=== PATIENT | female | born 1970 | race African-American/Black ===

== ENCOUNTER 2021-02-08 00:12 | Inpatient (IN) | payer OTHER ==
[~2021-02-08] VITALS: Ht 162.6 cm; Wt 100.8 kg
[2021-02-08] VITALS (64 sets, daily range): BP systolic 95–134; BP diastolic 57–81
[~2021-02-08 00:12] MED LIST: ADVAIR 250-501 EACH INH; ALBUTEROL INHAL17 GM INH; AMOXICILLIN875 MG PO; MEDROLDOSEPACK PO; NORCO 5-325 TA1 EACH PO; PROVENTIL IH; [UNRECOGNIZED DRUG - OTHER] MM
[2021-02-08 00:40] LABS: BE(vivo) -0.8 mmol/L (-2 to +3); HCO3 24.3 mmol/L (22.0-26.0); PCO2 42.1 mmHg (35.0-45.0); sO2 72.2 % (92.0-98.0)
[2021-02-08 00:41] LABS: PO2 38.8 mmHg (80.0-100.0)
[2021-02-08 00:47] LABS: MCH 27.6 pg (26.0-34.0); MCHC 32.4 g/dL (28.0-37.0)
[2021-02-08 00:49] LABS: MCV 85.1 fL (80.0-100.0); PLATELET COUNT 195 thou/uL (150-400); RDW 13.7 % (10.5-14.5); WBC 19.4 thou/uL (4.0-11.0)
[2021-02-08 00:53] LABS: CALCIUM 8.3 mg/dL (8.5-10.1); CREATININE 1.2 mg/dL (0.6-1.0); POTASSIUM 4.8 mmol/L (3.5-5.1)
[2021-02-08 01:03] LABS: DIRECT BILIRUBIN 0.2 mg/dL (<0.1-0.2); TOTAL BILIRUBIN 0.8 mg/dL (0.2-1.0); TOTAL PROTEIN 8.8 g/dL (6.4-8.2)
[2021-02-08 01:35] LABS: ABSOLUTE NEUTROPHILS 17.1 thou/uL (1.4-8.2); ANISOCYTOSIS 1+; LARGE PLATELETS FEW; PLATELET ESTIMATE NORMAL; POIKILOCYTOSIS 1+
[2021-02-08 07:33] LABS: HCO3 24.6 mmol/L (22.0-26.0); PCO2 61.6 mmHg (35.0-45.0); PO2 58.2 mmHg (80.0-100.0); sO2 84.1 % (92.0-98.0)
--- NOTE | 2021-02-08 08:15 | EKG ---
[address] [place] [address] ELECTROCARDIOGRAM REPORT Name: RICCI DRISCOLL Room #: 237-P [facility] IN M.R.#: [id number] Admission: 02/08/21 Attend Phys: Jimmy Jacobson MD Discharge: Date of : 72 Report #: [id number] [facility] ED Test Date: 2021-02-08 Test Time: 07:41:23 Pat Name: RICCI DRISCOLL Department: Room: 237 Gender: F Investment Fund Manager: thomas : 1970 Requested By: Zuleyka Singer Order Number: [id number] MD: Tee Monique Measurements Intervals [place] Rate: 104 P: 54 AL: 186 QRS: 88 QRSD: 109 T: 33 QT: 359 QTc: 473 Interpretive Statements Sinus tachycardia Poor R wave progression No previous ECG available for comparison Electronically Signed On 02-08-2021 8:15:19 CDT by Tee Monique [email or web address] <ELECTRONICALLY SIGNED> By: Tee Monique MD, [facility] 02/08/21 0815 [id number] Tee Monique MD, FACC /EPI
--- NOTE | 2021-02-08 09:12 | NUR ---
Pt arrived from ED around 0745 - Propofol, Versed, Fentanyl, and levophed infusing. Upon arrival BP stable with MAP in 80's, O2 sat 95% on vent, resp rate elevated into 40's. Cellphone and limited clothing in personal belongings bag at bedside.
--- NOTE | 2021-02-08 09:23 | NUR ---
Spoke with pt mother, Jessi, on the phone gave general update on pt condition and ventilator settings/drips. Mother stated she is a nurse as well and will be the primary contact to relay everyting to the rest of the family. RN informed mother of potential plan to begin paralytic for vent compliance and continue abx and sedation. Jessi stated she would call back later for an update to give patient's kids.
[2021-02-08 12:14] LABS: BE(vivo) -6.3 mmol/L (-2 to +3); HCO3 22.1 mmol/L (22.0-26.0); PCO2 56.8 mmHg (35.0-45.0); PO2 58.2 mmHg (80.0-100.0); sO2 83.8 % (92.0-98.0)
[2021-02-08 12:16] LABS: pH 7.208 (7.360-7.450)
--- NOTE | 2021-02-08 12:38 | NUR ---
VAT CONSULTED FOR CVL PLACEMENT. RIGHT 6FR TL JACC CATHETER PLACED. ALL LUMENS FLUSH BRISKLY AND RETURN BLOOD. PT TOLERATED WELL. RADIOLOGY REPORT TIP OVERLIES ATRIUM. RELEASED FOR USE, PER HOSPITAL VASCULAR ACCESS POLICY.
--- NOTE | 2021-02-08 13:37 | NUR ---
Pt proned successfully at 1315- VSS, no complications.
--- NOTE | 2021-02-08 15:34 | NUR ---
New admit today. COVID +. Enhanced isolation. vent 100% FIO2, peep 14. CM spoke with her mom, intro to jerzy. Janel lives at home with 2 young daughter 14 and 21 year old who little handicapped. Grandma looking after granddaughter while janel is here. Patient does not work. Goes [facility] for [facility] medication and to see dr. David harper or [facility]?. Janel has 5 living children in the area, other older. No dme. 2 steps in from garage. Independent when feeling ok, don't think she had the covid vaccine per mom janie. Discussed during unit rounds, per Pulmonary MD try transfer for ecmo.
--- NOTE | 2021-02-08 18:40 | NUR ---
Spoke with mother on phone - updated on central line, proning, and chemical paralyzation, general plan for rest. Mother stated she would check back in the morning to see how she is doing.
[2021-02-09] VITALS (92 sets, daily range): BP systolic 82–133; BP diastolic 52–81
--- NOTE | 2021-02-09 00:03 | NUR ---
This RN spoke to Erika Rubin NP at [phone] regarding patients hyperglycemia. Discussed insulin gtt and medications. No orders at this time.
[2021-02-09 02:06] LABS: GLYCOHEMOGLOBIN (HGB A1C) 10.3 % (4.8-5.6)
--- NOTE | 2021-02-09 02:20 | NUR ---
This RN , Hal, RT and team flipped patient supine at 0130. Patient tolerated well. Remains on nimbex for ventilator compliance. Will continue to monitor.
[2021-02-09 04:54] LABS: ABSOLUTE NEUTROPHILS 12.6 thou/uL (1.4-8.2); BASOPHILS 0.2 % (0.0-2.0); D-DIMER 1.87 ug/mLFEU (0.19-0.50); HEMOGLOBIN 11.9 gm/dL (12.0-15.0); INR 1.03; LYMPHOCYTES 4.1 % (24.0-44.0); MCH 28.9 pg (26.0-34.0); MCHC 33.1 g/dL (28.0-37.0); MCV 87.2 fL (80.0-100.0); PLATELET COUNT 236 thou/uL (150-400); POLYS 92.7 % (36.0-66.0); PROTIME 11.2 Seconds (10.5-12.1); RBC 4.13 mil/uL (4.20-5.00); RDW 13.7 % (10.5-14.5); WBC 13.5 thou/uL (4.0-11.0)
[2021-02-09 05:04] LABS: FIBRINOGEN > 860 mg/dL (201-437)
[2021-02-09 05:13] LABS: ALBUMIN 2.1 g/dL (3.4-5.0); CALCIUM 7.5 mg/dL (8.5-10.1); CREATININE 1.4 mg/dL (0.6-1.0); DIRECT BILIRUBIN 0.3 mg/dL (<0.1-0.2); PHOSPHORUS 3.2 mg/dL (2.5-4.9); POTASSIUM 4.8 mmol/L (3.5-5.1); TOTAL BILIRUBIN 0.6 mg/dL (0.2-1.0); TOTAL PROTEIN 7.1 g/dL (6.4-8.2)
--- NOTE | 2021-02-09 07:22 | NUR ---
Spoke with mother Jessi on phone, got verbal consent for Actemra and "anything you need to do to help my baby".
--- NOTE | 2021-02-09 11:37 | NUR ---
Spoke with pt mother and aunt on phone. Gave general updates and plan for the day including proning and potential PEEP wean. Mother Jessi stated she was very grateful for the ICU team and would call back later this evening to check on her.
--- NOTE | 2021-02-09 13:17 | NUR ---
Proned pt at 1315, tolerated turn. BP 109/75, O2 sat 92%. Sedation and TF running well, no interruptions.
--- NOTE | 2021-02-09 15:04 | NUR ---
Chart review, discussed during los hospitalist and in unit rounds with pulmonary MD. Vent 80-100% FIO2, nutritional support. Spoke with [facility] with [facility] transfer [facility], all machine for ecmo in use, no machine at this time. Discuss with Md to see what to cont. to try and transfer for ecmo over the weekend, if so call [facility] # [phone] to see if have any open ecmo and if can accept. Cm called [facility] transfer center [phone], spoke with Gema will call back if able to accept.
[2021-02-10] VITALS (83 sets, daily range): BP systolic 90–139; BP diastolic 51–88
[2021-02-10 00:06] LABS: HIV ANTIBODY Non Reactive (Non Reactive)
[2021-02-10 06:19] LABS: HEMATOCRIT 35.5 % (37.0-47.0); HEMOGLOBIN 11.5 gm/dL (12.0-15.0); MCH 27.9 pg (26.0-34.0); MCHC 32.4 g/dL (28.0-37.0); MCV 86.2 fL (80.0-100.0); RBC 4.12 mil/uL (4.20-5.00); WBC 13.9 thou/uL (4.0-11.0)
[2021-02-10 06:29] LABS: DIRECT BILIRUBIN 0.4 mg/dL (<0.1-0.2)
[2021-02-10 06:37] LABS: ALBUMIN 1.9 g/dL (3.4-5.0); CALCIUM 7.2 mg/dL (8.5-10.1); CREATININE 2.1 mg/dL (0.6-1.0); POTASSIUM 5.4 mmol/L (3.5-5.1); TOTAL BILIRUBIN 0.5 mg/dL (0.2-1.0); TOTAL PROTEIN 6.3 g/dL (6.4-8.2)
--- NOTE | 2021-02-10 12:03 | NUR ---
ASSUMED CARE OF PT AT 0700 DR. PÉREZ AT BEDSIDE AT 0830, ORDERS GIVEN TO STOP INSULIN DRIP AND START SLIDING SCALE. DR. PÉREZ WILL REASSES TOMORROW.
[2021-02-11] VITALS (56 sets, daily range): BP systolic 105–147; BP diastolic 60–88
[2021-02-11 06:08] LABS: HEMATOCRIT 35.1 % (37.0-47.0); HEMOGLOBIN 11.3 gm/dL (12.0-15.0); MCH 28.3 pg (26.0-34.0); MCHC 32.2 g/dL (28.0-37.0); MCV 87.8 fL (80.0-100.0); RDW 14.6 % (10.5-14.5); WBC 14.5 thou/uL (4.0-11.0)
[2021-02-11 06:15] LABS: DIRECT BILIRUBIN 0.3 mg/dL (<0.1-0.2); PHOSPHORUS 5.9 mg/dL (2.5-4.9)
[2021-02-11 06:57] LABS: CALCIUM 7.1 mg/dL (8.5-10.1); POTASSIUM 5.5 mmol/L (3.5-5.1); TOTAL BILIRUBIN 0.4 mg/dL (0.2-1.0); TOTAL PROTEIN 6.5 g/dL (6.4-8.2)
[2021-02-11 07:01] LABS: CREATININE 3.3 mg/dL (0.6-1.0)
--- NOTE | 2021-02-11 11:43 | NUR ---
ASSUMED CARE OF PT AT 0700. DR. PÉREZ AND DR. SEALS AT BEDSIDE AT 0845. ORDERS GIVEN. WILL FOLLOW POC.
[2021-02-11 16:48] LABS: CALCIUM 6.9 mg/dL (8.5-10.1); CREATININE 3.6 mg/dL (0.6-1.0); POTASSIUM 5.6 mmol/L (3.5-5.1)
--- NOTE | 2021-02-11 18:11 | NUR ---
PT TURNED FROM PRONE TO SUPINE AT 1420. NO COMPLICATIONS. VSS. WILL CONTINUE TO FOLLOW POC.
[2021-02-12] VITALS (50 sets, daily range): BP systolic 97–152; BP diastolic 56–88
[2021-02-12 04:36] LABS: BE(vivo) -8.1 mmol/L (-2 to +3); PCO2 45.6 mmHg (35.0-45.0); PO2 100.8 mmHg (80.0-100.0); sO2 96.6 % (92.0-98.0)
[2021-02-12 04:39] LABS: pH 7.238 (7.360-7.450)
[2021-02-12 04:52] LABS: HEMATOCRIT 34.5 % (37.0-47.0); HEMOGLOBIN 11.1 gm/dL (12.0-15.0); MCHC 32.2 g/dL (28.0-37.0); RBC 3.97 mil/uL (4.20-5.00); RDW 14.6 % (10.5-14.5); WBC 12.6 thou/uL (4.0-11.0)
[2021-02-12 05:42] LABS: ALBUMIN 2.1 g/dL (3.4-5.0); CALCIUM 6.9 mg/dL (8.5-10.1); CREATININE 3.6 mg/dL (0.6-1.0); DIRECT BILIRUBIN 0.1 mg/dL (<0.1-0.2); PHOSPHORUS 5.7 mg/dL (2.5-4.9); POTASSIUM 4.9 mmol/L (3.5-5.1); TOTAL BILIRUBIN 0.4 mg/dL (0.2-1.0); TOTAL PROTEIN 6.2 g/dL (6.4-8.2)
--- NOTE | 2021-02-12 11:51 | NUR ---
Discussed during am unit rounds and los. Covid +, vent FIO2 80%, Peep 14. Nutritional support. prone. Spoke with alverto with [facility] transfer team for possible ecmo transfer. Fax face sheet to [phone] per [facility] request. Will cont following as needed for dc needs.
[2021-02-12 13:18] LABS: BE(vivo) -8.6 mmol/L (-2 to +3); HCO3 19.4 mmol/L (22.0-26.0); PCO2 50.3 mmHg (35.0-45.0); sO2 96.7 % (92.0-98.0)
[2021-02-12 13:21] LABS: pH 7.204 (7.360-7.450)
--- NOTE | 2021-02-12 17:10 | NUR ---
PATIENT PRONED AT 1115. SEDATION INCREASED SO PT COULD TOLERATED PRONE BETTER. PATIENT NOT PROGRESSING TOWARDS THE PLAN OF CARE EVIDENCED BY INCREASED OXYGENATION/SEDATION NEEDS TO MAINTAIN O2 SATURATION ABOVE 90%.
--- NOTE | 2021-02-12 22:00 | NUR ---
RETURNED CALL TO PT MOTHER DANETTE DRISCOLL, UPDATED ON PT CURRENT CONDITION AND VITAL SIGNS, PLAN OF CARE DISCUSSED, AND ALL QUESTIONS ANSWERED.
[2021-02-13] VITALS (60 sets, daily range): BP systolic 119–180; BP diastolic 62–97
[2021-02-13 05:07] LABS: HEMATOCRIT 35.4 % (37.0-47.0); HEMOGLOBIN 11.5 gm/dL (12.0-15.0); MCH 28.7 pg (26.0-34.0); MCHC 32.5 g/dL (28.0-37.0); MCV 88.5 fL (80.0-100.0); RDW 14.9 % (10.5-14.5); WBC 18.8 thou/uL (4.0-11.0)
[2021-02-13 05:26] LABS: ALBUMIN 2.2 g/dL (3.4-5.0); CALCIUM 7.2 mg/dL (8.5-10.1); CREATININE 3.6 mg/dL (0.6-1.0); PHOSPHORUS 5.9 mg/dL (2.5-4.9); POTASSIUM 4.8 mmol/L (3.5-5.1)
[2021-02-13 07:52] LABS: PCO2 48.4 mmHg (35.0-45.0); PO2 80.3 mmHg (80.0-100.0); sO2 92.9 % (92.0-98.0)
[2021-02-13 07:53] LABS: pH 7.188 (7.360-7.450)
--- NOTE | 2021-02-13 10:15 | NUR ---
[facility] c all ecmo beds at full, only have 3 and in use per [facility]. Cont to require vent support. nutritional support. low grade temp reported. will cont following as needed.
[2021-02-13 11:18] LABS: LIPASE 1141 U/L (73-393); TRIGLYCERIDE 1802 mg/dL (<150)
--- NOTE | 2021-02-13 22:48 | NUR ---
ASSUMED CARE AT 1900. PT W/ELEVATED BP AND RAPID RR CLOSE TO 40. SPOKE TO DR. SHERIDAN AT 2099, OBTAINED ORDER FOR STAT CXR. CALLED RESULTS AT 2209, OBTAINED ORDER FOR IVP LAXIX x1; DR. SHERIDAN DID NOT WANT TO PARALYZE AT THIS POINT, OKAY W/PT BEING MAXED ON VERSED, FENTANYL, AND PRECEDEX. WILL CONTINUE TO MONITOR.
[2021-02-14] VITALS (49 sets, daily range): BP systolic 143–184; BP diastolic 77–111
[2021-02-14 06:33] LABS: ALBUMIN 2.4 g/dL (3.4-5.0); CALCIUM 8.3 mg/dL (8.5-10.1); CREATININE 2.8 mg/dL (0.6-1.0); PHOSPHORUS 5.5 mg/dL (2.6-4.7); POTASSIUM 3.7 mmol/L (3.5-5.1)
[2021-02-14 09:56] LABS: BE(vivo) 4.3 mmol/L (-2 to +3); PCO2 49.6 mmHg (35.0-45.0); PO2 93.1 mmHg (80.0-100.0)
--- NOTE | 2021-02-14 11:20 | NUR ---
FAXED CLINICALS TO [facility] TRANSFER [facility]. WILL CONFIRM WITH STEVEN/INTAKE THAT THEY RECEIVED. [facility] FAX [phone]
--- NOTE | 2021-02-14 13:11 | NUR ---
ASSUMED CARE OF PT AT 0700. DR. SHERIDAN AND DR. HOOK AT BEDSIDE THIS AM. NEW ORDERS GIVEN. WILL FOLLOW POC.
--- NOTE | 2021-02-14 13:13 | NUR ---
PT PRONED AT 1245. TOLERATED FAIRLY. WILL CONTINUE TO MONITOR.
--- NOTE | 2021-02-14 13:36 | NUR ---
50-year-old female remains on list for ECMO and declined by [facility] given comorbidities; treatment continues for: Acute Hypoxemic Respiratory Failure, COVID 19 Pneumonia, SARS - CoV 2 - ARDS, Severe Sepsis, GISSEL/ATN. CM only option is [facility] transfer Center ([phone]) who is reviewing daily for bed availability. Spoke with Transfer Center at 0921 AM for availability and was notified at this time that did not but gave cell number to return call if a bed was to become available. [phone] remains the patient's next of kin and contact. Pulmonary care of: FI02 of 90% and PEEP of 12. Per attending AM MD review: Plan to continue current plan of ICU care and will follow with all consultants. CM continues to follow MD's direction for care and transition; including daily search for ECMO and will intervene as needs are identified.
--- NOTE | 2021-02-14 17:09 | NUR ---
Call back from María Elena at [facility] transfer center at [phone] and still no ECMO beds. Will attempt again in the AM.
--- NOTE | 2021-02-14 18:13 | NUR ---
PT NOT PROGRESSING TOWARDS PLAN OF CARE DUE TO INABILTY TO WEAN OFF OF THE VENTILATOR AND CONTINUED HIGH OXYGEN DEMAND.
[2021-02-15] VITALS (47 sets, daily range): BP systolic 134–180; BP diastolic 74–93
[2021-02-15 04:49] LABS: BE(vivo) 8.2 mmol/L (-2 to +3); HCO3 33.6 mmol/L (22.0-26.0); PCO2 49.9 mmHg (35.0-45.0); PO2 67.1 mmHg (80.0-100.0); pH 7.446 (7.360-7.450); sO2 93.8 % (92.0-98.0)
[2021-02-15 05:50] LABS: HEMATOCRIT 35.5 % (37.0-47.0); HEMOGLOBIN 11.6 gm/dL (12.0-15.0); MCHC 32.7 g/dL (28.0-37.0); MCV 85.7 fL (80.0-100.0); RBC 4.14 mil/uL (4.20-5.00); RDW 14.5 % (10.5-14.5); WBC 13.7 thou/uL (4.0-11.0)
[2021-02-15 05:56] LABS: CREATININE 2.3 mg/dL (0.6-1.0); POTASSIUM 4.1 mmol/L (3.5-5.1)
[2021-02-15 05:57] LABS: PHOSPHORUS 3.7 mg/dL (2.6-4.7)
[2021-02-15 09:38] LABS: T-SPOT.TB Negative
--- NOTE | 2021-02-15 12:35 | NUR ---
Spoke with queta at [facility] transfer center, no ecmo machines, all 3 in use and low for the foreseeable future that they would be able to accept transfer for ecmo.
--- NOTE | 2021-02-15 14:25 | NUR ---
NOTE: Was witness to conversation that CM had with María Elena in the transfer center today for ECMO transfer as [facility] did not believe they will have a bed for this patient.
--- NOTE | 2021-02-15 19:03 | NUR ---
ASSUMED CARE OF PT AT 0700 PT IS NOT MEETING GOALS DUE TO STILL REQUIRING HEAVY SEDATION AND 100% FIO2 ON THE VENT
[2021-02-16] VITALS (45 sets, daily range): BP systolic 121–157; BP diastolic 64–83
[2021-02-16 04:48] LABS: ABSOLUTE NEUTROPHILS 12.5 thou/uL (1.4-8.2); BASOPHILS 0.1 % (0.0-2.0); EOSINOPHILS 0.1 % (0.0-3.0); HEMATOCRIT 34.8 % (37.0-47.0); HEMOGLOBIN 11.4 gm/dL (12.0-15.0); LYMPHOCYTES 4.4 % (24.0-44.0); MCH 28.2 pg (26.0-34.0); MCHC 32.6 g/dL (28.0-37.0); MCV 86.3 fL (80.0-100.0); MONOCYTES 2.9 % (1.0-8.0); PLATELET COUNT 205 thou/uL (150-400); POLYS 92.5 % (36.0-66.0); RBC 4.03 mil/uL (4.20-5.00); RDW 14.4 % (10.5-14.5); WBC 13.6 thou/uL (4.0-11.0)
[2021-02-16 05:29] LABS: ALBUMIN 2.5 g/dL (3.4-5.0); CALCIUM 8.1 mg/dL (8.5-10.1); CREATININE 1.7 mg/dL (0.6-1.0); PHOSPHORUS 5.2 mg/dL (2.5-4.9); POTASSIUM 4.1 mmol/L (3.5-5.1); TOTAL BILIRUBIN 0.4 mg/dL (0.2-1.0); TOTAL PROTEIN 6.2 g/dL (6.4-8.2)
--- NOTE | 2021-02-16 14:02 | NUR ---
Discussed during unite rounds and los. Vent support, 8 days, nutritional support. No anticipated dc over the weekend. Will cont following as needed for dc needs. Unable to seek transfer for ecmo r/t number of days she cont to need vent support.
--- NOTE | 2021-02-16 19:32 | NUR ---
Patient slowly progressing towards goal. Able to wean oxygen down to 80%. However, she patient wakes up from sedation increase in RR and decrease in oxgygen immediately. Spoke with patients mother today. All questions and concerns were addressed.
[2021-02-17] VITALS (45 sets, daily range): BP systolic 119–159; BP diastolic 66–92
[2021-02-17 00:42] LABS: ALBUMIN 2.6 g/dL (3.4-5.0); CREATININE 1.5 mg/dL (0.6-1.0); PHOSPHORUS 4.2 mg/dL (2.5-4.9); POTASSIUM 4.1 mmol/L (3.5-5.1); TOTAL BILIRUBIN 0.4 mg/dL (0.2-1.0); TOTAL PROTEIN 6.1 g/dL (6.4-8.2)
[2021-02-17 04:55] LABS: ABSOLUTE NEUTROPHILS 13.7 thou/uL (1.4-8.2); BASOPHILS 0.3 % (0.0-2.0); EOSINOPHILS 0.2 % (0.0-3.0); HEMATOCRIT 34.3 % (37.0-47.0); HEMOGLOBIN 11.1 gm/dL (12.0-15.0); LYMPHOCYTES 3.4 % (24.0-44.0); MCH 27.8 pg (26.0-34.0); MCHC 32.3 g/dL (28.0-37.0); MCV 86.1 fL (80.0-100.0); MONOCYTES 2.6 % (1.0-8.0); PLATELET COUNT 176 thou/uL (150-400); POLYS 93.5 % (36.0-66.0); RBC 3.99 mil/uL (4.20-5.00); RDW 14.5 % (10.5-14.5); WBC 14.7 thou/uL (4.0-11.0)
[2021-02-17 05:24] LABS: BE(vivo) 6.4 mmol/L (-2 to +3); HCO3 30.9 mmol/L (22.0-26.0); PCO2 44.1 mmHg (35.0-45.0); PO2 64.3 mmHg (80.0-100.0); pH 7.464 (7.360-7.450); sO2 93.5 % (92.0-98.0)
--- NOTE | 2021-02-17 06:33 | NUR ---
Pt's vital signs stayed within limit during the shift. Pt still vented/sedated. Pt's urine was blood tinged starting around 0000, will continue to monitor.
[2021-02-17 10:48] LABS: BE(vivo) 5.6 mmol/L (-2 to +3); PCO2 48.7 mmHg (35.0-45.0); pH 7.421 (7.360-7.450); sO2 92.3 % (92.0-98.0)
[2021-02-18] VITALS (47 sets, daily range): BP systolic 84–195; BP diastolic 35–99
--- NOTE | 2021-02-18 01:57 | NUR ---
ASSUMED CARE OF PT AT 1845. PT SEDATED ON FENTANYL, VERSED. AND PRECEDEX. RON OPENS EYES SPONTANEOUSLY, +GAG.+ COUGH. DOES NOT FOLLOW COMMANDS. VSS AFEBRILE.RR 20-30S VENT RR SET AT 30. DESATS OCCASIONALLY TO 87-88%. IMPROVES AFTER SUCTIONING. MOD AMTS BLOOD TINGED SPUTUM NOTED WITH SUCTIONING. BLOOD NOTED IN GUTIERREZ. NOTIFIED MACHINE HOOP MAKER HELPER . HELD LOVENOX DOSE TONIGHT ORDERED. WILL HAVE DAY SHIFT NS SPEAK WITH IN AM REGARDING LOVENOX AND CONTINUED BLEEDING PER MACHINE HOOP MAKER HELPER REQUEST. BLOOD IN GUTIERREZ APPEARS TO BE SLOWING AND LIGHTENING. RESIDUALS CONTINUE TO BE ELEVATED. TF AT SAME RT OF 20. WILL CONTINUE TO MONITOR PT FOR CHANGES.
[2021-02-18 04:39] LABS: BE(vivo) 4.1 mmol/L (-2 to +3); HCO3 29.4 mmol/L (22.0-26.0); PCO2 47.3 mmHg (35.0-45.0); pH 7.411 (7.360-7.450); sO2 88.5 % (92.0-98.0)
[2021-02-18 04:40] LABS: PO2 54.6 mmHg (80.0-100.0)
[2021-02-18 06:28] LABS: ABSOLUTE NEUTROPHILS 18.3 thou/uL (1.4-8.2); BASOPHILS 0.3 % (0.0-2.0); EOSINOPHILS 0.8 % (0.0-3.0); HEMATOCRIT 32.7 % (37.0-47.0); HEMOGLOBIN 10.4 gm/dL (12.0-15.0); LYMPHOCYTES 4.4 % (24.0-44.0); MCH 27.6 pg (26.0-34.0); MCHC 31.6 g/dL (28.0-37.0); MCV 87.2 fL (80.0-100.0); MONOCYTES 2.8 % (1.0-8.0); PLATELET COUNT 145 thou/uL (150-400); POLYS 91.7 % (36.0-66.0); RBC 3.75 mil/uL (4.20-5.00); RDW 14.5 % (10.5-14.5)
[2021-02-18 06:42] LABS: ALBUMIN 2.4 g/dL (3.4-5.0); CALCIUM 8.2 mg/dL (8.5-10.1); CREATININE 1.3 mg/dL (0.6-1.0); PHOSPHORUS 4.2 mg/dL (2.6-4.7); POTASSIUM 4.2 mmol/L (3.5-5.1); TOTAL BILIRUBIN 0.4 mg/dL (0.2-1.0); TOTAL PROTEIN 5.9 g/dL (6.4-8.2)
--- NOTE | 2021-02-18 08:13 | NUR ---
PT BEGAN COUGHING LAST NIGHT AND MILDLY DESATTED. DR. SHERIDAN NOTIFIED OF BLOOD IN SPUTUM ORAL AND TRACH AND GUTIERREZ. NOTIFED HIM THAT LOVENOX WAS HELD LAST NIGHT. ABGS DONE AND CALLED TO . REPORTED I&O. D5W STOPPED. LASIX GIVEM. ALBUMIN GIVEN. PT HAS DIURESED 1050 OFF THIS AM ON DAY SHIFT SO FAR AFTER LASIX. REPORTED RESIDUALS HAVE REMAINED AROUND 150.
--- NOTE | 2021-02-18 15:39 | NUR ---
Spoke with Dr. Cesar joshuaing absent restraint order for 02/17/21, restraints for 02/17/21 approved by although unable to place order at this time.
[2021-02-18 16:29] LABS: URINE BILIRUBIN NEGATIVE (Negative); URINE BLOOD 3+ (Negative); URINE GLUCOSE-RANDOM* NEGATIVE (Negative); URINE KETONES NEGATIVE (Negative); URINE NITRITE-REFLEX NEGATIVE (Negative); URINE PROTEIN (DIPSTICK) TRACE (Negative); URINE SPECIFIC GRAVITY 1.015 (1.005-1.035); URINE UROBILINOGEN 0.2 E.U./dl (0.2-1.0)
[2021-02-18 16:31] LABS: URINE CLARITY SL HAZY; URINE COLOR LT RED; URINE LEUKOCYTES-REFLEX 2+ (Negative)
[2021-02-18 16:36] LABS: CASTS None Seen /LPF (None Seen); SQUAMOUS 0-3 Few /LPF (0-3)
[2021-02-18 16:37] LABS: BACTERIA-REFLEX None Seen /HPF (None Seen); CRYSTALS None Seen /LPF (None Seen); URINE RBC >20 Many /HPF (NONE SEEN); URINE WBC-REFLEX 0-5 Rare /HPF (0-5); YEAST-REFLEX Present (None Seen)
[2021-02-19] VITALS (20 sets, daily range): BP systolic 108–145; BP diastolic 61–94
[2021-02-19 03:56] LABS: BE(vivo) 0.3 mmol/L (-2 to +3); HCO3 25.8 mmol/L (22.0-26.0); PCO2 45.6 mmHg (35.0-45.0); PO2 70.4 mmHg (80.0-100.0); sO2 93.6 % (92.0-98.0)
[2021-02-19 06:26] LABS: ABSOLUTE NEUTROPHILS 11.7 thou/uL (1.4-8.2); BASOPHILS 0.2 % (0.0-2.0); HEMATOCRIT 30.4 % (37.0-47.0); HEMOGLOBIN 9.6 gm/dL (12.0-15.0); LYMPHOCYTES 5.5 % (24.0-44.0); MCH 27.7 pg (26.0-34.0); MCHC 31.5 g/dL (28.0-37.0); MCV 87.8 fL (80.0-100.0); MONOCYTES 3.3 % (1.0-8.0); PLATELET COUNT 92 thou/uL (150-400); RBC 3.47 mil/uL (4.20-5.00); RDW 14.3 % (10.5-14.5)
[2021-02-19 06:45] LABS: ALBUMIN 2.6 g/dL (3.4-5.0); CALCIUM 8.5 mg/dL (8.5-10.1); CREATININE 1.2 mg/dL (0.6-1.0); POTASSIUM 4.6 mmol/L (3.5-5.1); TOTAL BILIRUBIN 0.5 mg/dL (0.2-1.0); TOTAL PROTEIN 5.8 g/dL (6.4-8.2)
--- NOTE | 2021-02-19 08:31 | NUR ---
Unable to tolerate sedation weaning - Versed turned down to 2 mg, pt awake and fighting vent/coughing strongly. Suctioned large mucous plug/blood tinged. Sat 79% but rising after sedation turned back up.
--- NOTE | 2021-02-19 12:38 | NUR ---
Spoke with patient's mother, Jessi, over the phone. Gave general update on overall status, oxygen requirements, labs. Per Jessi, she is concerned that patient's wallet has gotten lost at home and would like to speak to a child protective services social worker about getting paperwork to bring to bank to get her debit cards cancelled. Will reach out to social work. Also going to reach out to ID to confirm initial date of COVID (+) test.
--- NOTE | 2021-02-19 16:03 | NUR ---
Spoke with mother Jessi for afternoon update - mother asked about possibility of putting in a trach. RN went through criteria for safe trach procedures including lower ventilator requirements, better toleration of turns/suctioning etc. before trach would be possible. Jessi stated she understood and is "just hoping and praying she turns a corner". RN answered all questions at this time.
--- NOTE | 2021-02-19 16:50 | NUR ---
Chart review, COVID +, vent, nutritional support. Spoke with martín fito lima, she request letter saying that martín is in hospital, so she can provide to martín cleary. no other question or concerns. bedside nurses have been speaking with martín payton as well. Will cont following as needed for dc needs.
[2021-02-20] VITALS (64 sets, daily range): BP systolic 114–158; BP diastolic 60–94
[2021-02-20 10:00] LABS: HEMATOCRIT 30.2 % (37.0-47.0); HEMOGLOBIN 9.7 gm/dL (12.0-15.0); MCH 28.3 pg (26.0-34.0); MCV 88.3 fL (80.0-100.0); RBC 3.42 mil/uL (4.20-5.00); RDW 14.9 % (10.5-14.5); WBC 10.9 thou/uL (4.0-11.0)
[2021-02-20 10:17] LABS: ALBUMIN 2.5 g/dL (3.4-5.0); CALCIUM 8.7 mg/dL (8.5-10.1); CREATININE 1.1 mg/dL (0.6-1.0); PHOSPHORUS 4.6 mg/dL (2.6-4.7); POTASSIUM 5.2 mmol/L (3.5-5.1)
[2021-02-20 10:18] LABS: INR 1.2
--- NOTE | 2021-02-20 10:55 | NUR ---
1050HRS - MOTHER CALLED AND WAS UPDATE ON PT'S CONDITION, STATUS, GIVEN VENT SETTINGS, V/S, AND OUTPUT. PT'S MOTHER WAS CONSERNED WITH TRACH AND PEG DATE.
--- NOTE | 2021-02-20 16:00 | NUR ---
Note for patient mom given to bedside and copy on chart.
[2021-02-21] VITALS (56 sets, daily range): BP systolic 99–210; BP diastolic 51–107
--- NOTE | 2021-02-21 02:11 | NUR ---
AROUND MIDNIGHT, PT BECAME RESTLESS, EYES OPENS, TACHYCARDIC (HR 120S-130S), RR 30S-40S, GAGGING ON ETT, SPO2 DROPPED TO 82-89% ON VENT WITH 100% FIO2. INCREASED SEDATION WITH PRECEDEX, VERSED, AND FENTANYL DRIPS TO MAX DOSAGES. SUCTIONED VIA ETT AND ORALLY. RT PAGED TO MANAGE VENT. MINIMAL IMPROVEMENT IN SYMPTOMS/VITAL SIGNS WITH INCREASED SEDATIION. NOTIFIED DR JONES. ORDERS RECEIVED FOR DILAUDID GTT, PRN MEDS, AND TO HOLD TF AND PLACE OGT TO LIS DUE TO TF RESIDUAL >400ML. PT RESPONDED WELL TO PRN VERSED DOSE. HR NOW 90S-100S, RR 20S, SPO2 >90%. WAITING ON PHARMACY FOR DILAUDID GTT. PER DR JONES, HE WANTS TO KEEP PT WELL SEDATED. WILL CONTINUE TO MONITOR FURTHER. NOT PROGRESSING WELL TOWARD POC. WILL UPDATE FAMILY IN THE MORNING.
--- NOTE | 2021-02-21 05:02 | NUR ---
VERSED/FENTANYL/PRECEDEX/DILAUDID GTTS FOR SEDATION AND VENT MANAGEMENT. PT HAS BEEN RESTING CALMLY AND VITAL SIGNS IMPROVED SINCE DILAUDID GTT WAS INITIATED. SPO2 NOW 92-94% ON VENT. OGT TO LIS. SOME BLOOD NOTED IN ETT AND URINE. PT HAD A LARGE LOOSE BOWEL MOVEMENT THIS MORNING. BILATERAL WRIST RESTRAINTS IN PLACE TO PREVENT DISCONNECTING TUBES/LINES. NOT PROGRESSING WELL TOWARD POC GOALS. WILL MONITOR FURTHER.
[2021-02-21 06:34] LABS: HEMATOCRIT 30.1 % (37.0-47.0); HEMOGLOBIN 9.6 gm/dL (12.0-15.0); MCH 28.2 pg (26.0-34.0); MCHC 31.8 g/dL (28.0-37.0); MCV 88.7 fL (80.0-100.0); RBC 3.4 mil/uL (4.20-5.00); RDW 14.5 % (10.5-14.5); WBC 9.5 thou/uL (4.0-11.0)
[2021-02-21 06:45] LABS: CALCIUM 8.7 mg/dL (8.5-10.1); POTASSIUM 4.4 mmol/L (3.5-5.1)
--- NOTE | 2021-02-21 07:23 | NUR ---
0707 - THIS RN UPDATED PT'S MOTHER (DANETTE) ON POC AND HOW PT DID DURING THE NIGHT. ALL QUESTIONS ANSWERED. UPDATED DAY SHIFT RN.
--- NOTE | 2021-02-21 12:00 | NUR ---
MOM, DANETTE, VISITED PATIENT TODAY AND SHE WAS UPDATED ON CARE PLAN AND CURRENT STATUS.
[2021-02-21 12:34] LABS: BE(vivo) 4.1 mmol/L (-2 to +3); HCO3 29.7 mmol/L (22.0-26.0); PCO2 49.5 mmHg (35.0-45.0); pH 7.396 (7.360-7.450); sO2 85.5 % (92.0-98.0)
[2021-02-21 12:35] LABS: PO2 50.9 mmHg (80.0-100.0)
--- NOTE | 2021-02-21 15:30 | NUR ---
1530- FECAL MANAGMENT SYSTEM PLACED PER PROTOCOL. RECTAL EVALUATION PERFORMED, GOOD SPHINCTER TONE, NO IMPACTION NOTED, LIQUID STOOL. PATIENT TOLERATED PROCEEDURE.
--- NOTE | 2021-02-21 18:53 | NUR ---
PT PRESENTED THIS MORNING WITH INCREASED AGITATION/RESTLESSNESS, DIFFICULT TO SEDATED WHILE BEING INTUBATED PT HAS REACTIONS TO PROPOFOL. PT IS NOW SEDATED WITH DILUADID, VERSED AND PRECEDEX. PT WILL OCCASSIONALLY AWAKEN LOOK AROUND, MOVE HER ARMS, WHEN AWAKE IS ABLE TO NOD HER HEAD TO YES AND NO QUESTIONS, ABLE TO MOVE HANDS/FEET ON COMMAND WELL. PT STILL AT FIO2 OF 100% WITH A PEEP OF 14. PT WAS TAKEN OUT OF ISOLATION FOR COIVD TODAY. PT REMAINS IN RESTAINTS AT THIS TIME DUE TO THE ABILITY TO PULL TUBES AND AWAKEN. PT ALSO PRESENTED THIS MORNING WITH HYPOGYCEMIA WITH BS OF 52, GIVEN D50 AMP WITH GOOD RESULTS WELL A D10 INFUSION AT A RATE OF 100ML/HR WITH BLOOD SUGARS ABOVE 150 AND Q1 BS CHECKS. D10 INFUSION HAS BEEN STOPPED. PT HAS HAD 5 LIQUID BROWN STOOLS TODAY, FMS WAS PLACED IN PATIENT. PT HAD MOTHER AND DAUGHTER VISIT HER TODAY. PT IS NOT PROGRESSING AT THIS TIME TOWARDS DISCHARGE DUE TO DECREASE OXYGENATION LEVELS WITH TURNS. WILL CONTINUE TO FOLLOW POC.
--- NOTE | 2021-02-21 19:00 | NUR ---
PATIENT MORE COMFORTABLE AT THIS TIME, NO FURTHER DESATURATIONS WITH TURNS, DUE TO CURRENT GTT REGIMEN. WILL CONTINUE TO MONITOR.
[2021-02-22] VITALS (43 sets, daily range): BP systolic 113–164; BP diastolic 65–104
[2021-02-22 05:39] LABS: HEMATOCRIT 28.4 % (37.0-47.0); HEMOGLOBIN 9.1 gm/dL (12.0-15.0); MCH 28.9 pg (26.0-34.0); MCHC 32.1 g/dL (28.0-37.0); MCV 90.1 fL (80.0-100.0); RBC 3.16 mil/uL (4.20-5.00); RDW 14.7 % (10.5-14.5); WBC 7.9 thou/uL (4.0-11.0)
[2021-02-22 05:50] LABS: CALCIUM 8.3 mg/dL (8.5-10.1); POTASSIUM 4.5 mmol/L (3.5-5.1)
--- NOTE | 2021-02-22 11:42 | NUR ---
1130HRS - PT'S MOTHER @ BEDSIDE.
--- NOTE | 2021-02-22 15:58 | NUR ---
1530HRS - PT PRONED.
[2021-02-23] VITALS (51 sets, daily range): BP systolic 118–178; BP diastolic 68–102
--- NOTE | 2021-02-23 00:41 | NUR ---
Pt placed in supine position at 2345 due to not having enough staff after midnight. Pt tolerated going from prone to supine well; able to titrate FiO2 down to 80% and keep O2 sat 94-96%. OG remains clamped due to high residuals earlier. Suctioning blood tinged sputum from ETT. No new facial abrasions from proning noted.
[2021-02-23 05:52] LABS: HEMATOCRIT 29.3 % (37.0-47.0); HEMOGLOBIN 9.3 gm/dL (12.0-15.0); MCH 28.4 pg (26.0-34.0); MCHC 31.6 g/dL (28.0-37.0); MCV 89.8 fL (80.0-100.0); RBC 3.27 mil/uL (4.20-5.00); RDW 14.2 % (10.5-14.5); WBC 7.5 thou/uL (4.0-11.0)
[2021-02-23 06:34] LABS: CALCIUM 8.4 mg/dL (8.5-10.1); CREATININE 0.8 mg/dL (0.6-1.0); POTASSIUM 4.5 mmol/L (3.5-5.1)
--- NOTE | 2021-02-23 11:05 | NUR ---
Discussed during los and unit rounds. Her mom was face time video during unit rounds. She cont. to require vent, nutritional support. Out of isolation. No anticipated dc over the weekend will cont. following as needed for dc needs.
[2021-02-23 12:27] LABS: ALBUMIN 2.8 g/dL (3.4-5.0); DIRECT BILIRUBIN 0.1 mg/dL (<0.1-0.2); MAGNESIUM 1.8 mg/dL (1.8-2.4); PHOSPHORUS 3.4 mg/dL (2.5-4.9); TOTAL BILIRUBIN 0.3 mg/dL (0.2-1.0); TOTAL PROTEIN 6.2 g/dL (6.4-8.2)
--- NOTE | 2021-02-23 15:41 | NUR ---
PT GIVEN LASIX AT 1130 THIS MORNING, IT WAS DISCOVERED AT 1500 THAT THE PATIENT WAS NOT HAVING A GOOD RESPONSE TO MEDICATION, CHECKED GUTIERREZ LINE, NO KINKS. BLADDER SCANNED PT SHOWING PT HAD LARGE AMOUNT OF URINE RETAINED, GUTIERREZ CATH IRRIGATED WITH SERTILE WATER AND WHAT APPEARED TO BE A CLOT WAS DISLODGED INSIDE THE GUTIERREZ. PT HAD GOOD RESPONSE AFTER IRRIGATION WITH APPROX 900ML OF URINARY OUTPUT, URINE IS BLOOD TINGED WITH LOTS OF SEDIMENT. WILL CONTINUE TO REASSESS AND MONITOR URINARY OUTPUT.
--- NOTE | 2021-02-23 16:41 | NUR ---
PT ABLE TO HAVE MOTHER FACE TIME WITH THE PATIENT TODAY FOR APPROX 1HR, PT ABLE TO OPEN EYES AND NOD HEAD OCCASSIONALLY TO FAMILY MEMBERS REQUEST. PT HAS FAMILY/FRIENDS ONE AT A TIME VISITING AT THIS TIME.
--- NOTE | 2021-02-23 17:40 | NUR ---
PT REMAINS MODERATELY SEDATED, SEDATION MEDICATIONS REMAIN AT NORMAL LEVELS FOR THE PATIEN AT THIS TIME. PT FIO2 WAS INCREASED TO 100% DUE TO OXYGENATION IN THE LOW 90'S- HIGH 80'S, PT IS NOT BACK TO 90% FIO2 WITH GOOD RESPONSE. PT HAD GOOD RESPONSE TO LASIX WELL. PT MOTHER REQUESTS THAT PATIENT HAVE NO MORE VISITORS UNTIL SHE DEEMS APPROIATE. PT BLOOD SUGARS CONTINUE TO RISE THROUGHOUT THE DAY DESPITE NO TUBE FEEDING, PT WILL BE PLACED ON SLIDING SCALE LATER THIS EVENING. WILL CONTINUE TO MONITOR AND FOLLOW POC.
[2021-02-24] VITALS (27 sets, daily range): BP systolic 96–178; BP diastolic 51–94
[2021-02-24 06:20] LABS: HEMATOCRIT 29.2 % (37.0-47.0); HEMOGLOBIN 9.2 gm/dL (12.0-15.0); MCH 28.1 pg (26.0-34.0); MCHC 31.3 g/dL (28.0-37.0); MCV 89.9 fL (80.0-100.0); RBC 3.25 mil/uL (4.20-5.00); RDW 14.6 % (10.5-14.5); WBC 7.6 thou/uL (4.0-11.0)
[2021-02-24 06:31] LABS: CALCIUM 8.7 mg/dL (8.5-10.1); CREATININE 0.8 mg/dL (0.6-1.0); POTASSIUM 4.6 mmol/L (3.5-5.1)
[2021-02-24 06:36] LABS: ALBUMIN 2.6 g/dL (3.4-5.0); DIRECT BILIRUBIN 0.1 mg/dL (<0.1-0.2); MAGNESIUM 1.8 mg/dL (1.8-2.4); PHOSPHORUS 3.9 mg/dL (2.6-4.7); TOTAL BILIRUBIN 0.3 mg/dL (0.2-1.0); TOTAL PROTEIN 5.6 g/dL (6.4-8.2)
[2021-02-25] VITALS (24 sets, daily range): BP systolic 94–131; BP diastolic 51–74
[2021-02-25 06:51] LABS: ALBUMIN 2.5 g/dL (3.4-5.0); CALCIUM 8.8 mg/dL (8.5-10.1); CREATININE 0.7 mg/dL (0.6-1.0); MAGNESIUM 1.7 mg/dL (1.8-2.4); PHOSPHORUS 4.7 mg/dL (2.6-4.7); POTASSIUM 4.9 mmol/L (3.5-5.1); TOTAL BILIRUBIN 0.3 mg/dL (0.2-1.0); TOTAL PROTEIN 5.7 g/dL (6.4-8.2)
--- NOTE | 2021-02-25 11:43 | NUR ---
PATIENT'S MOTHER, DANETTE, CALLED FROM [phone] AND SHE WAS UPDATED AND EDUCATED ON THE PATIENT'S CONDITION AND PLAN OF CARE.
--- NOTE | 2021-02-25 16:56 | NUR ---
PATIENT SLOWLY PROGRESSING TOWARDS THE PLAN OF CARE EVIDENCED BY DECREASED OXYGEN REQUIREMENTS. MOTHER AND DAUGHTER OF THE PATIENT VISITED THIS AFTERNOON AT 1600.
[2021-02-26] VITALS (28 sets, daily range): BP systolic 76–187; BP diastolic 37–92
[2021-02-26 06:02] LABS: ABSOLUTE NEUTROPHILS 4.9 thou/uL (1.4-8.2); BASOPHILS 0.4 % (0.0-2.0); EOSINOPHILS 2.3 % (0.0-3.0); HEMATOCRIT 29.2 % (37.0-47.0); HEMOGLOBIN 9.2 gm/dL (12.0-15.0); LYMPHOCYTES 13.7 % (24.0-44.0); MCH 28.4 pg (26.0-34.0); MCHC 31.4 g/dL (28.0-37.0); MCV 90.5 fL (80.0-100.0); PLATELET COUNT 194 thou/uL (150-400); POLYS 76.6 % (36.0-66.0); RBC 3.23 mil/uL (4.20-5.00); RDW 14.5 % (10.5-14.5); WBC 6.4 thou/uL (4.0-11.0)
[2021-02-26 06:16] LABS: ALBUMIN 2.5 g/dL (3.4-5.0); CALCIUM 8.7 mg/dL (8.5-10.1); CREATININE 0.7 mg/dL (0.6-1.0); MAGNESIUM 1.6 mg/dL (1.8-2.4); PHOSPHORUS 3.9 mg/dL (2.5-4.9); POTASSIUM 5.1 mmol/L (3.5-5.1); TOTAL BILIRUBIN 0.3 mg/dL (0.2-1.0); TOTAL PROTEIN 5.7 g/dL (6.4-8.2)
--- NOTE | 2021-02-26 07:23 | NUR ---
Pt making slow progress toward goals as evidenced by FiO2 titrated down to 70% and peep titrated down to 12. Pt still desaturates when turned or ROM done. Pt remains sedated to RAAS score of -3 for vent management.
[2021-02-26 11:31] LABS: BE(vivo) 0.9 mmol/L (-2 to +3); HCO3 28.1 mmol/L (22.0-26.0); PCO2 57.8 mmHg (35.0-45.0); sO2 79.2 % (92.0-98.0)
[2021-02-26 11:32] LABS: PO2 48.2 mmHg (80.0-100.0); pH 7.305 (7.360-7.450)
--- NOTE | 2021-02-26 11:41 | NUR ---
Chart review. Discussed during unit rounds and los with the hospitalist. Out of covid isolation. Vent and nutritional support. FIO2 70%, peep 12 and TPN. Noted her eyes open this am during rounds. Her mom has been updated by bedside nurses. Will cont following as needed for dc needs.
[2021-02-26 15:16] LABS: BE(vivo) -0.3 mmol/L (-2 to +3); HCO3 27.5 mmol/L (22.0-26.0); PO2 106.8 mmHg (80.0-100.0)
[2021-02-26 15:19] LABS: pH 7.265 (7.360-7.450)
--- NOTE | 2021-02-26 15:28 | NUR ---
PATIENT'S TWO OLDEST SONS CAME TO VISIT THE PATIENT TODAY WELL THE DAUGHTER. THE OF THE SECOND OLDEST SON ALSO VISITED. BOTH OF THE PATIENT'S SON'S EXPRESSED TO THIS RN THAT THEY WANTED TO BE THE TWO CONTACTS FOR THE PATIENT. THEY WERE TOLD THAT THE NURSE PLASTIC MOULD MAKER WOULD BE NOTIFIED ABOUT THIS AND THIS RN HAS RECEIVED FURTHER INFORMATION FROM THE NURSE PLASTIC MOULD MAKER REGARDING THE SITUATION. ALEJANDRO FROM CASE MANAGEMENT INFORMED THIS RN THAT PRIOR TO INTUBATION, THE PATIENT WAS ALERT AND ORIENTED ENOUGH TO EXPRESS THAT SHE WANTED HER MOTHER, DANETTE, TO BE THE MAIN CONTACT. WILL NOTIFY THE OLDEST SON MICHELLE REGARDING THIS INFORMATION.
[2021-02-27] VITALS (25 sets, daily range): BP systolic 96–191; BP diastolic 49–97
[2021-02-27 03:59] LABS: BE(vivo) 4.6 mmol/L (-2 to +3); HCO3 31.6 mmol/L (22.0-26.0); PCO2 61.1 mmHg (35.0-45.0); PO2 65.9 mmHg (80.0-100.0); pH 7.332 (7.360-7.450); sO2 91.2 % (92.0-98.0)
[2021-02-27 06:17] LABS: ABSOLUTE NEUTROPHILS 6.8 thou/uL (1.4-8.2); BASOPHILS 0.4 % (0.0-2.0); EOSINOPHILS 2.4 % (0.0-3.0); HEMATOCRIT 28.5 % (37.0-47.0); HEMOGLOBIN 9.2 gm/dL (12.0-15.0); LYMPHOCYTES 17.9 % (24.0-44.0); MCH 28.8 pg (26.0-34.0); MCHC 32.3 g/dL (28.0-37.0); MCV 88.9 fL (80.0-100.0); MONOCYTES 5.2 % (1.0-8.0); PLATELET COUNT 185 thou/uL (150-400); POLYS 74.1 % (36.0-66.0); RDW 14.7 % (10.5-14.5); WBC 9.2 thou/uL (4.0-11.0)
[2021-02-27 06:32] LABS: ALBUMIN 2.5 g/dL (3.4-5.0); CALCIUM 8.8 mg/dL (8.5-10.1); CREATININE 0.7 mg/dL (0.6-1.0); MAGNESIUM 1.6 mg/dL (1.8-2.4); PHOSPHORUS 3.4 mg/dL (2.5-4.9); POTASSIUM 4.4 mmol/L (3.5-5.1); TOTAL BILIRUBIN 0.3 mg/dL (0.2-1.0); TOTAL PROTEIN 5.6 g/dL (6.4-8.2)
--- NOTE | 2021-02-27 09:27 | NUR ---
UPDATED DR. SHERIDAN ON PATIENT STATUS. PATIENT TACHYCARDIC, TACHYPENIC, HYPERTENSIVE, RESLTESS DESPITE SEDATION. PATIENT ON PRECEDEX AT MAX DOSE, DILUIDID AT MAX DOSE AND VERSED AT MAX DOSE, UNABLE TO TOLERATE PROPOFOL DUE TO REACTION. WILL ULITIZE PRN FENTANYL AND VERSED IVP TO LIGHTLY SEDATE PT IN ORDER TO TOLERATE VENT. NEW ORDERS FOR CARDEVILOL AND SEROQUEL SCHEDULED. AT THIS MOMENT PATIENT SLEEPING WITH EYES CLOSED AND VITAL SIGNS WITH IN MORE NORMAL LIMITS.
--- NOTE | 2021-02-27 10:25 | NUR ---
SPOKE WITH MOTHER DANETTE AND GAVE UPDATES ON PATIENT STATUS. ALL QUESTIONS ANSWERED. STATES SHE WILL BE HERE THIS AFTERNOON TO SIT WITH HER FOR A FEW MINUTES.
--- NOTE | 2021-02-27 12:00 | NUR ---
PATIENT FIO2 DECREASED TO 85% - MAINTAING SATS MID 90'S
--- NOTE | 2021-02-27 16:18 | NUR ---
PT'S OLDEST SON MICHELLE CALLED STATING THAT HE NEEDED THE PT'S PHONE DUE TO A PERSONAL SITUATION, RN VERIFIED THIS BY CALLING THE MOTHER OF THE PATIENT, AND IT WAS VERIFIED AND OKAY'D PT'S OLDEST SON STATED THAT A PERSON BY THE NAME OF YOSSI YI, ONE OF PT'S SON, WILL COME AND SOLAR ENERGY SYSTEM INSTALLER HELPER THE PHONE. THIS RN COMMUNICATED THIS TO THE PRIMARY RN.
[2021-02-28] VITALS (35 sets, daily range): BP systolic 96–166; BP diastolic 48–98
[2021-02-28 05:03] LABS: HEMATOCRIT 27.2 % (37.0-47.0); HEMOGLOBIN 8.9 gm/dL (12.0-15.0); MCH 29.4 pg (26.0-34.0); MCHC 32.9 g/dL (28.0-37.0); MCV 89.1 fL (80.0-100.0); RBC 3.05 mil/uL (4.20-5.00); RDW 14.6 % (10.5-14.5); WBC 7.2 thou/uL (4.0-11.0)
[2021-02-28 05:04] LABS: CALCIUM 8.9 mg/dL (8.5-10.1); CREATININE 0.7 mg/dL (0.6-1.0); POTASSIUM 4.5 mmol/L (3.5-5.1)
--- NOTE | 2021-02-28 10:44 | NUR ---
PATIENT'S MOTHER, DANETTE CALLED FROM [phone]. SHE WAS UPDATED ON THE PATIEN'T CONDITION AND PLAN OF CARE
--- NOTE | 2021-02-28 18:47 | NUR ---
PATIENT IS NOT PROGRESSING TOWARDS PLAN OF CARE EVIDENCED BY CONTINUED DEPENDENCE ON VENTILATOR FOR HIGH OXYGEN DEMAND.
[2021-03-01] VITALS (41 sets, daily range): BP systolic 99–218; BP diastolic 43–102
[2021-03-01 04:51] LABS: BE(vivo) 5.2 mmol/L (-2 to +3); HCO3 32.2 mmol/L (22.0-26.0); PCO2 60.7 mmHg (35.0-45.0); PO2 69.3 mmHg (80.0-100.0); pH 7.342 (7.360-7.450); sO2 92.5 % (92.0-98.0)
[2021-03-01 06:09] LABS: ABSOLUTE NEUTROPHILS 5.9 thou/uL (1.4-8.2); BASOPHILS 0.2 % (0.0-2.0); HEMATOCRIT 27.9 % (37.0-47.0); LYMPHOCYTES 10.5 % (24.0-44.0); MCH 28.6 pg (26.0-34.0); MCHC 32.2 g/dL (28.0-37.0); MCV 88.8 fL (80.0-100.0); MONOCYTES 4.9 % (1.0-8.0); PLATELET COUNT 166 thou/uL (150-400); POLYS 82.4 % (36.0-66.0); RBC 3.15 mil/uL (4.20-5.00); RDW 14.5 % (10.5-14.5); WBC 7.2 thou/uL (4.0-11.0)
[2021-03-01 06:38] LABS: ALBUMIN 2.5 g/dL (3.4-5.0); CALCIUM 9.1 mg/dL (8.5-10.1); CREATININE 0.7 mg/dL (0.6-1.0); MAGNESIUM 1.7 mg/dL (1.8-2.4); PHOSPHORUS 3.6 mg/dL (2.6-4.7); POTASSIUM 4.9 mmol/L (3.5-5.1); TOTAL BILIRUBIN 0.3 mg/dL (0.2-1.0)
--- NOTE | 2021-03-01 16:27 | NUR ---
PT MOTHER (DANETTE) AND FRIEND (SERVANDO) HAVE STOPPED BY TO SEE PATIENT TODAY. PT MOTHER TOOK POSSESSION OF PT CELL PHONE TODAY. PT FIO2 HAS TO 75% AND PEEP FROM 14 TO 12 WITH GOOD RESPONSE MAINTAINING OXYGENATION 92-93%. ATTEMPTED TO DECREASE TO 70% FIO2 HOWEVER, PT COULD NOT MAINTAIN SAT ABOVE 88-89%. WILL CONTINUE TO TRY AND TITRATE PEEP AND FIO2. PT DILAUDID HAS ALSO BEEN TITRATED DOWN WITH GOOD RESPONSE WELL. GOOD RESPONSE TO LASIX, PT RESTING COMFORTABLY WITH NSR HR IN 80'S AND NORMAL B/P READINGS. WILL CONTINUE TO FOLLOW POC.
[2021-03-02] VITALS (26 sets, daily range): BP systolic 83–172; BP diastolic 46–94
[2021-03-02 03:54] LABS: ALBUMIN 2.8 g/dL (3.4-5.0); CALCIUM 8.8 mg/dL (8.5-10.1); CREATININE 0.6 mg/dL (0.6-1.0); POTASSIUM 4.4 mmol/L (3.5-5.1); TOTAL BILIRUBIN 0.4 mg/dL (0.2-1.0); TOTAL PROTEIN 6.3 g/dL (6.4-8.2)
[2021-03-02 04:32] LABS: ABSOLUTE NEUTROPHILS 6.3 thou/uL (1.4-8.2); BASOPHILS 0.1 % (0.0-2.0); EOSINOPHILS 2.2 % (0.0-3.0); HEMATOCRIT 27.5 % (37.0-47.0); HEMOGLOBIN 9.1 gm/dL (12.0-15.0); LYMPHOCYTES 14.1 % (24.0-44.0); MCH 29.3 pg (26.0-34.0); MCV 88.8 fL (80.0-100.0); PLATELET COUNT 184 thou/uL (150-400); POLYS 76.6 % (36.0-66.0); RBC 3.09 mil/uL (4.20-5.00); RDW 14.6 % (10.5-14.5); WBC 8.2 thou/uL (4.0-11.0)
[2021-03-02 05:13] LABS: PCO2 54.1 mmHg (35.0-45.0); PO2 60.8 mmHg (80.0-100.0); pH 7.376 (7.360-7.450); sO2 90.3 % (92.0-98.0)
--- NOTE | 2021-03-02 14:12 | NUR ---
Cont.to require vent, TPN. Out of isolation for COVID. desat with movement. Changes in BP when at rest or with activity while in bed. No anticipated dc over the weekend. Her mom and some children have been visiting.
--- NOTE | 2021-03-02 16:38 | NUR ---
ASSESSMENT CHARTED. PT SEDATED. PT'S MOM AT THE BEDSIDE. UPDATED ON PT'S PLAN OF CARE.
[2021-03-03] VITALS (22 sets, daily range): BP systolic 110–139; BP diastolic 69–81
[2021-03-03 05:23] LABS: HEMATOCRIT 26.5 % (37.0-47.0); HEMOGLOBIN 8.4 gm/dL (12.0-15.0); MCH 28.4 pg (26.0-34.0); MCHC 31.6 g/dL (28.0-37.0); MCV 89.8 fL (80.0-100.0); RBC 2.95 mil/uL (4.20-5.00); RDW 15.1 % (10.5-14.5); WBC 6.9 thou/uL (4.0-11.0)
[2021-03-03 05:37] LABS: CALCIUM 9.1 mg/dL (8.5-10.1); CREATININE 0.7 mg/dL (0.6-1.0); POTASSIUM 4.6 mmol/L (3.5-5.1)
--- NOTE | 2021-03-03 17:05 | NUR ---
ASSUMED CARE OF THE PATIENT 0600. PATIENT IS ON THE VENT AND HER SETTINGS WERE- PC 35/30/.70 +12. SHE HAS THICK BROWNISH COLORED SECRETIONS THAT I HAVE BEEN ABLE TO MANAGE THROUGHOUT THE DAY. I HAVE BEEN ABLE TO TITRATE HER FIO2 TO 60% TODAY. SHE IS MAINTAINING A SATURATION OF 92% AND COMFORTABLE ON THOSE SETTINGS. SHE WILL HAVE A CXR IN THE AM.
--- NOTE | 2021-03-03 19:27 | NUR ---
ASSUMED CARE OF PATIENT AT 1330. STABLE THROUGH OUT SHIFT. LIGHTLY SEDATED FOR VENTILATOR MANAGEMENT. MOTHER AND SON AT BEDSIDE THIS AFTERNOON. ALL QUESTIONS ANSWERED. WILL CONTINUE TO FOLLOW POC.
[2021-03-04] VITALS (29 sets, daily range): BP systolic 85–204; BP diastolic 43–106
[2021-03-04 04:57] LABS: HEMATOCRIT 27.4 % (37.0-47.0); MCH 29.6 pg (26.0-34.0); MCV 89.7 fL (80.0-100.0); RBC 3.05 mil/uL (4.20-5.00); RDW 14.7 % (10.5-14.5); WBC 7.8 thou/uL (4.0-11.0)
[2021-03-04 05:15] LABS: CALCIUM 9.1 mg/dL (8.5-10.1); CREATININE 0.7 mg/dL (0.6-1.0); PHOSPHORUS 4.6 mg/dL (2.6-4.7); POTASSIUM 4.8 mmol/L (3.5-5.1)
[2021-03-04 08:27] LABS: BE(vivo) 3.5 mmol/L (-2 to +3); HCO3 31.4 mmol/L (22.0-26.0); PO2 78.2 mmHg (80.0-100.0); sO2 93.6 % (92.0-98.0)
[2021-03-04 08:29] LABS: PCO2 68.1 mmHg (35.0-45.0); pH 7.282 (7.360-7.450)
--- NOTE | 2021-03-04 12:12 | NUR ---
PT HAVING BLOOD COME OUT OF HER OG PLACED IN HER STOMACH. HOSPITALIST IS AWARE AND LOVENOX IS ON HOLD. PROTONIX IS ADDED TO THE MEDS.
[2021-03-04 16:54] LABS: URINE BILIRUBIN 1+ (Negative); URINE BLOOD 3+ (Negative); URINE CLARITY CLOUDY; URINE COLOR RED; URINE GLUCOSE-RANDOM* NEGATIVE (Negative); URINE KETONES NEGATIVE (Negative); URINE LEUKOCYTES 3+ (Negative); URINE NITRITE NEGATIVE (Negative); URINE PROTEIN (DIPSTICK) 1+ (Negative); URINE UROBILINOGEN 0.2 E.U./dl (0.2-1.0)
[2021-03-04 16:56] LABS: ICTOTEST (BILI CONFIRMATORY) Negative (Negative)
[2021-03-04 17:51] LABS: RENAL EPITHELIAL CELLS 0-3 Few /LPF (None Seen); SQUAMOUS 0-3 Few /LPF (0-3)
[2021-03-04 17:52] LABS: CASTS None Seen /LPF (None Seen); CRYSTALS None Seen /LPF (None Seen); URINE RBC >20 Many /HPF (NONE SEEN); YEAST Present (None Seen)
[2021-03-05] VITALS (51 sets, daily range): BP systolic 70–184; BP diastolic 35–90
[2021-03-05 04:25] LABS: HCO3 24.8 mmol/L (22.0-26.0); PCO2 46.2 mmHg (35.0-45.0); PO2 60.3 mmHg (80.0-100.0); pH 7.348 (7.360-7.450); sO2 89.8 % (92.0-98.0)
[2021-03-05 05:39] LABS: HEMATOCRIT 29.6 % (37.0-47.0); HEMOGLOBIN 9.3 gm/dL (12.0-15.0); MCH 28.2 pg (26.0-34.0); MCHC 31.5 g/dL (28.0-37.0); MCV 89.3 fL (80.0-100.0); PLATELET COUNT 233 thou/uL (150-400); RBC 3.31 mil/uL (4.20-5.00); WBC 14.6 thou/uL (4.0-11.0)
[2021-03-05 06:02] LABS: ALBUMIN 2.7 g/dL (3.4-5.0); CALCIUM 8.5 mg/dL (8.5-10.1); CREATININE 1.4 mg/dL (0.6-1.0); POTASSIUM 4.1 mmol/L (3.5-5.1); TOTAL BILIRUBIN 0.6 mg/dL (0.2-1.0)
[2021-03-05 09:06] LABS: ABSOLUTE NEUTROPHILS 11.5 thou/uL (1.4-8.2); METAMYELOCYTES 2 %
[2021-03-05 09:07] LABS: ANISOCYTOSIS 1+
--- NOTE | 2021-03-05 09:49 | NUR ---
PATIENT'S MOTHER, DANETTE, CALLED FROM [phone] AND SHE WAS UPDATED AND EDUCATED ON THE PATIENT'S CONDITION AND PLAN OF CARE.
--- NOTE | 2021-03-05 14:27 | NUR ---
Per MD review in AM LOS meeting, no changes in plans of care as vent setting remain to high for transition to trach at this time. CM will continue to follow for discharge needs once medically more stable.
[2021-03-05 19:54] LABS: URINE BILIRUBIN NEGATIVE (Negative); URINE BLOOD 3+ (Negative); URINE COLOR YELLOW; URINE GLUCOSE-RANDOM* NEGATIVE (Negative); URINE KETONES NEGATIVE (Negative); URINE NITRITE-REFLEX NEGATIVE (Negative); URINE PROTEIN (DIPSTICK) NEGATIVE (Negative); URINE SPECIFIC GRAVITY <= 1.005 (1.005-1.035); URINE UROBILINOGEN 0.2 E.U./dl (0.2-1.0)
[2021-03-05 20:00] LABS: URINE LEUKOCYTES-REFLEX 2+ (Negative)
[2021-03-05 20:01] LABS: URINE CLARITY SL HAZY
[2021-03-05 20:02] LABS: SQUAMOUS 0-3 Few /LPF (0-3)
[2021-03-05 20:03] LABS: CASTS None Seen /LPF (None Seen); CRYSTALS None Seen /LPF (None Seen)
[2021-03-06] VITALS (65 sets, daily range): BP systolic 110–174; BP diastolic 59–98
[2021-03-06 05:20] LABS: HEMATOCRIT 25.4 % (37.0-47.0); HEMOGLOBIN 8.2 gm/dL (12.0-15.0); MCH 28.5 pg (26.0-34.0); MCHC 32.1 g/dL (28.0-37.0); MCV 88.8 fL (80.0-100.0); RBC 2.86 mil/uL (4.20-5.00); RDW 15.1 % (10.5-14.5); WBC 8.4 thou/uL (4.0-11.0)
[2021-03-06 05:32] LABS: CALCIUM 8.9 mg/dL (8.5-10.1); CREATININE 1.1 mg/dL (0.6-1.0); POTASSIUM 4.5 mmol/L (3.5-5.1)
--- NOTE | 2021-03-06 10:28 | NUR ---
ASSUMED CARE OF PT AT 0700. PT'S MOTHER DANETTE AT BEDSIDE AT 0930, SHE WAS UPDATED ON PT STATUS AT BEDSIDE AT THAT TIME.
--- NOTE | 2021-03-06 12:33 | NUR ---
Per MD review in AM LOS meeting; no changes in plans of care as vent setting did decrease to 70% FIO2 for transition to trach at this time is still being looked at. CM will continue to follow for discharge needs once medically more stable
[2021-03-07] VITALS (29 sets, daily range): BP systolic 94–176; BP diastolic 51–104
[2021-03-07 04:54] LABS: HEMATOCRIT 24.8 % (37.0-47.0); HEMOGLOBIN 8.1 gm/dL (12.0-15.0); MCH 29.1 pg (26.0-34.0); MCHC 32.5 g/dL (28.0-37.0); MCV 89.5 fL (80.0-100.0); RBC 2.77 mil/uL (4.20-5.00); RDW 14.9 % (10.5-14.5); WBC 7.4 thou/uL (4.0-11.0)
[2021-03-07 05:15] LABS: CALCIUM 9.1 mg/dL (8.5-10.1); CREATININE 0.8 mg/dL (0.6-1.0); POTASSIUM 4.3 mmol/L (3.5-5.1)
--- NOTE | 2021-03-07 17:24 | NUR ---
Patient made some progress today. FiO2 60% PEEP down to 10. Dose of albumin and lasix given, which patient responded well to with 1400mL out. Patients mother Arely was at bedside and her daughter came for a moment as well, all of there questions and concerns addressed.
--- NOTE | 2021-03-07 17:56 | NUR ---
FiO2 60% PEEP 8
--- NOTE | 2021-03-07 21:48 | NUR ---
This RN spoke to Jessi, mother at 2145. Discussed patient status and plan of care.
[2021-03-08] VITALS (10 sets, daily range): BP systolic 113–180; BP diastolic 67–96
[2021-03-08 04:58] LABS: CALCIUM 8.9 mg/dL (8.5-10.1); CREATININE 0.7 mg/dL (0.6-1.0); POTASSIUM 3.9 mmol/L (3.5-5.1)
[2021-03-08 05:30] LABS: BE(vivo) 3.7 mmol/L (-2 to +3); HCO3 30.5 mmol/L (22.0-26.0); PO2 58.9 mmHg (80.0-100.0); sO2 87.9 % (92.0-98.0)
[2021-03-08 05:31] LABS: pH 7.324 (7.360-7.450)
[2021-03-08 05:45] LABS: HEMATOCRIT 24.4 % (37.0-47.0); MCH 29.2 pg (26.0-34.0); MCHC 32.7 g/dL (28.0-37.0); MCV 89.2 fL (80.0-100.0); RBC 2.74 mil/uL (4.20-5.00); RDW 15.2 % (10.5-14.5); WBC 6.8 thou/uL (4.0-11.0)
[2021-03-09] VITALS (14 sets, daily range): BP systolic 110–158; BP diastolic 65–102
[2021-03-09 06:33] LABS: HEMATOCRIT 24.4 % (37.0-47.0); HEMOGLOBIN 7.8 gm/dL (12.0-15.0); MCH 28.7 pg (26.0-34.0); MCHC 31.9 g/dL (28.0-37.0); MCV 89.9 fL (80.0-100.0); RBC 2.71 mil/uL (4.20-5.00); RDW 15.3 % (10.5-14.5)
[2021-03-09 06:45] LABS: CALCIUM 8.8 mg/dL (8.5-10.1); CREATININE 0.6 mg/dL (0.6-1.0); POTASSIUM 3.9 mmol/L (3.5-5.1)
--- NOTE | 2021-03-09 14:34 | NUR ---
Chart review. Discussed during los with the hospitalist and during unit rounds. Vent, nutritional support. Out of COVID isolation. Spoke with her mom janie, happy that can visit her now and she started opening her eyes now per janie. No anticipated weekend dc. Will cont following as needed for dc needs.
[2021-03-10] VITALS (24 sets, daily range): BP systolic 101–191; BP diastolic 55–118
[2021-03-10 07:50] LABS: HEMATOCRIT 25.8 % (37.0-47.0); HEMOGLOBIN 8.1 gm/dL (12.0-15.0); MCH 28.3 pg (26.0-34.0); MCHC 31.5 g/dL (28.0-37.0); RBC 2.86 mil/uL (4.20-5.00); RDW 15.1 % (10.5-14.5); WBC 7.2 thou/uL (4.0-11.0)
[2021-03-10 07:56] LABS: CALCIUM 8.6 mg/dL (8.5-10.1); CREATININE 0.6 mg/dL (0.6-1.0); POTASSIUM 4.3 mmol/L (3.5-5.1)
[2021-03-11] VITALS (24 sets, daily range): BP systolic 80–150; BP diastolic 44–78
[2021-03-11 05:52] LABS: CALCIUM 8.2 mg/dL (8.5-10.1); CREATININE 0.6 mg/dL (0.6-1.0); POTASSIUM 3.8 mmol/L (3.5-5.1)
[2021-03-11 10:50] LABS: ABSOLUTE NEUTROPHILS 7.5 thou/uL (1.4-8.2); BASOPHILS 0.2 % (0.0-2.0); EOSINOPHILS 2.5 % (0.0-3.0); HEMOGLOBIN 7.7 gm/dL (12.0-15.0); MCH 28.6 pg (26.0-34.0); MCHC 31.9 g/dL (28.0-37.0); MCV 89.4 fL (80.0-100.0); MONOCYTES 4.4 % (1.0-8.0); PLATELET COUNT 212 thou/uL (150-400); POLYS 82.9 % (36.0-66.0); RBC 2.68 mil/uL (4.20-5.00); RDW 15.4 % (10.5-14.5); WBC 9.1 thou/uL (4.0-11.0)
[2021-03-11 11:02] LABS: ALBUMIN 2.3 g/dL (3.4-5.0); DIRECT BILIRUBIN 0.1 mg/dL (<0.1-0.2); TOTAL BILIRUBIN 0.3 mg/dL (0.2-1.0); TOTAL PROTEIN 5.5 g/dL (6.4-8.2)
[2021-03-12] VITALS (12 sets, daily range): BP systolic 119–155; BP diastolic 73–93
[2021-03-12 05:25] LABS: HEMOGLOBIN 7.4 gm/dL (12.0-15.0); MCH 28.8 pg (26.0-34.0); MCHC 32.1 g/dL (28.0-37.0); MCV 89.5 fL (80.0-100.0); RBC 2.57 mil/uL (4.20-5.00); RDW 15.6 % (10.5-14.5); WBC 7.9 thou/uL (4.0-11.0)
[2021-03-12 05:38] LABS: ALBUMIN 2.3 g/dL (3.4-5.0); CALCIUM 8.1 mg/dL (8.5-10.1); CREATININE 0.5 mg/dL (0.6-1.0); MAGNESIUM 1.5 mg/dL (1.8-2.4); PHOSPHORUS 4.1 mg/dL (2.5-4.9); POTASSIUM 3.9 mmol/L (3.5-5.1); TOTAL BILIRUBIN 0.3 mg/dL (0.2-1.0); TOTAL PROTEIN 5.5 g/dL (6.4-8.2)
[2021-03-12 08:55] LABS: BE(vivo) 2.8 mmol/L (-2 to +3); HCO3 28.7 mmol/L (22.0-26.0); PCO2 51.4 mmHg (35.0-45.0); PO2 65.3 mmHg (80.0-100.0); pH 7.365 (7.360-7.450); sO2 91.9 % (92.0-98.0)
[2021-03-13] VITALS (12 sets, daily range): BP systolic 116–167; BP diastolic 67–97
[2021-03-13 05:21] LABS: BE(vivo) 7.4 mmol/L (-2 to +3); HCO3 33.9 mmol/L (22.0-26.0); PCO2 60.8 mmHg (35.0-45.0); pH 7.364 (7.360-7.450); sO2 95.8 % (92.0-98.0)
[2021-03-13 07:44] LABS: HEMATOCRIT 24.7 % (37.0-47.0); HEMOGLOBIN 7.7 gm/dL (12.0-15.0); MCHC 31.2 g/dL (28.0-37.0); MCV 89.8 fL (80.0-100.0); RBC 2.75 mil/uL (4.20-5.00); RDW 15.6 % (10.5-14.5); WBC 7.5 thou/uL (4.0-11.0)
[2021-03-13 07:53] LABS: CREATININE 0.5 mg/dL (0.6-1.0); POTASSIUM 4.1 mmol/L (3.5-5.1)
[2021-03-13 08:00] LABS: CALCIUM 8.4 mg/dL (8.5-10.1)
--- NOTE | 2021-03-13 10:00 | NUR ---
LATE ENTRY NOTE: PT'S SON SIGNED CONSENT FOR SURGERY AND BLOOD PRODUCT TRANSFUSION ON 03/12 IN PRESENCE OF THIS RN WITH MOTHER PRESENT AT THAT TIME.
--- NOTE | 2021-03-13 10:02 | NUR ---
PT TAKEN TO OR THIS AM AT 1000 BY OR CREW. MOTHER PRESENT IN ROOM AT TIME PT WAS TRASPORTED.
--- NOTE | 2021-03-13 11:52 | NUR ---
Chart review. Discussed during unit rounds and los with the hospitalist. Tesfaye for trach and peg today. Out of covid isolation. Discuss next level of care for martín, ie [facility]. 1st source to cont following for medicaid needs. Will cont following as needed for dc needs.
--- NOTE | 2021-03-13 14:00 | NUR ---
A #5F DOUBLE LUMEN PICC WAS PLACED PER HOSPITAL POLICY AFTER A BEDSIDE TIMEOUT WAS COMPLETED. THE RIGHT UPPER ARM BRACHIAL VEIN WAS WIDLEY PATIENT. THE LINE WAS TRIMMED TO 46CM AND ADVANCED TO 2CM EXTERNAL. THE LINE WAS SECURED AND RELEASED FOR USE
[2021-03-14] VITALS (24 sets, daily range): BP systolic 106–172; BP diastolic 60–96
--- NOTE | 2021-03-14 07:28 | NUR ---
PT TOLERATED INCREASING TUBE FEEDS OVERNIGHT. RESIDUALS WNL. CALLED HOSPITALIST AND INSULIN SCALE WAS CHANGED TO LOW DOSE PATIENTS BLOOD SUGARS HAVE DECREASED. VITAL SIGNS STABLE. PROGRESSING TOWARDS PLAN OF CARE. WILL CONTINUE TO MONITOR.
[2021-03-14 08:56] LABS: BE(vivo) 2.8 mmol/L (-2 to +3); HCO3 27.7 mmol/L (22.0-26.0); PCO2 44.3 mmHg (35.0-45.0); PO2 65.6 mmHg (80.0-100.0); pH 7.414 (7.360-7.450); sO2 93.1 % (92.0-98.0)
--- NOTE | 2021-03-14 16:42 | NUR ---
patient tachycardic, tachypenic, and hypertensive with repositioning while attempting to take wound pictures. will attempt to take again when patient is more hemodynamically stable.
--- NOTE | 2021-03-14 16:57 | NUR ---
MOTHER DANETTE AT BEDSIDE. ALL QUESTIONED ANSWERED THIS MORNING DURING PHONE CALL WITH MOTHER. DENIES ANY FURTHER QUESTIONS OR CONCERNS.
[2021-03-15] VITALS (24 sets, daily range): BP systolic 108–158; BP diastolic 60–105
--- NOTE | 2021-03-15 15:16 | NUR ---
ON THE VENT PER TRACH, LIGHTLY SEDATED AND AWAKENS AND NODS TO Y/N QNS AND MOUTH WORDS TO MAKE NEEDS KNOWN. VITALS STABLE. TOLERATING TUBEFEEDING. NO CONCERNS NOTED. FAMILY VISITED EARLIER TODAY AND WERE UPDATED.
[2021-03-16] VITALS (24 sets, daily range): BP systolic 120–174; BP diastolic 68–95
[2021-03-16 09:18] LABS: BASOPHILS 0.6 % (0.0-2.0); EOSINOPHILS 1.1 % (0.0-3.0); HEMATOCRIT 25.4 % (37.0-47.0); HEMOGLOBIN 7.8 gm/dL (12.0-15.0); LYMPHOCYTES 12.1 % (24.0-44.0); MCH 27.2 pg (26.0-34.0); MCHC 30.5 g/dL (28.0-37.0); PLATELET COUNT 264 thou/uL (150-400); POLYS 81.2 % (36.0-66.0); RBC 2.86 mil/uL (4.20-5.00); RDW 15.6 % (10.5-14.5); WBC 12.3 thou/uL (4.0-11.0)
[2021-03-16 09:19] LABS: BE(vivo) 12.5 mmol/L (-2 to +3); HCO3 40.1 mmol/L (22.0-26.0); PCO2 71.7 mmHg (35.0-45.0); PO2 42.7 mmHg (80.0-100.0); pH 7.366 (7.360-7.450); sO2 74.5 % (92.0-98.0)
[2021-03-17] VITALS (22 sets, daily range): BP systolic 124–177; BP diastolic 69–90
[2021-03-17 10:50] LABS: BE(vivo) 12.7 mmol/L (-2 to +3); HCO3 37.8 mmol/L (22.0-26.0); PO2 72.3 mmHg (80.0-100.0); pH 7.471 (7.360-7.450); sO2 95.1 % (92.0-98.0)
--- NOTE | 2021-03-17 15:15 | NUR ---
PT RESTING COMFORTABLY. Q2T. PT WITH TEMP MAX OF 101.1 TYLENOL AND NON PHARMACOLIGICAL MEASURES TAKEN. PT HAS POLYUREA, FMS IN PLACE WITH MODERATE LIGHT BROWN LIQUID STOOL, TUBE FEEDING AT 30ML/HR AND RESIDUALS UNDER 10ML. VENT SETTINGS TITRATED BY RT. WOUND CARE COMPLETED PRESCRIBED. PT AND FAMILY HAVE BEEN THOUROUGHLY UPDATED AND EDUCATED ON PT CONDITION AND POC. PT SLOWLY PROGRESSING TOWARDS POC.
[2021-03-18] VITALS (28 sets, daily range): BP systolic 136–179; BP diastolic 78–100
--- NOTE | 2021-03-18 05:55 | NUR ---
PT CONTINUES TO HAVE TEMPS AND INCREASED RESP RATE. CALLED FOR A CHEST XRAY ORDER FOR THIS AM.
--- NOTE | 2021-03-18 08:01 | NUR ---
PT FOUND AWAKE AND FOLLOWS COMMANDS, FOUND INFUSING PRECEDEX AT 2 MCG/KG/HR. PT MOVING ALL EXTREMITIES AND FOLLOWING COMMAND.
[2021-03-19] VITALS (41 sets, daily range): BP systolic 119–173; BP diastolic 65–98
[2021-03-19 04:32] LABS: HEMATOCRIT 22.5 % (37.0-47.0); HEMOGLOBIN 7.2 gm/dL (12.0-15.0); MCH 27.7 pg (26.0-34.0); MCHC 31.9 g/dL (28.0-37.0); MCV 86.8 fL (80.0-100.0); RBC 2.6 mil/uL (4.20-5.00); RDW 15.4 % (10.5-14.5); WBC 9.7 thou/uL (4.0-11.0)
[2021-03-19 04:47] LABS: CALCIUM 8.4 mg/dL (8.5-10.1); CREATININE 0.5 mg/dL (0.6-1.0); MAGNESIUM 1.6 mg/dL (1.8-2.4); POTASSIUM 3.6 mmol/L (3.5-5.1)
--- NOTE | 2021-03-19 07:21 | NUR ---
AGITATED AND TACHYPNEIC ALL NIGHT.DR SHERIDAN WAS CALLED AND ORDERED VERSED GTT.
--- NOTE | 2021-03-19 09:28 | NUR ---
Yoni left message with 1st source to visit with martín frequently to get medicaid shine signed.
--- NOTE | 2021-03-19 12:34 | NUR ---
Discussed during los and unit rounds. Cm and 1st source Emi met with Janel at bedside, education on Medicaid. Janel can mouth words. Emi was able to provided education on medicaid shine and the process. Janel was able to sign 2 forms and then wanted to rest. Will cont. following as needed for dc needs. trach with vent support, and nutritional support via peg.
--- NOTE | 2021-03-19 15:28 | NUR ---
DR JONES CALLED AT 1528 REGARDING HIGH RESIDUAL OF 625. ORDER TO HOLD TUBE FEEDING FOR ONE HOUR AND THEN TO RESUME. WILL CONTINUE TO MONITOR.
[2021-03-20] VITALS (46 sets, daily range): BP systolic 118–193; BP diastolic 61–97
--- NOTE | 2021-03-20 06:18 | NUR ---
NO ACUTE EVENTS OVERNIGHT. PT RESTING COMFORTABLY.
[2021-03-21] VITALS (33 sets, daily range): BP systolic 98–205; BP diastolic 60–107
[2021-03-21 06:26] LABS: CALCIUM 8.4 mg/dL (8.5-10.1); CREATININE 0.5 mg/dL (0.6-1.0); POTASSIUM 3.7 mmol/L (3.5-5.1)
[2021-03-21 09:21] LABS: HEMATOCRIT 25.7 % (37.0-47.0); HEMOGLOBIN 7.7 gm/dL (12.0-15.0); MCV 89.8 fL (80.0-100.0); RBC 2.86 mil/uL (4.20-5.00); RDW 16.2 % (10.5-14.5)
[2021-03-22] VITALS (41 sets, daily range): BP systolic 78–148; BP diastolic 38–78
[2021-03-22 05:50] LABS: CALCIUM 8.6 mg/dL (8.5-10.1); CREATININE 0.5 mg/dL (0.6-1.0); POTASSIUM 4.2 mmol/L (3.5-5.1)
--- NOTE | 2021-03-22 14:06 | NUR ---
Chart review. Discussed during los with the hospitalist and during unit rounds. trach with vent support. peg for nutritional support. Spoke with her mom cee via phone call, no concerns or needs voiced, thank you for checking on us, just keep praying above per cee. No anticipated dc over the weekend, will cont following as needed.
--- NOTE | 2021-03-22 15:40 | NUR ---
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
--- NOTE | 2021-03-22 17:06 | NUR ---
THIS PT. DID MOVE BOTH OF HER FEET ON COMMAND BUT DID NOT MOVE HER LEGS.
[2021-03-23] VITALS (91 sets, daily range): BP systolic 71–112; BP diastolic 20–73
[2021-03-23 01:49] LABS: BE(vivo) 13.5 mmol/L (-2 to +3); HCO3 43.3 mmol/L (22.0-26.0); PO2 76.9 mmHg (80.0-100.0); sO2 91.9 % (92.0-98.0)
[2021-03-23 01:50] LABS: PCO2 101.7 mmHg (35.0-45.0); pH 7.247 (7.360-7.450)
--- NOTE | 2021-03-23 05:43 | NUR ---
PT REMAIN ALERT AND ORIENT TIMES THREE, FORGETFUL. SEEMS TO NOD APPRORIATELY MOST TIMES TO YES/NO QUESTIONS. AFEBRILE. SR/PAC'S PER MONITOR. DID HAVE 60-70ML OF YELLOW EMESIS. A STAT KUB WAS ORDERED FOR ABD PAIN INDICATED PER PT. RESULTS PENDING AT THIS TIME. DR. JONES WAS CALLED R/T CRITICAL ABG'S. NO ORDER WAS GIVEN, DR JONES STATES, THERE'S NOTHING ELSE THAT CAN BE DONE. RT JOANNE READJUSTED VENT SETTING DURING THE NIGHT. PT HAS BEEN TACHYPNEIC ALL SHIFT. 34-60'S. ON MED LIQUID STOOL, GUTIERREZ PATENT WITH DK CLAU/SEDIMENT OUTPUT. POOR PROGRESS TOWARDS DC GOALS. WILL CONTINUE TO MONITOR.
--- NOTE | 2021-03-23 08:51 | HC ---
[place] [address] CONSULTATION Name: RICCI DRISCOLL Room #: [facility]- ADM IN M.R.#: [id number] Admission: 02/08/21 Attend Phys: Jimmy Jacobson MD Discharge: Date of : 72 Report #: [id number] THIS REPORT FOR: cc: [facility] - Clinic physician unknown [facility] - Clinic physician unknown Ji Leonard MD ~ DATE OF SERVICE: 03/20/2021 CHIEF COMPLAINT: Sacral gluteal ulceration and facial ulceration. HISTORY OF PRESENT ILLNESS: This is a 50-year-old female patient who was admitted through the Emergency Department on 02/08/2021 with progressive shortness of breath. She required intubation and mechanical ventilation, was found to be positive for COVID-19 with pneumonia, severe respiratory distress and sepsis and respiratory failure. She has required prolonged mechanical ventilation. She has been positioned in the prone position during the worse phase of her illness. She was noted to have a small ulceration on her cheek. She is also noted to have a small gluteal ulceration and I have been asked to see her in this regard. The patient is awake. She does acknowledge that she is in the hospital and recalls that she was working previously and that she is feeling better, but still acknowledges hopefulness to get out of the hospital. She has mild pain, but cannot specify. She has a tracheostomy and is requiring mechanical ventilation. PAST MEDICAL HISTORY: Positive for history of COVID-19 pneumonia, acute kidney injury, COPD, diabetes and acute hypoxemic respiratory failure. She has had a tracheostomy placed. MEDICATIONS: Include Tylenol, ipratropium and albuterol, budesonide, carvedilol, dexamethasone, enoxaparin, erythromycin, fentanyl, furosemide, glucagon, glucose, hydralazine, midazolam, pantoprazole, quetiapine. ALLERGIES: LISTED ARE PROPOFOL. 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 FAMILY HISTORY: Unknown. REVIEW OF SYSTEMS: Not obtainable due to the patient's condition. PHYSICAL EXAMINATION: VITAL SIGNS: The patient's vital signs at this time include temperature 37.2, pulse 94, respiratory rate of 33, blood pressure 185/96. GENERAL: This is a chronically ill-appearing female patient who appears to be awake, in no obvious distress. [address] [address] CONSULTATION Name: RICCI DRISCOLL Room #: 237-P [facility] IN M.R.#: [id number] Admission: 02/08/21 Attend Phys: Jimmy Jacobson MD Discharge: Date of : 72 Report #: [id number] HEENT: Examination of head is normocephalic. The facial structures are stable. She has what appears to be a small pressure ulceration to the right zygomatic arch region. It shows evidence of new epithelialization, some hypopigmentation, no evidence of infection. NECK: Demonstrates tracheostomy. LUNGS: Are coarse. HEART: Regular rhythm without obvious murmur. ABDOMEN: Soft, nontender. Gluteal sacral region demonstrates what appears to be a stage III pressure ulceration to the right gluteal region and almost into the perirectal area, possibly related to a previous rectal tube. It appears to be relatively shallow and superficial and appears to be in stages of healing. NEUROLOGIC: The patient seems to have some spontaneous symmetrical movement. LABORATORY STUDIES: Sodium 143, potassium 3.7, chloride 103, CO2 of 39, BUN 18, creatinine 0.5, glucose 261. White blood cell count 9.7, hemoglobin 7.2. CLINICAL IMPRESSION: 1. Stage III pressure ulceration to the right zygomatic arch region, now with evidence of healing. 2. Stage III pressure ulceration of the right gluteal perirectal region. 3. Acute hypoxemic renal failure requiring mechanical ventilation, status post tracheostomy. 4. History of asthma/chronic obstructive pulmonary disease. 5. Sepsis. 6. Type 2 diabetes mellitus. 7. Acute kidney injury. 8. Hypertension. 9. Moderate protein calorie malnutrition, albumin 2.3. RECOMMENDATIONS: At this point in time, the patient is already on a low air loss mattress. She will need q.2 hour turning and positioning. Recommend Bactroban ointment to the right zygomatic arch region. Recommend moisture barrier cream b.i.d. and p.r.n. to the sacral-gluteal region, q.2 hour turning and positioning. PRAFO boots while in bed for pressure prophylaxis. Continue aggressive medical management, pulmonary toilet. I do appreciate being asked to see her in consultation. <ELECTRONICALLY SIGNED> By: Ji Leonard MD 03/23/21 [id number] Ji Leonard MD /nt
--- NOTE | 2021-03-23 18:13 | NUR ---
PATIENT NOT PROGRESSING TOWARDS THE PLAN OF CARE EVIDENCED BY INCREASED NEED FOR VASOPRESSORS TO MAINTAIN MAP>65 AND SEDATION TO MAINTAIN RR < 30.
[2021-03-24] VITALS (52 sets, daily range): BP systolic 62–125; BP diastolic 32–75
[2021-03-24 05:38] LABS: BE(vivo) 6.5 mmol/L (-2 to +3); HCO3 34.9 mmol/L (22.0-26.0); PO2 101.7 mmHg (80.0-100.0); sO2 96.6 % (92.0-98.0)
[2021-03-24 05:39] LABS: PCO2 77.5 mmHg (35.0-45.0); pH 7.272 (7.360-7.450)
[2021-03-24 06:46] LABS: CALCIUM 6.5 mg/dL (8.5-10.1); CREATININE 1.5 mg/dL (0.6-1.0)
[2021-03-24 08:36] LABS: WBC 4.1 thou/uL (4.0-11.0)
[2021-03-24 08:38] LABS: HEMATOCRIT 28.3 % (37.0-47.0); HEMOGLOBIN 8.6 gm/dL (12.0-15.0); MCH 27.2 pg (26.0-34.0); MCHC 30.3 g/dL (28.0-37.0); MCV 89.5 fL (80.0-100.0); PLATELET COUNT 238 thou/uL (150-400); RBC 3.16 mil/uL (4.20-5.00); RDW 16.6 % (10.5-14.5)
[2021-03-24 08:45] LABS: ALBUMIN 2.3 g/dL (3.4-5.0); CALCIUM 7.6 mg/dL (8.5-10.1); CREATININE 1.7 mg/dL (0.6-1.0); MAGNESIUM 1.7 mg/dL (1.8-2.4); PHOSPHORUS 4.8 mg/dL (2.6-4.7); TOTAL BILIRUBIN 0.8 mg/dL (0.2-1.0); TOTAL PROTEIN 5.1 g/dL (6.4-8.2)
[2021-03-24 08:47] LABS: POTASSIUM 5.2 mmol/L (3.5-5.1)
[2021-03-24 09:03] LABS: ABSOLUTE NEUTROPHILS 1.7 thou/uL (1.4-8.2); ANISOCYTOSIS 1+; METAMYELOCYTES 12 %; MYELOCYTES 3 %; NUCLEATED RBCS 3 /100WBC; PLATELET ESTIMATE NORMAL; PROMYELOCYTES 1 %
--- NOTE | 2021-03-24 16:12 | NUR ---
1130- IN.--VW 1230- IN.--VW 1600- UPDATED EARLIER RE:VERY LOW UOP- RECONSULTED,UPDATED. ORDERS NOTED. RECONSULTED,UPDATED-ORDERS NOTED.PT'S DTR AURA IN EARLIER ~1HR. 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 PT STILL REQUIRING 3 PRESSORS TO KEEP MAP>60mmHG. FIO2 NOW UP TO .90% TO KEEP SATS >/=.92%. ESSENT NO UOP. INITIAL CVP 22. BOLUS STOPPED,LASIX GIVEN, UPDATED.--VW
[2021-03-25] VITALS (45 sets, daily range): BP systolic 86–127; BP diastolic 48–73
[2021-03-25 06:01] LABS: ALBUMIN 1.9 g/dL (3.4-5.0); CALCIUM 7.1 mg/dL (8.5-10.1); CREATININE 2.4 mg/dL (0.6-1.0); PHOSPHORUS 4.7 mg/dL (2.5-4.9); POTASSIUM 5.1 mmol/L (3.5-5.1)
--- NOTE | 2021-03-25 10:16 | NUR ---
50F, PT RECEIVED SEDATED, FOUND INFUSING PRECEDEX .6, LEVO 30MCG/HR, VASO 0.03 UNIT/MIN, SANDI 75MCH/HR, VERSED 8MG/HR, DILUADED 7.5ML/HR, D51/2NS @75 ML/HR. VENTED/TRACHED FIO2 75%,GUTIERREZ W/ DARK URINE. PLAN IS TO ADMINISTRE LASIX. MOUTHCAREDONE, AM CARE DONE, PT ON CLRT AND REPOSTIONED, PEG TO LWS. PT WITH VISTOR AT BEDSIDE.
--- NOTE | 2021-03-25 15:59 | NUR ---
VAT CONSULTED TO PLACE TL PICC DUE TO NUMEROUS MEDS/CVP. PT'S ORDER AND CONSENT VERIFIED. JAMAL BRACHIAL WAS WIDELY PATENT WITH USG. TL POWER PICC TRIMMED TO 45CM INSERTED X1 STICK TO 0CM EXTERNAL WITH 3CG CONFIRMATION OF PLACEMENT. PICC RELEASED FOR IMMEDIATE USE PER PROTOCOL. RENETTA HERNDON WILL DC DL PICC IN [facility]
--- NOTE | 2021-03-25 19:17 | NUR ---
PT GIVEN LASIX 100MG IVP PER ORDER POST LASIX URINE OUTPUT IS SCANT, DISCUSS W/ MD ANDERSON, NO NEW INTERVETIONS AT THIS TIME. PT REMAINS ON 3 PRESSORS TO MAINTAIN A MAP > 60. SEDATED.
--- NOTE | 2021-03-25 19:28 | NUR ---
RT FA PICC DISCONTINUED AND REMOVED, PRESSURE HELD AND NOTED NO BLEEDING. CHANGE LINE TO LT TRIPLE LUME PICC PLACEMENT CONFIRM BY PICC NURSE.
[2021-03-26] VITALS (78 sets, daily range): BP systolic 90–171; BP diastolic 48–94
[2021-03-26 06:06] LABS: HEMATOCRIT 23.2 % (37.0-47.0); MCH 26.7 pg (26.0-34.0); MCHC 30.1 g/dL (28.0-37.0); MCV 88.4 fL (80.0-100.0); RBC 2.63 mil/uL (4.20-5.00); RDW 16.9 % (10.5-14.5); WBC 4.1 thou/uL (4.0-11.0)
[2021-03-26 06:33] LABS: ALBUMIN 1.4 g/dL (3.4-5.0); CREATININE 1.7 mg/dL (0.6-1.0); POTASSIUM 3.5 mmol/L (3.5-5.1); TOTAL BILIRUBIN 0.9 mg/dL (0.2-1.0); TOTAL PROTEIN 3.6 g/dL (6.4-8.2)
[2021-03-26 06:35] LABS: CALCIUM 5.1 mg/dL (8.5-10.1)
--- NOTE | 2021-03-26 08:30 | NUR ---
Patient is not progressing towards plan of care as evidenced by continued need of vent for oxygen support. Patient is also on sepsis protocol and requires gtts to maintain her MAP above 65. Pt is unresponsive. -ve gag/cough relfex
[2021-03-26 08:40] LABS: BE(vivo) -4.5 mmol/L (-2 to +3); HCO3 24.1 mmol/L (22.0-26.0); PCO2 66.8 mmHg (35.0-45.0); PO2 79.3 mmHg (80.0-100.0); pH 7.176 (7.360-7.450); sO2 92.1 % (92.0-98.0)
--- NOTE | 2021-03-26 15:51 | NUR ---
Chart reviewd. Discussed during los with the hospitalist and spoke with pt's nurse this am. Pt continues on trach with vent support. peg for nutritional support. Cm reached out to pulm physician as care team staff had indicated that care team may be wanting family meeting to be arranged. Cm awaiting response. Cm following regarding dc planning.
--- NOTE | 2021-03-26 19:43 | NUR ---
50F HX COVID, PANCX, NEW GUTIERREZ INSERTED, LASIX 80IVP GIVEN, STARTED BICARB DRIP PER ORDER, WAS ABLE TO TOLERATE WEANING OFF SANDI AND VASO AND TITRATED LEVO DOWN TO 15MCG. PT WITH NO BM DESPITE REGLAN, ERTHRO, AND MIRALAX GIVEN. REPORT GIVEN TO INCOMING RN , PT RULED FOR SEPSIS MD SHERIDAN NOTIFIED. PT NOT ON SEPSIS PROTOCOL AND NO NEW INTERVETIONS AT THIS TIME.
[2021-03-26 23:24] LABS: URINE BILIRUBIN NEGATIVE (Negative); URINE BLOOD 3+ (Negative); URINE CLARITY CLOUDY; URINE COLOR YELLOW; URINE GLUCOSE-RANDOM* NEGATIVE (Negative); URINE KETONES NEGATIVE (Negative); URINE NITRITE-REFLEX NEGATIVE (Negative); URINE PROTEIN (DIPSTICK) 2+ (Negative); URINE SPECIFIC GRAVITY 1.015 (1.005-1.035); URINE UROBILINOGEN 0.2 E.U./dl (0.2-1.0)
[2021-03-26 23:26] LABS: URINE LEUKOCYTES-REFLEX 1+ (Negative)
[2021-03-26 23:34] LABS: SQUAMOUS 0-3 Few /LPF (0-3)
[2021-03-26 23:35] LABS: CALCIUM OXALATE 0-3 Few /LPF (None Seen); COARSE GRANULAR CASTS 0-3 Few /LPF (None Seen); FINE GRANULAR CASTS 0-3 Few /LPF (None Seen); MUCUS 0-3 Light strn/LPF (None Seen); URINE WBC-REFLEX 6-15 Few /HPF (0-5); YEAST-REFLEX Present (None Seen)
[2021-03-27] VITALS (79 sets, daily range): BP systolic 105–187; BP diastolic 58–97
[2021-03-27 09:11] LABS: ALBUMIN 2.6 g/dL (3.4-5.0); MAGNESIUM 2.1 mg/dL (1.8-2.4); PHOSPHORUS 5.7 mg/dL (2.6-4.7); POTASSIUM 4.9 mmol/L (3.5-5.1); TOTAL BILIRUBIN 1.1 mg/dL (0.2-1.0); TOTAL PROTEIN 6.2 g/dL (6.4-8.2)
[2021-03-27 09:12] LABS: CALCIUM 7.7 mg/dL (8.5-10.1)
[2021-03-27 09:15] LABS: CREATININE 2.8 mg/dL (0.6-1.0)
--- NOTE | 2021-03-27 11:01 | NUR ---
THIS CENTRAL OFFICE INSTALLER PARTICIPATED IN "FAMILY MEETING" ALONG WITH Isaac CASTRO AND MEDICAL DOCTORS, THERESA. MOTHER OF PATIENT, ALL THREE MALE CHILDREN PRESENT IN PERSON OR BY TELEPHONE. GOOD COMMUNICATION WAS FACILITATED.
--- NOTE | 2021-03-27 13:05 | NUR ---
WOUND CONSULT; AN ASESSMENT WAS COMPLETED. I DID NOT VISULALIZE ANY WOUNDS. THE STAFF IS USING ZGUARD ON THE BUTTOCKS LIKELY FOR PREVENTION. RECCOMMENDATIONS; ADD A LOW AIRLOSS BED PUMP. PLEASE RECONSULT WOUND CARE IF NEEDED. WOUND CARE WILL SIGN OFF.
[2021-03-28] VITALS (30 sets, daily range): BP systolic 90–157; BP diastolic 45–92
[2021-03-28 07:00] LABS: ALBUMIN 2.4 g/dL (3.4-5.0); CALCIUM 7.8 mg/dL (8.5-10.1); CREATININE 2.3 mg/dL (0.6-1.0); PHOSPHORUS 5.6 mg/dL (2.5-4.9); POTASSIUM 4.3 mmol/L (3.5-5.1)
--- NOTE | 2021-03-28 07:26 | NUR ---
ASSUME CARE 1900. PT/VITALS STABLE. NAP NOTED. PT DEEPLY SEDATED. BLINKS SOMETIMES AND OPENS EYES SOMETIMES BUT DOES NOT TRACT. DOES NOT MOVE ANY EXTREMITITES. RESPONDS TO PAIN AND COUGH REFLEX NOTED. GENERALIZD EDEMA/FIRMNESS NOTED ALL OVER. PASSIVE ROM IS BENEFICIAL. ASSESSMENT CHARTED. VEERY POOR PROGRESS TO POC. ADEQUATE URINE OUTPUT NOTED. PLAN IS TO CONTINUE WITH ABX THERAPY/MONITOR AND MANAGE RESP FUNCTION. CASE MANAEMENT ON BOARD FOR DISCHARGE PLANNING. PER CSM NOTED. DISCUSSED DNR STATUS WITH FAMILY, AND FAMILY IS AGREEABLE FOR PT TO BE DNR. WILL CONTINUE TO MONITOR AND FOLLOW WITH POC. NO DISRESS NOTED. SR ON MONITOR/ NO ARRYTHMIA.
[2021-03-28 08:43] LABS: HEMATOCRIT 20.5 % (37.0-47.0); HEMOGLOBIN 6.5 gm/dL (12.0-15.0); PLATELET COUNT 149 thou/uL (150-400)
[2021-03-28 08:44] LABS: MCH 27.4 pg (26.0-34.0); MCHC 31.7 g/dL (28.0-37.0); MCV 86.3 fL (80.0-100.0); RBC 2.37 mil/uL (4.20-5.00); RDW 17.1 % (10.5-14.5)
[2021-03-28 10:19] LABS: BE(vivo) 1.6 mmol/L (-2 to +3); HCO3 25.9 mmol/L (22.0-26.0); PCO2 39.5 mmHg (35.0-45.0); PO2 61.9 mmHg (80.0-100.0); pH 7.435 (7.360-7.450); sO2 92.5 % (92.0-98.0)
[2021-03-28 14:25] LABS: ABSOLUTE NEUTROPHILS 7.7 thou/uL (1.4-8.2); METAMYELOCYTES 1 %; MYELOCYTES 1 %; NUCLEATED RBCS 5 /100WBC
[2021-03-28 14:35] LABS: ANISOCYTOSIS 1+; HYPOCHROMASIA 2+; POIKILOCYTOSIS 1+
--- NOTE | 2021-03-28 16:36 | NUR ---
CARE TEAM INDICATED THAT PT HAD LOW HGB. PT TO RECEIVE [address]PT TO HAVE [address] ABD, HEAD AND CHEST. CM CALLED AND SPOKE WITH PT'S MOTHER THIS AFTERNOON. SHE INDICATED SHE WAS ON HER WAY TO VISIT. CM INFORMED HER OF THE ABOVE. CM FOLLOWING.
[2021-03-29] VITALS (22 sets, daily range): BP systolic 103–181; BP diastolic 59–89
[2021-03-29 04:36] LABS: BE(vivo) 2.6 mmol/L (-2 to +3); HCO3 28.8 mmol/L (22.0-26.0); PCO2 53.7 mmHg (35.0-45.0); PO2 76.5 mmHg (80.0-100.0); pH 7.347 (7.360-7.450); sO2 94.4 % (92.0-98.0)
[2021-03-29 05:36] LABS: HEMATOCRIT 23.6 % (37.0-47.0); HEMOGLOBIN 7.5 gm/dL (12.0-15.0); MCHC 31.6 g/dL (28.0-37.0); MCV 85.5 fL (80.0-100.0); PLATELET COUNT 181 thou/uL (150-400); RBC 2.77 mil/uL (4.20-5.00); WBC 15.8 thou/uL (4.0-11.0)
[2021-03-29 05:46] LABS: ALBUMIN 2.6 g/dL (3.4-5.0); CALCIUM 8.3 mg/dL (8.5-10.1); CREATININE 1.7 mg/dL (0.6-1.0); POTASSIUM 4.2 mmol/L (3.5-5.1); TOTAL BILIRUBIN 0.7 mg/dL (0.2-1.0); TOTAL PROTEIN 6.4 g/dL (6.4-8.2)
--- NOTE | 2021-03-29 06:40 | NUR ---
ASSUME CARE 1910. PT/VITALS STABLE. POOR PROGRESSION TOWARDS POC. NOTED TACHYPNEA WITH SEDATION TURNED OFF. PT GOES UP TO 58-59 BREATHS/MIN WITH NO SEDATION. RESTARTED SEDATION. PT RESTARTED ON PRECEDEX AND TITRATED ACCORDINGLY TO HELP WITH DISTRESS. DILAUDID RESTARTED FOR ABOUT 2 HOURS AND THEN STOPPED, BUT PRECEDEX CONTINUED. VITALS STABLE. 1 UNIT OF PRBC GIVEN/HGB AT 7.5 THIS AM. ASSESSMENT CHARTED. PROGRESSING VERY POORLY WITH CARE. PLAN IS FOR CSM/MD/FAMILY TO DISCUSS COMFORT CARE TODAY. WILL CONTINUE TO MONITOR AND FOLLOW WITH POC
--- NOTE | 2021-03-29 08:41 | NUR ---
ASSUMED CARE OF PT AT 0715. PT'S FOUR SONS REQUESTING TO SEE PT. OLDEST SON, MICHELLE, VERBALIZED THAT HE SPOKE TO DR DIAZ LAST NIGHT AND THAT GIVEN THAT WAS INFORMED THAT THE COULD ALL SEE PT GIVEN HER ACUITY AND RECENT CT SCAN RESULTS. SON ALSO VERBALIZED THAT HE DROVE FROM [place] TO SEE PT AND IT WAS URGENT THAT THEY SAW HER. WHILE IN ROOM PT'S SONS BEGAN TO ARGUE AMONGST EACH OTHER IN A LOUD TONE. SECURITY WAS CALLED AT THAT TIME AND ONE OF THE SON WAS ESCORTED OFF UNIT. DR SHERIDAN AT BEDSIDE TO SPEAK TO SON MICHELLE AT 0800. WILL CONTINUE TO MONITOR.
[2021-03-29 10:36] LABS: ABSOLUTE NEUTROPHILS 13.6 thou/uL (1.4-8.2); ANISOCYTOSIS 1+; MYELOCYTES 2 %; NUCLEATED RBCS 2 /100WBC
--- NOTE | 2021-03-29 15:33 | NUR ---
237 NM 50 yr old female. No DPOA. Mom Jessi and Son Eveline have been main contacts and decision makers up until this time. Family Meeting Friday they agreed to make pt a DNR but wanted to continue with current cares. Pt's peg tube became dislodged, and her stomach wall has fallen away. Large volume loculated fluid collection on CT scan. Pt critically ill. PEEP 14, FiO2 60%. Hgb 6.5. Dr. Veliz indicated that surgery is the only option for the patient's PEG tube issue. He documented that he discussed high risk of mortality with family. They had indicated that they wanted to pursue comfort care. Son is out of town, he arrived back in town this am. Dr. Lilly met with family this am and Son Eveline wants everything done. It was determined that oldest son eveline would be legally designated decision maker in the case. security had been called a second time for family fighting on hospital grounds. nurse inidcated that afternoon that son eveline and mother are now wanting pt to be made comfort care. Yoni spoke with Dr. Lilly and Thompson. It was indicated that eveline would be the one to formally dictate care decisions but that at this moment pt's son eveline and mother are in agreement of making pt comfort care. Yoni called unit and nurse keven was on the phone with dr. lilly. cm following regarding dc planning.
[2021-03-30] VITALS: BP 166/83
[2021-03-30 04:00] VITALS: BP 167/75
--- NOTE | 2021-03-30 04:56 | NUR ---
ASSUMED CARE OF PATIENT AT 1900. PATIENT REMAINSON DILAUDID GTT. MINIMALLY RESPONSIVE. COMFORT CARE MEASURES IN PLACE. NO CONTACT WITH FAMILY TONIGHT. NO S/S OF DISTRESS.
[2021-03-30 08:00] VITALS: BP 173/80
--- NOTE | 2021-03-30 11:40 | NUR ---
PATIENT'S MOTHER, DANETTE, INFORMED THIS RN THAT SHE WANTED TO CONTINUE CARE IT IS RIGHT NOW. SHE SAID SHE DID NOT WANT THE PATIENT TAKEN OFF THE VENTILATOR.
[2021-03-30 12:00] VITALS: BP 112/68
[2021-03-30 16:00] VITALS: BP 120/63
--- NOTE | 2021-03-30 18:29 | NUR ---
PATIENT NOT PROGRESSING TOWARDS THE PLAN OF CARE EVIDENCED BY COMFORT CARE ORDERS AND INABILITY TO WEAN OFF VENTILATOR.
[2021-03-30 20:00] VITALS: BP 103/52
[2021-03-31] VITALS: BP 107/48
[2021-03-31 04:00] VITALS: BP 111/62
--- NOTE | 2021-03-31 04:50 | NUR ---
PATIENTS CARES WHERE ASSUMED AT SHIFT CHANGE. PATIENT WAS ASSESSED AND MEDS WHERE PASSED. THERE HAS BEEN NO CHANGE IS HER CONDITION OR THE COMFORT CARE STATUS. ROUNDING WAS DONE. THE BED IS IN A LOW AND LOCKED POSITION
[2021-03-31 08:00] VITALS: BP 115/58
[2021-03-31 12:00] VITALS: BP 129/62
[2021-03-31 16:00] VITALS: BP 119/61
--- NOTE | 2021-03-31 18:37 | NUR ---
PT ON COMFORT CARE. PT'S MOTHER CONCERNED ABOUT PT NOT BEING ON ANY FLUIDS OR NUTRITION. DR. WILSON NOTIFIED ABOUT PT'S MOTHERS CONCERN. NO NEW ORDERS AT THIS TIME.
[2021-03-31 20:00] VITALS: BP 113/57
[2021-04-01] VITALS (9 sets, daily range): BP systolic 109–139; BP diastolic 61–84
--- NOTE | 2021-04-01 03:59 | NUR ---
PT REMAINS NONVERBAL ON VENTILATOR. FOLLOWS SOME COMMANDS IE WILL SQUEEZE NS HANDS. OPENS EYES SPONTANEOUSLY. SATS 98% ON CURRENT VENTILATOR SETTIGS MMO182%, PEEP 14 , RR 28, MTV 450. LOW GRADE TEMPS NOTED. DILAUDID REMAINS AT 7.5 . PT RESTING QUIETLY. VSS. ST ON MONITOR LOW 100S. O CHANGES IN ASSESSMENT THIS AM.
--- NOTE | 2021-04-01 06:40 | NUR ---
NO CHANGES IN ASSESSMENT. VSS 98.[address] ON MONITOR. DILAUDID AT 7.5 . CONTINUING COMFORT MEASURES ORDERED.
--- NOTE | 2021-04-01 09:00 | NUR ---
MOTHER PRESENT IN AM. PT EYES ARE OPEN AND SHE IS TRACKING ANYONE IN THE ROOM. MOTHER INSISTS THAT SHE NEEDS TO HAVE IV FLUID INFUSING AND SHOULD BE FED. "I'M NOT GOING TO HAVE MY DAUGHTER STARVING LIKE THAT. WHAT IS HER BLOOD SUGAR?" BLOOD SUGAR OBTAINED PER REQUEST. DR. WILSON HAS RECENTLY INFORMED MARYANN ALLEN, ICU CHG RN THAT HE WOULD BE IN AND WOULD SPEAK WITH THE MOTHER. DR. WILSON SPEAKING WITH MOTHER.
--- NOTE | 2021-04-01 18:41 | NUR ---
FAMILY MEMBERS AND CLOSE FRIEND PRESENT INTERMITTENTLY TO SEE PT AND PROVIDE SUPPORT.
[2021-04-02] VITALS (78 sets, daily range): BP systolic 107–163; BP diastolic 72–94
--- NOTE | 2021-04-02 08:00 | NUR ---
DR. DIAZ PRESENT THIS AM. PT ALERT, APPROPIATE, QUICKLY RESPONSIVE, TALKING (READING HER LIPS), POINTING AT CARES SHE WANTS PROVIDED. ABDOMEN REMAINS ROUNDED, DISTENDED AND FIRM HOWEVER VISIBLY LESS THAN YESTERDAY. PT STATES THAT HER ABD FEELS MUCH BETTER THAN YESTERDAY.
--- NOTE | 2021-04-02 08:15 | NUR ---
PATIENT CONTINUES COMFORT CARE MEASURES. PATIENT STATED MULTIPLE TIMES THAT SHE WANTED TO GET UP AND STRETCH. PATIENT AWAKE AND ALERT AND MOUTHING WORDS TO EXPRESS NEEDS/WANTS. PT'S FAMILY DID NOT CALL DURING THE SHIFT. TITRATED UP DILAUDID GTT D/T PT C/O OF ABD PAIN. PEG SET TO LIS WITH 600 ML OUTPUT DURING NOC SHIFT.
--- NOTE | 2021-04-02 11:12 | NUR ---
CARE TEAM NOW INDICATING THAT FAMILY AREN'T WANTING PT TO BE CONFORT CARE ANY LONGER AND WANT AGRESSIVE TREATMENT. PT HAVE BE HAVING SURGIAL INTERVENTION THIS DAY. CM FOLLOWING REGARDING NEEDS.
[2021-04-02 11:16] LABS: BASOPHILS 0.2 % (0.0-2.0); EOSINOPHILS 0.2 % (0.0-3.0); MCH 26.7 pg (26.0-34.0); MCHC 30.6 g/dL (28.0-37.0); MCV 87.1 fL (80.0-100.0); MONOCYTES 2.7 % (1.0-8.0); PLATELET COUNT 302 thou/uL (150-400); POLYS 91.9 % (36.0-66.0); RBC 2.99 mil/uL (4.20-5.00); WBC 15.2 thou/uL (4.0-11.0)
[2021-04-02 11:28] LABS: CALCIUM 8.4 mg/dL (8.5-10.1); POTASSIUM 4.9 mmol/L (3.5-5.1)
[2021-04-02 11:32] LABS: APTT 25.9 Seconds (24.5-32.8); INR 1.08; PROTIME 11.7 Seconds (10.5-12.1)
[2021-04-02 11:34] LABS: ALBUMIN 1.8 g/dL (3.4-5.0); MAGNESIUM 3.2 mg/dL (1.8-2.4); TOTAL BILIRUBIN 0.7 mg/dL (0.2-1.0); TOTAL PROTEIN 5.8 g/dL (6.4-8.2)
--- NOTE | 2021-04-02 16:00 | NUR ---
surgical consent signed by pt's son, Earle prior to surgery. pt to surgery per icu bed with the academic manager, accompanied by the OR crew.
--- NOTE | 2021-04-02 17:19 | NUR ---
returned from surgery on icu bed with hall monitor, accompanied by surgery crew. sedated on vent, dilaudid iv gtt and ns 100cc/hr restarted. ST, trach shiley XLT 7.0 attached to vent, continuing with previous vent settings. Lungs clear, mid abdominal large Wound Vac Ultra 125mmHg with serosanguinous drainage 125cc present on icu arrival. small guaze intact in right previous peg site. peg intact, clamped in left abd, 7.5cm at hub. diaz intact draining yellow urine with sediment. a couple of family members present, they each came to see pt, one by one then only remained briefly. they stated that Dr. Veliz spoke with family to notify them after surgery.
[2021-04-03] VITALS (49 sets, daily range): BP systolic 90–162; BP diastolic 27–93
[2021-04-03 04:39] LABS: BASOPHILS 0.2 % (0.0-2.0); EOSINOPHILS 0.6 % (0.0-3.0); HEMATOCRIT 24.6 % (37.0-47.0); HEMOGLOBIN 7.4 gm/dL (12.0-15.0); LYMPHOCYTES 7.4 % (24.0-44.0); MCH 26.2 pg (26.0-34.0); MCHC 30.1 g/dL (28.0-37.0); MCV 87.1 fL (80.0-100.0); MONOCYTES 3.9 % (1.0-8.0); PLATELET COUNT 284 thou/uL (150-400); POLYS 87.9 % (36.0-66.0); RBC 2.83 mil/uL (4.20-5.00); WBC 11.4 thou/uL (4.0-11.0)
[2021-04-03 04:50] LABS: ALBUMIN 1.6 g/dL (3.4-5.0); CALCIUM 8.1 mg/dL (8.5-10.1); CREATININE 0.9 mg/dL (0.6-1.0); POTASSIUM 4.7 mmol/L (3.5-5.1); TOTAL BILIRUBIN 0.6 mg/dL (0.2-1.0); TOTAL PROTEIN 4.9 g/dL (6.4-8.2)
--- NOTE | 2021-04-03 06:11 | NUR ---
NO ACUTE EVENTS OVERNIGHT. PT MORE ALERT THROUGHOUT SHIFT- MOUTHING WORDS.
--- NOTE | 2021-04-03 07:39 | NUR ---
ORDERS TO EVAL AND TREAT RECEIVED YESTERDAY HOWEVER Pt HAD SURGERY LATER IN THE DAY. WILL NEED NEW ORDERS TO SEE Pt WHEN APPROPRIATE.
--- NOTE | 2021-04-03 07:40 | NUR ---
PATIENT HAD AN EXPLARATORY LAPAROTOMY, WILL NEED NEW ORDERS ONCE PATIENT IS MEDICALLY APPROPRIATE.
[2021-04-03 11:34] LABS: PHOSPHORUS 5.7 mg/dL (2.5-4.9)
--- NOTE | 2021-04-03 15:37 | NUR ---
Care team indicated that pt underwent exploratory laparotomy, abdominal washout, partial gastrectomy, placement of feeding gastrostomy tube and placement of ABThera wound VAC. Pt is on TPN for the time being. Pt on iv abx. Cm following regarding dc planning.
--- NOTE | 2021-04-03 23:00 | NUR ---
PT'S MOTHER DANETTE CALLED FOR UPDATE. PT SLEEPING AT THIS TIME. VSS. AFEBRILE. TOLERATING VENT WELL. WILL CONTINUE TO MONITOR.
[2021-04-04] VITALS (23 sets, daily range): BP systolic 99–161; BP diastolic 51–96
[2021-04-04 05:18] LABS: HEMOGLOBIN 6.7 gm/dL (12.0-15.0)
[2021-04-04 05:21] LABS: MCH 26.9 pg (26.0-34.0); MCHC 30.6 g/dL (28.0-37.0); RBC 2.5 mil/uL (4.20-5.00); RDW 17.5 % (10.5-14.5); WBC 10.7 thou/uL (4.0-11.0)
[2021-04-04 05:41] LABS: CALCIUM 8.1 mg/dL (8.5-10.1); CREATININE 0.8 mg/dL (0.6-1.0)
--- NOTE | 2021-04-04 07:36 | NUR ---
NO SIGNIFICANT CHANGES OVER NIGHT. PT SLEPT MOST OF THE SHIFT. DILAUDID DRIP STILL INFUSING FOR PAIN MGT/VENT MGT. PT WAS ANXIOUS AND AGITATED THIS MORNING, ESPECIALLY WHEN SHE HAD DIFFICULTY COMMUNICATING. PRN LORAZEPAM GIVEN. TPN AND LIPIDS INFUSING ORDERED. ABDOMINAL WOUND VAC AND DRESSING INTACT. VSS. AFEBRILE. REPORT GIVEN TO ONCOMING NURSE.
--- NOTE | 2021-04-04 14:27 | NUR ---
PATIENT OFF UNIT AT 1420 FOR SURGERY. BLOOD SEND WITH OR STAFF TO TRANSFUSE IN OR.
--- NOTE | 2021-04-04 16:06 | PATH ---
[facility] [place] [address] PATHOLOGY RPT PROCEDURE Name: RICCI ROBLES Room #: 237-P ADM IN M.R.#: [id number] Admission: 02/08/21 Date of : 72 Discharge: Report #: [id number] Path Case #: [id number] [facility] Accession Number: [id number] . 01 Material submitted: . stomach - PARTIAL GASTRECTOMY. Modifiers: GASTRIC . 01 Clinical history: . EXPLORATORY LAPAROTOMY TUB/DRAIN INSERTION TUBE/DRAIN REMOVAL WASHOUT OF ABDOMEN DISLODGED FEEDING TUBE . 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 - Serosal wall with extensive acute and chronic inflammation, serosal adhesions and serositis. - No H. pylori-like organisms identified. - Negative for malignancy including all margins. (ANK:deandra; 04/04/2021) MBR 04/04/2021 1126 Local . 02 Electronically signed: . Alaina Yin MD, Pathologist NPI- [id number] . 01 Gross description: . The specimen is received in formalin, labeled "Ricci Robles, partial gastrectomy". Received is a segment of stomach with a stapled margin measuring 3.0 x 1.3 x 1.0 cm in greatest dimensions. The serosal surface is pale moses and disrupted in appearance. The staple line is removed. The specimen is serially sectioned and entirely submitted in cassette A1. (CAA; 04/03/2021) QA/QA 04/03/2021 0928 Local . 02 Pathologist provided ICD-10: K65.8 . 02 CPT . 129710 Specimen Comment: A courtesy copy of this report has been sent to [phone] Specimen Comment: [id number] Specimen Comment: Report sent to / DR HOOK Performed at: 01 [place] [address] PATHOLOGY RPT PROCEDURE Name: RICCI ROBLES Room #: 237-P [facility] IN .R.#: [id number] Admission: 02/08/21 Date of : 72 Discharge: Report #: [id number] Path Case #: [id number] [facility] Violeta Leal [address] [place] [address] [address], [place], [place] [id number] MD Caleb Almendarez MD Phone: [phone] Performed at: [address] [id number] MD Shala Calixto MD Phone: [phone]
--- NOTE | 2021-04-04 16:44 | NUR ---
PATIENT BACK TO UNIT POST SURGERY. WOUND VAC REMOVED. PREVENA DRESSING IN PLACE. 2 JAZLYN DRAINS POST OP TO ABDOMEN. 1 UNIT OF BLODO TRANSFUSED IN OR. PLACED ON MONITOR, VSS. UPDATED PT SON WHO IS CURRENTLY AT BEDSIDE.
--- NOTE | 2021-04-04 18:50 | NUR ---
MARICHUY TO OBTAIN TEMPERATURE. ARMANDO ZAIDI.
[2021-04-05] VITALS (24 sets, daily range): BP systolic 99–159; BP diastolic 55–80
[2021-04-05 05:20] LABS: HEMATOCRIT 25.5 % (37.0-47.0); MCH 27.7 pg (26.0-34.0); MCHC 31.3 g/dL (28.0-37.0); MCV 88.5 fL (80.0-100.0); RBC 2.88 mil/uL (4.20-5.00); RDW 16.8 % (10.5-14.5); WBC 8.4 thou/uL (4.0-11.0)
[2021-04-05 05:31] LABS: CREATININE 0.7 mg/dL (0.6-1.0); POTASSIUM 3.8 mmol/L (3.5-5.1)
--- NOTE | 2021-04-05 06:08 | NUR ---
PT ALERT AND FOLLOWS COMMANDS APPROPRIATELY.RESPONDS TO YES/NO QUESTION APPROPRAITELY.PT VOICING NEEDS BUT SOMETIMES GETS ANXIOUS AND FRUSTARTED IF STAFF DONT UNDERSTAND WHAT SHE IS SAYING.SHE WAS UNABLE TO WRITE DOWN HER NEEDS.ON DILAUDID DRIP FOR PAIN MANAGEMENT/VENT.PAIN CONTROLLED.PT DENIES PAIN.JAZLYN DRAIN WITH SEROSANGUIOUS DRAINAGE.G-TUBE CLAMPED.PREVANA VAC IN PLACE.DRESSING WAS REINFORCED WHERE VAC WAS HAVING A LEAK.MATT COLINDRES.PATIENT SISTER CALLED TO GET INFO ON PATIENT BUT RN WAS UNABLE TO GIVE HER ANY INFO DUE TO LACK OF PRIVACY CODE,SISTER WAS NOT HAPPY ABOUT THAT BUT WAS ADVISED TO CALL PATIENT'S MOM FOR THE CODE OR INFO.NO SIGNIFICANT CHANGES NOTED.WILL CONT TO MONITOR.
--- NOTE | 2021-04-05 12:38 | NUR ---
If surgery allows PEG for feeding, recommend start vital AF at 10ml/hr with goal 50ml/hr. Pharmacy will taper off TPN if appropriate.
--- NOTE | 2021-04-05 14:12 | NUR ---
Case discussed in ICU rounds this morning. Pt had abdominal surgery yesterday with [address] and the prevena VAC. Peg in place and RD recommending slowly starting enteral feedings at 10cc/hr. TPN to be weaned off accordingly. PT/OT reordered. Vent now at 40% via trach. Dilaudid for pain. LTAC referrals on hold pending approval of her [place] Medicaid shine. [facility] is following up with her family regarding supporting documentation. Pt's son and mom are visiting and being updated daily. Will follow.
[2021-04-06] VITALS (25 sets, daily range): BP systolic 142–177; BP diastolic 61–106
[2021-04-06 05:30] LABS: HEMATOCRIT 25.8 % (37.0-47.0); HEMOGLOBIN 8.1 gm/dL (12.0-15.0); MCH 27.9 pg (26.0-34.0); MCHC 31.5 g/dL (28.0-37.0); MCV 88.7 fL (80.0-100.0); RBC 2.91 mil/uL (4.20-5.00); WBC 6.2 thou/uL (4.0-11.0)
[2021-04-06 05:52] LABS: CREATININE 0.7 mg/dL (0.6-1.0); POTASSIUM 3.4 mmol/L (3.5-5.1)
--- NOTE | 2021-04-06 05:55 | NUR ---
Patient is not progressing towards plan of care as evidenced by continued dependence on ventilator for oxygen support and fent & precedex for sedation. Patient was adminisdtered midazolam 2ml x 3 for severe agitation.
--- NOTE | 2021-04-06 06:33 | NUR ---
PT BEEN RESTING IN NO ACUTE DISTRESS.A/O.FOLLOWS COMMANDS.PT BECOMES ANXIOUS VERY EASILY AND TACHYPNEIC WITH RR >40.UNABLE TO TITRATE DILAUDID DUE TO PATIENT BECOMING TACHYCARDIAC,RESTLESS AND TACHYPNEIC AND ALSO COMPLAINS OF GENERALIZED PAIN.WOUND VAC-PREVANA DRESSING CHANGED,TOLERATED.JAZLYN DRAIN DD.TOLERATING TUBE FEEDINGS AT 15ML/HR CURRENTLY.ADEQAUTE UO VIA GUTIERREZ.NO SIGNIFICANT CHANGES NOTED.WILL CONT TO MONITOR PER POC,
[2021-04-06 10:31] LABS: MAGNESIUM 1.9 mg/dL (1.8-2.4); PHOSPHORUS 3.4 mg/dL (2.6-4.7)
--- NOTE | 2021-04-06 11:57 | NUR ---
INCREASED PEEP TO [address] JONES'S VERBAL ORDER.
--- NOTE | 2021-04-06 12:34 | NUR ---
OT WOULD RECOMMEND ST EVALUATE THIS PT FOR COMMUNICATION NEEDS.
--- NOTE | 2021-04-06 17:28 | NUR ---
ASSUMED CARE OF PATIENT AT 0600. VENT SETTINGS WERE 24/450/.50 +6. POST ROUNDS PER DR ROBERT Valles INCREASED THE PEEP TO 8. PATIENT SATURATION IMPROVED. NO DISTRESS NOTED AT THIS TIME.
[2021-04-07] VITALS (23 sets, daily range): BP systolic 120–188; BP diastolic 60–97
[2021-04-07 05:34] LABS: ABSOLUTE NEUTROPHILS 4.5 thou/uL (1.4-8.2); BASOPHILS 0.9 % (0.0-2.0); HEMATOCRIT 23.6 % (37.0-47.0); HEMOGLOBIN 7.4 gm/dL (12.0-15.0); LYMPHOCYTES 17.8 % (24.0-44.0); MCH 27.4 pg (26.0-34.0); MCHC 31.2 g/dL (28.0-37.0); MCV 87.8 fL (80.0-100.0); PLATELET COUNT 229 thou/uL (150-400); POLYS 74.3 % (36.0-66.0); RBC 2.69 mil/uL (4.20-5.00); RDW 17.1 % (10.5-14.5)
[2021-04-07 05:54] LABS: ALBUMIN 1.4 g/dL (3.4-5.0); CREATININE 0.7 mg/dL (0.6-1.0); MAGNESIUM 1.7 mg/dL (1.8-2.4); PHOSPHORUS 2.7 mg/dL (2.6-4.7); POTASSIUM 3.2 mmol/L (3.5-5.1); TOTAL BILIRUBIN 0.3 mg/dL (0.2-1.0); TOTAL PROTEIN 5.4 g/dL (6.4-8.2)
--- NOTE | 2021-04-07 07:05 | NUR ---
ASSUMED CARE OF PT AT 1900. PAIGED SURGERY DUE TO WHITE SECRETIONS FROM TRACH THAT LOOKED SIMILAR TO TUBE FEED. DR MCALLISTER RETURNED CALL AT 0504. TUBE FEEDS STOPPED AND ESVIN TO COME ASSESS PT. NO IMAGING ORDERED. WILL CONTINUE POC.
[2021-04-07 09:05] LABS: HCO3 30.1 mmol/L (22.0-26.0); PCO2 58.6 mmHg (35.0-45.0); PO2 70.4 mmHg (80.0-100.0); pH 7.329 (7.360-7.450); sO2 92.6 % (92.0-98.0)
--- NOTE | 2021-04-07 17:43 | NUR ---
PATIENT PROGRESSING TOWARDS THE PLAN OF CARE. PT NO LONGER REQUIRING DIALUDID GTT FOR PAIN MANAGEMENT.
[2021-04-08] VITALS (23 sets, daily range): BP systolic 104–195; BP diastolic 58–103
[2021-04-08 04:59] LABS: ABSOLUTE NEUTROPHILS 3.2 thou/uL (1.4-8.2); BASOPHILS 0.7 % (0.0-2.0); EOSINOPHILS 0.5 % (0.0-3.0); HEMATOCRIT 23.5 % (37.0-47.0); HEMOGLOBIN 7.4 gm/dL (12.0-15.0); LYMPHOCYTES 15.5 % (24.0-44.0); MCH 27.6 pg (26.0-34.0); MCHC 31.3 g/dL (28.0-37.0); MONOCYTES 9.5 % (1.0-8.0); PLATELET COUNT 242 thou/uL (150-400); POLYS 73.8 % (36.0-66.0); RBC 2.67 mil/uL (4.20-5.00); RDW 16.8 % (10.5-14.5); WBC 4.4 thou/uL (4.0-11.0)
[2021-04-08 04:59] LABS: BE(vivo) 3.1 mmol/L (-2 to +3); HCO3 29.4 mmol/L (22.0-26.0); PCO2 55.7 mmHg (35.0-45.0); PO2 75.5 mmHg (80.0-100.0); pH 7.341 (7.360-7.450); sO2 94.1 % (92.0-98.0)
[2021-04-08 05:13] LABS: ALBUMIN 1.4 g/dL (3.4-5.0); CALCIUM 8.1 mg/dL (8.5-10.1); CREATININE 0.7 mg/dL (0.6-1.0); POTASSIUM 3.1 mmol/L (3.5-5.1); TOTAL BILIRUBIN 0.2 mg/dL (0.2-1.0); TOTAL PROTEIN 6.2 g/dL (6.4-8.2)
[2021-04-08 05:15] LABS: MAGNESIUM 1.8 mg/dL (1.8-2.4); PHOSPHORUS 3.1 mg/dL (2.5-4.9)
[2021-04-09] VITALS (36 sets, daily range): BP systolic 133–173; BP diastolic 75–122
[2021-04-09 06:17] LABS: ABSOLUTE NEUTROPHILS 3.8 thou/uL (1.4-8.2); BASOPHILS 0.7 % (0.0-2.0); HEMATOCRIT 21.4 % (37.0-47.0); HEMOGLOBIN 6.7 gm/dL (12.0-15.0); LYMPHOCYTES 18.8 % (24.0-44.0); MCH 26.9 pg (26.0-34.0); MCHC 31.2 g/dL (28.0-37.0); MCV 86.3 fL (80.0-100.0); MONOCYTES 11.5 % (1.0-8.0); PLATELET COUNT 261 thou/uL (150-400); RBC 2.48 mil/uL (4.20-5.00); RDW 17.1 % (10.5-14.5); WBC 5.6 thou/uL (4.0-11.0)
[2021-04-09 06:24] LABS: CALCIUM 8.1 mg/dL (8.5-10.1); CREATININE 0.8 mg/dL (0.6-1.0); MAGNESIUM 1.7 mg/dL (1.8-2.4); PHOSPHORUS 2.4 mg/dL (2.6-4.7); POTASSIUM 3.3 mmol/L (3.5-5.1)
--- NOTE | 2021-04-09 07:36 | NUR ---
Pt. anxious at beginning of shift. Able to mouth words to make needs known. Oriented to person and knows she is at the hospital. Anxiety med given with relief. She has been repositioned for comfort. Maintaining O2 sat >90 on current vent setting at 40% FIO2. Suctioned prn. Kept NPO ,TPN infusing. Peg tube to dependent drainage and emptied 150 ml of thick greenish to yellow secretions this shift. FMS intact with liquid stool. Complete bed bath given. Z guard applied to buttocks. Low hgb called to STORE DETECTIVE this am and order received. Gave report to day RN and updated on new order. Abdominal incision with dressing intact.
[2021-04-09 09:28] LABS: BE(vivo) 3.6 mmol/L (-2 to +3); HCO3 28.4 mmol/L (22.0-26.0); PO2 82.7 mmHg (80.0-100.0); pH 7.427 (7.360-7.450); sO2 96.3 % (92.0-98.0)
--- NOTE | 2021-04-09 10:33 | NUR ---
50F, TRACH/VENT, TACHYPENIA, DENIES PAIN, PHYSICAL THERAPY AT BEDSIDE, K 3.3 [id number] GIVEN PER ORDER, 1 UNIT OF PRBC STARTED, LORAZAPAM GIVEN FOR ANXIETY RR 45
--- NOTE | 2021-04-09 15:49 | NUR ---
PT HG 6.2 DISCUSSED THIS W/ MD SHERIDAN PLAN IS TO REPEAT HG AND TRANFUSE 2 UNITS IF THE HG IS CORRECT. PT NOTE TO HAVE NO SIGN OF ACUTE BLEEDING.
--- NOTE | 2021-04-09 16:59 | NUR ---
Pt's care discussed during ICU rounds this day. Pt is s/p Trach and Peg Mech Vent: AC 450cc, rr 28, FIO2 50 % PEEP of 8. Pt continues on tpn. Theapies are orderd and working with pt. Cm following regarding care needs.
[2021-04-09 17:07] LABS: BE(vivo) 2.7 mmol/L (-2 to +3); HCO3 27.8 mmol/L (22.0-26.0); PCO2 45.2 mmHg (35.0-45.0); pH 7.406 (7.360-7.450); sO2 87.5 % (92.0-98.0)
--- NOTE | 2021-04-09 18:34 | NUR ---
50F, TRACH/VENT,TACHYPENIC RR45-55, MORPHINE 2 MG GIVEN, 1/2 PRBC INFUSING, XRAY DONE PO2 56 DISCUSS W/ MD SHERIDAN, PLAN IS TO INCREASE PEEP 10, WANT A CBC POST TRANFUSION, MONITOR FOR SIGNS OF BLEEDING.
[2021-04-10] VITALS (51 sets, daily range): BP systolic 95–169; BP diastolic 54–100
[2021-04-10 05:05] LABS: HEMATOCRIT 32.1 % (37.0-47.0); MCH 27.8 pg (26.0-34.0); MCHC 31.4 g/dL (28.0-37.0); MCV 88.6 fL (80.0-100.0); RBC 3.62 mil/uL (4.20-5.00); RDW 16.4 % (10.5-14.5); WBC 6.3 thou/uL (4.0-11.0)
[2021-04-10 05:17] LABS: CALCIUM 7.9 mg/dL (8.5-10.1); CREATININE 0.7 mg/dL (0.6-1.0); POTASSIUM 3.5 mmol/L (3.5-5.1)
[2021-04-10 05:23] LABS: HEMOGLOBIN 10.1 gm/dL (12.0-15.0)
--- NOTE | 2021-04-10 08:09 | NUR ---
PT PROGRESSING SLOWLY TOWARDS D/C GOALS. VSS. AFEBRILE. HR 90-LOW 100S. SATS UPPER 90S TO 100% ALL NIGHT LONG. FIO2 DOWN TO 55%. PT RECEIVED HER 3RD UNIT OF BLOOD WITHOUT ANY S/S REACTION. ABDOMEN IS LG, ROUND, DISTENDED AND FIRM IT HAS BEEN SINCE THE BEGINNING OF THE SHIFT PRIOR TO TF BEING STARTED. SMALL AMTS SEROSANGINOUS DRAINAGE NOTED ALONG ABDOMINAL INCISION. DRESSING CHANGED. JPX2 DRAINING SEROUS DRAINAGE WITH SOME BLOOD TINGED DRAINAGE. G-TUBE WITH RESIDUALS OF 5-10 ML TONIGHT. BS REMAIN HYPOACTIVE. PT HAS BEEN RESTING BETTER TONIGHT WITH HER OXYCODONE SCHEDULED.
[2021-04-10 08:53] LABS: MAGNESIUM 1.4 mg/dL (1.8-2.4); PHOSPHORUS 3.1 mg/dL (2.5-4.9)
--- NOTE | 2021-04-10 13:25 | NUR ---
PT C/O OF ABDOMINAL PAIN, RESIDUAL 150, ABDOMEN IS MORE DISTENDED THEN BEFORE, FEEDS HELD AND PEG PLACED TO DRAIN.
--- NOTE | 2021-04-10 15:58 | NUR ---
PT'S CARE WAS DISCUSSED DURING ICU ROUNDS THIS AM. PT REMAINS ON VENT FIO2 50% PEEP of 8. PT'S TUBE FEEDING IS ON HOLD. SURGERY INDICATED THEY PLAN A KUB TOMORROW. CM FOLLOWING REGARDING DC PLANNING.
[2021-04-10 18:40] LABS: HEMATOCRIT 31.5 % (37.0-47.0); HEMOGLOBIN 10.1 gm/dL (12.0-15.0); MCH 28.1 pg (26.0-34.0); MCHC 32.1 g/dL (28.0-37.0); MCV 87.5 fL (80.0-100.0); RBC 3.6 mil/uL (4.20-5.00); RDW 16.4 % (10.5-14.5); WBC 6.7 thou/uL (4.0-11.0)
--- NOTE | 2021-04-10 18:47 | NUR ---
PT ABDOMEN DISTENDED, FEEDS STOPPED AND CHECK RESIDUALS, PT C/P OF ABD DISTENDED, NOTE BLADDER DISTENTION, FLUSHED GUTIERREZ AND HAD GOOD URINE OUTPUT. PT NO LONGER C/P OF PAIN.
[2021-04-10 19:38] LABS: POTASSIUM 3.7 mmol/L (3.5-5.1)
[2021-04-11] VITALS (37 sets, daily range): BP systolic 121–159; BP diastolic 64–85
--- NOTE | 2021-04-11 07:31 | NUR ---
PATIENT DID NOT C/O OF PAIN THROUGHOUT THE NOC. PATIENT NPO SO ALL MEDS VIA PEG TUBE ROUTE HELD. PATIENT RECEIVING TPN @ [address] OF TUBE FEED. PATIENT AWAKE AND ALERT AND EXPRESSED HAVING TROUBLE SLEEPING. PATIENT ABD INCISION WIH DRESSING CHANGE COMPLETED DURING NOC SHIFT. PATIENT HAS 2 JAZLYN DRAINS WITH SEROUS TO SEROSANGUINEOUS DRAINAGE.
--- NOTE | 2021-04-11 16:19 | NUR ---
PT WAS TO HAVE KUB TODAY BUT HAD CT INSTEAD. PT WITH FEVER. PEG MAY NOT BE IN CORECT PLACE TUBE FEEDING HELD. PT ON TPN. CM SPOKE WITH PT'S MOTHER THIS AM SHE ASKED THAT PT'S SISTER BE ABLE TO VISIT HER. CM VISITED WITH PT AND HER NURSE AT BEDSIDE AND PT INDICATED BY NODDING AND MOUTHING RESPONSE THAT YES SHE WANTED HER TO VISIT. CM FOLLOWING.
--- NOTE | 2021-04-11 20:46 | NUR ---
xray injected the gastrogaffin into the pegtube for placement check. pt tolerated without discomfort.
--- NOTE | 2021-04-11 21:33 | NUR ---
followed up with Keren regarding the status of the peg tube. reported to him the results of the test. ordered to put the peg tube to dependant drainage. no restarting the tube feeding tonight.
[2021-04-12] VITALS (20 sets, daily range): BP systolic 112–159; BP diastolic 64–87
[2021-04-12 12:31] LABS: HEMATOCRIT 29.8 % (37.0-47.0); HEMOGLOBIN 9.7 gm/dL (12.0-15.0); MCH 27.9 pg (26.0-34.0); MCHC 32.5 g/dL (28.0-37.0); MCV 85.9 fL (80.0-100.0); RBC 3.47 mil/uL (4.20-5.00); RDW 15.6 % (10.5-14.5); WBC 7.1 thou/uL (4.0-11.0)
[2021-04-12 14:41] LABS: CALCIUM 8.3 mg/dL (8.5-10.1); CREATININE 0.7 mg/dL (0.6-1.0); MAGNESIUM 1.6 mg/dL (1.8-2.4); PHOSPHORUS 2.8 mg/dL (2.5-4.9); POTASSIUM 3.1 mmol/L (3.5-5.1)
[2021-04-12 23:18] LABS: MAGNESIUM 1.9 mg/dL (1.8-2.4); POTASSIUM 3.4 mmol/L (3.5-5.1)
[2021-04-13] VITALS (24 sets, daily range): BP systolic 128–155; BP diastolic 72–91
[2021-04-13 10:44] LABS: CALCIUM 8.3 mg/dL (8.5-10.1); CREATININE 0.7 mg/dL (0.6-1.0); POTASSIUM 3.8 mmol/L (3.5-5.1)
--- NOTE | 2021-04-13 15:15 | NUR ---
PT CONTINUES WITH CURRENT COURSE OF CARE. PT ON IV ABX ON VENT. IS MORE RESPONSIVE. AWAITING DCN TO EXPLORE NEXT LEVEL OF CARE OPTIONS. CM FOLLOWING.
--- NOTE | 2021-04-13 19:19 | NUR ---
PT C/O ABD PAIN, BLOATING, AND DISCOMFORT THROUGHOUT THE DAY, DESPITE MINIMAL GASTRIC RESIDUALS. THIS RN LEFT A MESSAGE FOR DR. DIAZ AT 0920 TO UPDATE REGARDING PEG TUBE. DR. MCALLISTER CALLED THIS RN AT 1205 AND ORDERED A KUB TO VERIFY TUBE PLACEMENT. RESULTS DETERMINED THAT THE TUBE WAS IN THE STOMACH. DR. DIAZ TOLD THIS RN TO CONSULT IR TO DRAIN ABSCESSES REVEALED IN CT SCAN ON 04/10. IR CAME AROUND 1610 TO PERFORM A BEDSIDE PROCEDURE AND PLACED 2 DRAINS. PT STILL C/O PAIN BUT APPEARS TO BE COMFORTABLE AND RESTING. PT'S MOTHER DANETTE AND PT'S OLDEST SON MICHELLE WERE AT BEDSIDE FROM 1715 UNTIL 1800 AND WERE UPDATED REGARDING PT'S STATUS AND PROCEDURE.
[2021-04-14] VITALS (24 sets, daily range): BP systolic 124–183; BP diastolic 69–96
--- NOTE | 2021-04-14 06:19 | NUR ---
PT A/O X4 WILL MOUTH WORDS. ATTEMPT Q2 TURNS PT REFUSES, ALSO OFFERED BATH AND PT REFUSED. FOLLOWING POC WITH TPN, LIPIDS, AND IV ABX. SAME COMPLAINTS OF PAIN IN ABDOMEN. PARTIAL RELIEF WITH OXYCODONE AND ATIVAN TO HELP WITH ANXIETY. GUTIERREZ TO DD. [address], 2 JAZLYN AND 2 G TUBE TO DD. FLUSHED ALL DRAINS WITH 10ML NS. PT TITRATED DOWN TO 30% BY RT. VSS OVERNIGHT.
--- NOTE | 2021-04-14 15:36 | NUR ---
PT IS ALERT TO SELF. UNABLE TO ASSESS ORIENTATION QUESTIONS. PT HAS TRACH AND IS ON THE VENTILATOR. PT IS ABLE TO MOUTH WORDS TO COMMUNICATE NEEDS TO STAFF. PT HAS COMPLAINT OF ABD PAIN AND REQUESTED PAIN MEDICATION. GAVE PRN PAIN MEDICATION. PT RECEIVED PRN ZOFRAN FOR NAUSEA. TUBE FEED WAS STARTED AT 10ML/HR AND ONLY TO START AT A SLOW RATE. NO RESIDUAL FROM PEG TUBE. SR ON THE MONITOR. WILL CONTINUE TO MONITOR.
--- NOTE | 2021-04-14 23:06 | NUR ---
PT IS ALERT AND ORIENTED TO SELF. AT THIS TIME REMAINS ON VENT LUNGS ARE COARSE. SUCTION MINIMAL SECREATIONS NOTED WHITE. PAGED DR. REZA AT 2306,2315 AND A THIRD AT 2330. THEN REACHED AT HOME PT IS HAVING ALOT OF ABDOMINAL PAIN AND BACK PAIN AT THIS TIME. PAIN MEDS GIVEN RATES PAIN A 10 WITH NO RELIEF. PAIN ALL IN ABDOMEN AND BACK. HAS ABDOMEN DRESSING DRY AND INTACT. AND DRAINS FLUSHED CURENTLY DRAINING. DR. MCALLISTER ANSWERED AT HOME AND SAID TO GET A KUB ON PT AND ORDRED ONE STAT AND PLACED IN COMPUTER. AWAITING RESULTS. ONGOING MONITORING AT THIS TIME WITH PT IN REGARDS TO NEW ONSET OF SEVERE PAIN. PAIN MAKING HER HYPERVENTILATE.
[2021-04-15] VITALS (24 sets, daily range): BP systolic 132–188; BP diastolic 64–102
--- NOTE | 2021-04-15 00:30 | NUR ---
PT IS IMPULSIVE PULLING AT HER VENTILATE AND TAKING IT APART. INSTRUCTED PT NOT TO DO THIS FOR HER SAFETY. HOWEVER PT CONTINUES TO DO THE BEHAVIOR . Yohannes BACK FOOT DOCTOR PAGED FOR RESTRAINT ORDER AT THIS TIME SO THAT SHE DOES NOT COMPROMISE HER CARE MULTIPLE LINES AND TUBE AND PULLING AT THEM AT CURRENT TIME. ONGOING OBSERVATION AND MONITORING IN PLACE. RN AT BEDSIDE ALOT TRYING TO CONTROL PAIN MANAGMENT AND HER PULLING AT VENT.
[2021-04-15 05:08] LABS: HEMATOCRIT 31.4 % (37.0-47.0); HEMOGLOBIN 10.1 gm/dL (12.0-15.0); MCH 27.4 pg (26.0-34.0); MCHC 32.2 g/dL (28.0-37.0); MCV 85.2 fL (80.0-100.0); RBC 3.69 mil/uL (4.20-5.00); RDW 15.3 % (10.5-14.5); WBC 13.2 thou/uL (4.0-11.0)
[2021-04-15 05:21] LABS: ALBUMIN 1.7 g/dL (3.4-5.0); CALCIUM 8.7 mg/dL (8.5-10.1); CREATININE 0.7 mg/dL (0.6-1.0); MAGNESIUM 1.9 mg/dL (1.8-2.4); PHOSPHORUS 2.2 mg/dL (2.6-4.7); POTASSIUM 3.4 mmol/L (3.5-5.1); TOTAL BILIRUBIN 0.2 mg/dL (0.2-1.0); TOTAL PROTEIN 7.3 g/dL (6.4-8.2)
[2021-04-16] VITALS (17 sets, daily range): BP systolic 128–158; BP diastolic 68–88
[2021-04-16 06:41] LABS: HEMATOCRIT 30.2 % (37.0-47.0); HEMOGLOBIN 9.7 gm/dL (12.0-15.0); MCH 27.1 pg (26.0-34.0); MCV 84.6 fL (80.0-100.0); RBC 3.57 mil/uL (4.20-5.00); RDW 16.1 % (10.5-14.5); WBC 13.5 thou/uL (4.0-11.0)
[2021-04-16 06:48] LABS: CALCIUM 8.8 mg/dL (8.5-10.1); CREATININE 0.8 mg/dL (0.6-1.0); POTASSIUM 3.4 mmol/L (3.5-5.1)
--- NOTE | 2021-04-16 15:57 | NUR ---
PT HAD EPISODE OF EMISIS THIS WEEKEND AND HAD CT. PT'S PRG IS TO LIS. PT ON VENT AT 35% PEEP OF 8. PT HAS DRAINS IN. PT CONTINUES ON TPN. AWAITING ACTIVE DCN SO THAT LTAC CAN POSSIBLY BE EXPLORED. CM FOLLOWING.
--- NOTE | 2021-04-16 16:43 | NUR ---
PATIENT SLOWLY PROGRESSING TOWARDS THE PLAN OF CARE. UNABLE TO TOLERATE TUBE FEEDINGS DUE TO NAUSEA. G TUBE TO LIS PER DR. DIAZ.
[2021-04-17] VITALS (24 sets, daily range): BP systolic 110–165; BP diastolic 60–99
[2021-04-17 07:41] LABS: ALBUMIN 1.7 g/dL (3.4-5.0); CREATININE 0.7 mg/dL (0.6-1.0); PHOSPHORUS 3.5 mg/dL (2.5-4.9); POTASSIUM 3.9 mmol/L (3.5-5.1); TOTAL BILIRUBIN 0.2 mg/dL (0.2-1.0); TOTAL PROTEIN 7.6 g/dL (6.4-8.2)
--- NOTE | 2021-04-17 11:52 | NUR ---
PT'S MOM ([place]) ASKED THAT DNR BE REVERSED. SHOERTLY THERE p PT'S SON MICHELLE CALLED AND ALSO STATED THAT HE WANTED THE CODE STATUS CHANGED TO FULL CODE. INFORMED JANICE, PRIMARY RN.--VW
[2021-04-18] VITALS (15 sets, daily range): BP systolic 142–172; BP diastolic 76–99
--- NOTE | 2021-04-18 05:48 | NUR ---
PATIENT AWAKE/ALERT MOST OF SHIFT. PT GIVEN PRN ATIVAN FOR ANXIETY BEFORE 2200. PATIENT EXTREMITIES WEAK WITH NOTABLE WEIGHT LOSS SINCE ADMISSION, WORKING WITH OT ON DAY SHIFT, ENCOURAGED TO HOLD ORAL SUCTION AND LIFT ARMS DURING REPOSITIONING. PATIENT FMS IN PLACE WITH LEAKING AROUND TUBE NOTED ONE TIME, REPOSITIONED, IRRIGATED, AND REINFLATED PER PROTOCOL, WITH PERICARE GIVEN. PATIENT SBP 150-170s WITH SCHEDULED IVP METOPROLOL ADMINISTERED. THICK WHITE SECRETIONS NOTED WITH IN-LINE SUCTIONING. COMPLETE BATH WITH LINEN CHANGE DONE. PATIENT HAS [address] - SEE INTERVENTIONS FOR MORE SPECIFICS. PEG TO LIS.
[2021-04-18 06:30] LABS: CALCIUM 8.8 mg/dL (8.5-10.1); CREATININE 0.6 mg/dL (0.6-1.0); POTASSIUM 3.7 mmol/L (3.5-5.1)
--- NOTE | 2021-04-18 16:36 | NUR ---
PT WITH PEG STILL TO LIS. PT ON TPM. PT'S SON AND MOTHER CHANGED HER TO FULL CODE. CM FOLLOWING REGARDING DC PLANNING. AWAITING ACTIVE DCN TO DISCUSS POSSIBLE TRANSITION TO LTAC WITH PT AND FAMILY. NO DC ANTICIPATED THIS HOLIDAY WEEKEND.
[2021-04-19] VITALS (12 sets, daily range): BP systolic 105–158; BP diastolic 60–87
--- NOTE | 2021-04-19 07:17 | NUR ---
Pt remains stable. Awaiting insurance approval for LTACH.
[2021-04-19 09:48] LABS: CALCIUM 8.6 mg/dL (8.5-10.1); CREATININE 0.7 mg/dL (0.6-1.0)
[2021-04-20] VITALS (12 sets, daily range): BP systolic 123–173; BP diastolic 29–101
--- NOTE | 2021-04-20 00:58 | NUR ---
SINCE START OF SHIFT PATIENT PRESSING CALL LIGHT EVERY COUPLE MINUTES. NURSE OR CO WORKER WOULD GO TO ANSWER THE LIGHT HAVING THEM DO NOTING AT TIMES. PATIENT WAS ALSO INTENTIALLY TAKING PULSE OX PROBE OFF. IT WAS REPLACED SEVERAL TIMES.
--- NOTE | 2021-04-20 04:08 | NUR ---
PT HAS VERY THICK SECRETIONS PER TRACH. RT REQUESTED MUCOMYST ORDERED. CHANGED VENT SETINGS TO PEEP OF 6 [address] RATE OF 22. DR JONES CALLED AND MUCOMYST WAS ORDERED. PATIENT BELLY AROUND 0400 SEEMS MORE DISTENDED. PE TUBE STILL TO LOW INTERMITTANT SUCTION WITH ABOUT 100CC OUTPUT THUS FAR. PATIENT REPORTS BELLY FEELING "TIGHT". WILL HOLD OFF PUTING ANY MORE MEDS THROUGH TUBE FOR REMAINDER OF SHIFT. WCTM.
[2021-04-20 05:55] LABS: ALBUMIN 1.8 g/dL (3.4-5.0); CALCIUM 8.8 mg/dL (8.5-10.1); CREATININE 0.6 mg/dL (0.6-1.0); PHOSPHORUS 3.1 mg/dL (2.5-4.9); TOTAL BILIRUBIN 0.2 mg/dL (0.2-1.0); TOTAL PROTEIN 7.5 g/dL (6.4-8.2)
--- NOTE | 2021-04-20 18:59 | NUR ---
PT IS STABLE AND STATUS REMAINS UNCHANGED. PT'S SON AND MOTHER WERE AT BEDSIDE FROM 1700 TO 1800 AND WERE UPDATED REGARDING PT STATUS AND POC. WILL CONTINUE TO FOLLOW POC.
[2021-04-21] VITALS (13 sets, daily range): BP systolic 138–181; BP diastolic 62–112
[2021-04-21 11:55] LABS: HEMATOCRIT 29.8 % (37.0-47.0); HEMOGLOBIN 9.5 gm/dL (12.0-15.0); MCH 27.3 pg (26.0-34.0); MCHC 31.9 g/dL (28.0-37.0); MCV 85.7 fL (80.0-100.0); RBC 3.48 mil/uL (4.20-5.00); RDW 16.2 % (10.5-14.5)
[2021-04-21 12:15] LABS: ALBUMIN 1.9 g/dL (3.4-5.0); CALCIUM 8.7 mg/dL (8.5-10.1); CREATININE 0.7 mg/dL (0.6-1.0); MAGNESIUM 1.8 mg/dL (1.8-2.4); PHOSPHORUS 3.2 mg/dL (2.5-4.9); POTASSIUM 4.3 mmol/L (3.5-5.1); TOTAL BILIRUBIN 0.2 mg/dL (0.2-1.0); TOTAL PROTEIN 7.9 g/dL (6.4-8.2)
[2021-04-22] VITALS (20 sets, daily range): BP systolic 113–171; BP diastolic 59–101
[2021-04-22 09:50] LABS: CALCIUM 8.7 mg/dL (8.5-10.1); CREATININE 0.6 mg/dL (0.6-1.0); MAGNESIUM 2.1 mg/dL (1.8-2.4); PHOSPHORUS 3.5 mg/dL (2.5-4.9); POTASSIUM 4.3 mmol/L (3.5-5.1)
--- NOTE | 2021-04-22 19:23 | NUR ---
PT PROGRESSING TOWARDS D/C GOALS. NUMEROUS FAMILY MEMBERS STOPPED BY TODAY. NO ADVERSE EVENTS. WILL CONTINUE TO FOLLOW POC.
[2021-04-23] VITALS (21 sets, daily range): BP systolic 125–172; BP diastolic 31–107
[2021-04-23 09:32] LABS: BE(vivo) 2.7 mmol/L (-2 to +3); PCO2 52.7 mmHg (35.0-45.0); PO2 61.7 mmHg (80.0-100.0); pH 7.358 (7.360-7.450); sO2 90.4 % (92.0-98.0)
[2021-04-23 10:07] LABS: HEMATOCRIT 31.2 % (37.0-47.0); HEMOGLOBIN 9.5 gm/dL (12.0-15.0); MCH 26.5 pg (26.0-34.0); MCHC 30.6 g/dL (28.0-37.0); MCV 86.6 fL (80.0-100.0); RDW 16.4 % (10.5-14.5); WBC 23.3 thou/uL (4.0-11.0)
[2021-04-23 10:08] LABS: PLATELET COUNT 386 thou/uL (150-400)
[2021-04-23 10:19] LABS: ALBUMIN 1.8 g/dL (3.4-5.0); CALCIUM 8.9 mg/dL (8.5-10.1); CREATININE 0.6 mg/dL (0.6-1.0); POTASSIUM 4.3 mmol/L (3.5-5.1); TOTAL BILIRUBIN 0.2 mg/dL (0.2-1.0); TOTAL PROTEIN 8.2 g/dL (6.4-8.2)
[2021-04-23 13:03] LABS: ABSOLUTE NEUTROPHILS 19.3 thou/uL (1.4-8.2)
[2021-04-23 13:04] LABS: ANISOCYTOSIS 1+
[2021-04-23 15:16] LABS: URINE BILIRUBIN NEGATIVE (Negative); URINE BLOOD 2+ (Negative); URINE CLARITY CLOUDY; URINE COLOR YELLOW; URINE GLUCOSE-RANDOM* NEGATIVE (Negative); URINE KETONES NEGATIVE (Negative); URINE LEUKOCYTES 3+ (Negative); URINE NITRITE NEGATIVE (Negative); URINE PROTEIN (DIPSTICK) 2+ (Negative); URINE SPECIFIC GRAVITY 1.015 (1.005-1.035); URINE UROBILINOGEN 0.2 E.U./dl (0.2-1.0)
[2021-04-23 15:20] LABS: BACTERIA 1-9 Few /HPF (None Seen); CRYSTALS None Seen /LPF (None Seen); SQUAMOUS None Seen /LPF (0-3); URINE RBC 3-10 Few /HPF (NONE SEEN); URINE WBC >25 Many /HPF (NONE SEEN)
[2021-04-23 15:22] LABS: YEAST Present (None Seen)
[2021-04-24] VITALS (24 sets, daily range): BP systolic 129–181; BP diastolic 64–115
[2021-04-24 05:20] LABS: BE(vivo) 1.6 mmol/L (-2 to +3); HCO3 26.8 mmol/L (22.0-26.0); PCO2 44.6 mmHg (35.0-45.0); PO2 65.7 mmHg (80.0-100.0); pH 7.396 (7.360-7.450); sO2 92.8 % (92.0-98.0)
[2021-04-24 06:02] LABS: HEMATOCRIT 27.4 % (37.0-47.0); HEMOGLOBIN 8.8 gm/dL (12.0-15.0); MCH 27.3 pg (26.0-34.0); MCV 85.3 fL (80.0-100.0); PLATELET COUNT 324 thou/uL (150-400); RBC 3.22 mil/uL (4.20-5.00); RDW 16.2 % (10.5-14.5); WBC 19.5 thou/uL (4.0-11.0)
[2021-04-24 06:26] LABS: ALBUMIN 1.7 g/dL (3.4-5.0); CALCIUM 8.8 mg/dL (8.5-10.1); CREATININE 0.6 mg/dL (0.6-1.0); MAGNESIUM 1.8 mg/dL (1.8-2.4); PHOSPHORUS 3.6 mg/dL (2.6-4.7); POTASSIUM 4.5 mmol/L (3.5-5.1); TOTAL BILIRUBIN 0.2 mg/dL (0.2-1.0); TOTAL PROTEIN 7.7 g/dL (6.4-8.2)
--- NOTE | 2021-04-24 09:42 | NUR ---
VERBAL REPORT RECEIEVED PT FOUND ASLEEP, INFUSING TPN AND IV FLUSH. PT RECIEVED CONTRAST VIA PEG. PLAN IS TO GO TO [facility].
[2021-04-24 09:55] LABS: ABSOLUTE NEUTROPHILS 16.6 thou/uL (1.4-8.2)
[2021-04-24 09:57] LABS: ANISOCYTOSIS SLIGHT; POIKILOCYTOSIS SLIGHT; POLYCHROMASIA SLIGHT
--- NOTE | 2021-04-24 19:45 | NUR ---
PT GOT VERY ANXIOUS AFTERMOTHER LEFT. HR >130 BP 160/100, LORAZAPAM X1 GIVEN AND DILUADED 1 MG GIVEN. PT REMAIN TACHYCARDIC AND TACHYPENIA SPOKE TO MD SHERIDAN HE GAVE A VERBAL ORDER OF LORAZOPAM 2MG IVP X1. PT HAS NO EFFECT.LATER METOPROLOL 5 MG IVP GIVEN PER ARVIN THE HR WENT TO 1110 BP 140/90. VERBAL REPORT GIVEN TO INCOMING RN.
[2021-04-25] VITALS (12 sets, daily range): BP systolic 109–186; BP diastolic 62–94
[2021-04-25 05:01] LABS: HEMATOCRIT 29.4 % (37.0-47.0); HEMOGLOBIN 9.1 gm/dL (12.0-15.0); MCH 26.7 pg (26.0-34.0); MCHC 31.2 g/dL (28.0-37.0); MCV 85.7 fL (80.0-100.0); PLATELET COUNT 333 thou/uL (150-400); RBC 3.42 mil/uL (4.20-5.00); RDW 16.4 % (10.5-14.5); WBC 19.4 thou/uL (4.0-11.0)
[2021-04-25 05:12] LABS: ALBUMIN 1.8 g/dL (3.4-5.0); CREATININE 0.5 mg/dL (0.6-1.0); POTASSIUM 4.6 mmol/L (3.5-5.1); TOTAL BILIRUBIN 0.3 mg/dL (0.2-1.0); TOTAL PROTEIN 8.4 g/dL (6.4-8.2)
--- NOTE | 2021-04-25 08:15 | NUR ---
Assumed care at 1900. pt was tachycardic at beginning of shift - metoprolol administred per providers order. Pt pulled out her L. upper arm PICC line at 1130. R.hand peipheral access obtained. TPN & Fat emulsion placed on hold for lack of central line access. ROD PULLER notified of patient status. D5W ordered and administred at the rate of 80 MLS/HR. Restraints orderd by ROD PULLER and applied by this RN. 1mg of ativan administered during shift for agitation.
--- NOTE | 2021-04-25 09:45 | NUR ---
PT PULLED OUT 3RD CENTRAL LINE THAT WAS PLACED BY THE VAT THIS ADMISSION, SHE WILL NEED INCLINED RAILWAY OPERATOR CENTRAL ACCESS FOR TPN. DR SHERIDAN APPROVED A TUNNELED LINE IR ORDER PLACED
[2021-04-25 11:27] LABS: ABSOLUTE NEUTROPHILS 15.7 thou/uL (1.4-8.2); ANISOCYTOSIS 1+; METAMYELOCYTES 3 %; MYELOCYTES 2 %
--- NOTE | 2021-04-25 12:34 | NUR ---
PT PULLED THE PICC ACCESS OUT LAST NIGHT, IR IS CONSULTED FOR A NEW CENTRAL LINE. CURRENTLY THE PT HAS A 22G IN HER R. HAND. IT IS NOT LEAKING NOR S/S INFILTRATION BUT SHE SHAKES WHEN ATTEMPTING TO ADM IV MEDS. THE PROVIDER IS NOTIFIED THAT THE PT HAS NOT RECEIVED LASIK AND HER UO IS LOW.
--- NOTE | 2021-04-25 15:05 | NUR ---
IR NOT AVAILABLE AT THIS TIME, 5FRTLIJ PLACED FOR ACCESS. TUNNELED LINE NEEDED WHEN GOING TO LTACH WITH IV MEDS.
[2021-04-26] VITALS (11 sets, daily range): BP systolic 119–150; BP diastolic 69–93
[2021-04-26 05:46] LABS: CALCIUM 8.6 mg/dL (8.5-10.1); CREATININE 0.5 mg/dL (0.6-1.0); MAGNESIUM 1.6 mg/dL (1.8-2.4); PHOSPHORUS 3.9 mg/dL (2.5-4.9); POTASSIUM 3.8 mmol/L (3.5-5.1)
--- NOTE | 2021-04-26 07:33 | NUR ---
Patient is slowly progressing towards plan of care as evidenced by patient's alertness & orientation, and her vent settings at low settings and is not dependent of sedative or BP gtts.
--- NOTE | 2021-04-26 08:48 | NUR ---
FRIDAY CM VISITED WITH PT AND MOTHER DANETTE AT BEDSIDE AND INDICATED THAT CARE TEAM HAVE INDICATED THAT PT IS MEDICALLY STABLE TO TRANSITION TO LTAC LEVEL OF CARE. CM TOLD THEM ABOUT THE THREE IN OUR AREA AND THEY INDICATED THEY WANTED SOMEWHERE CLOSE TO HERE POSSIBLE. PT'S DCN STILL DOESN'T SHOW ACTIVE. CM FAXED REFERRAL TO [facility] LATE FRIDAY. LATE YESTERDAY FRIDAY [facility] INDICATED THEY CAN'T ACCEPT PT'S CARE WOULD BE TOO COSTLY AND WOULD BE MORE THEN MEDICAID WOULD PAY. CM FAXED REFERRAL TO [facility] TO REVIEW FOR POSSIBLE ADMISSION. CM NOTIFIED LIAIS[facility].
--- NOTE | 2021-04-26 12:31 | NUR ---
PT MOTHER AT BEDSIDE THIS MORNING, SOCIAL WORK MET WITH PATIENTS MOTHER REGARDING [employer] ACCOUNT MATTERS. PT REMAINS IN RESTRAINTS AT THIS TIME DUE TO PREVIOUS HX OF PULLING LINES AND TRACH TUBE COMPROMISING HER MEDICAL CARE. PT FECAL MANAGEMENT SYSTEM APPEARED TO HAVE HAD A LEAK, PT CLEANED, DOUG CARE GIVEN, WILL CONTINUE TO REASSESS.
--- NOTE | 2021-04-26 15:06 | NUR ---
PT'S MOTHER WAS ASKING ABOUT NEEDING TO GET INTO THE PT'S BANK ACCTS. I CALLED CASE MANAGEMENT AND THEY CAME DOWN AND SPOKE TO THE MOTHER.
[2021-04-27] VITALS (15 sets, daily range): BP systolic 116–153; BP diastolic 65–89
[2021-04-27 04:51] LABS: CALCIUM 8.5 mg/dL (8.5-10.1); CREATININE 0.6 mg/dL (0.6-1.0); MAGNESIUM 1.6 mg/dL (1.8-2.4); POTASSIUM 3.6 mmol/L (3.5-5.1)
--- NOTE | 2021-04-27 05:05 | NUR ---
Assumed care at 1900, pt is A&O X 4. hydromophone and ativan adm X 2 during shift for pain and anxiety. Pt makes frequent call light calls to RN. Pt is slowly progressing towards plan of care as evidenced by continued dependence of vent for o2 support (peep- 6, fio2- 35).
--- NOTE | 2021-04-27 11:32 | NUR ---
PT COMPLAINING THAT SHE CAN NOT URINATE. IRRIGATED GUTIERREZ, DIFFICULT AT FIRST. 480CC OF URINE PLUS 60CC SALINE ASPIRATED FROM GUTIERREZ. + URINE FLOW CLEAR YELLOW SEEN IN TUBING AND PT STATED SHE FELT BETTER.
--- NOTE | 2021-04-27 17:20 | NUR ---
[facility] HAD INDICATED THEY SHOULD BE ABLE TO ACCEPT PT ONCE MEDICAID IS ACTIVE AND THEY HAVE A BED. CM FOLLOWING.
[2021-04-28] VITALS (17 sets, daily range): BP systolic 124–159; BP diastolic 75–92
[2021-04-28 06:22] LABS: ABSOLUTE NEUTROPHILS 13.3 thou/uL (1.4-8.2); BASOPHILS 0.3 % (0.0-2.0); EOSINOPHILS 0.2 % (0.0-3.0); HEMOGLOBIN 8.2 gm/dL (12.0-15.0); LYMPHOCYTES 9.3 % (24.0-44.0); MCH 27.3 pg (26.0-34.0); MCHC 31.6 g/dL (28.0-37.0); MCV 86.4 fL (80.0-100.0); MONOCYTES 8.4 % (1.0-8.0); PLATELET COUNT 312 thou/uL (150-400); POLYS 81.8 % (36.0-66.0); RBC 3.01 mil/uL (4.20-5.00); RDW 16.7 % (10.5-14.5); WBC 16.3 thou/uL (4.0-11.0)
[2021-04-28 06:45] LABS: CREATININE 0.6 mg/dL (0.6-1.0)
[2021-04-28 08:05] LABS: ALBUMIN 1.7 g/dL (3.4-5.0); CALCIUM 8.5 mg/dL (8.5-10.1); POTASSIUM 3.6 mmol/L (3.5-5.1); TOTAL BILIRUBIN 0.1 mg/dL (0.2-1.0); TOTAL PROTEIN 7.6 g/dL (6.4-8.2)
--- NOTE | 2021-04-28 20:31 | NUR ---
RN ASSUMED PT'S CARE AT 1500-1900PM,PT IS A&OX3 ( PERSON, PLACE AND TIME), PT IS ON TRACH VENTILATOR WITH O2 35%, PT 'S O2SAT AND VS ARE STABLE AT DAY SHIFT, PT'S ABD J-P TUBES ARE IN PLACE , PT DENIES PAIN AND SOB AT DAY SHIFT.
[2021-04-29] VITALS (24 sets, daily range): BP systolic 126–164; BP diastolic 74–94
--- NOTE | 2021-04-29 05:01 | NUR ---
PT CALLED OUT FREQUENTLY DURING THE NIGHT WITH CALL LIGHT. SHE OFTEN APPEARS VERY ANXIOUS AND RESTLESS. PRN ATIVAN GIVEN. PT ALSO C/O ABDOMINAL PAIN AND OCCASSIONAL NAUSEA. PRN MORPHINE AND ZOFRAN GIVEN WITH SOME RELIEF. TF INFUSING VIA PEG TUBE. MINIMAL RESIDUALS NOTED. COMPLETE BED BATH GIVEN. BARRER CREAM APPLIED TO WOUNDS ON LEFT BUTTOCKS AND DOUG-RECTAL AREAS. JAZLYN DRAINS INTACT WITH SMALL AMOUNTS OF OUTPUT NOTED. PT REMAINS TRACHED, ON VENT WITH 35% FIO2. NOT PROGRESSING WELL TOWARD POC GOALS. WILL MONITOR FURTHER.
[2021-04-29 14:46] LABS: HEMATOCRIT 26.5 % (37.0-47.0); HEMOGLOBIN 8.2 gm/dL (12.0-15.0); MCH 26.3 pg (26.0-34.0); MCHC 30.8 g/dL (28.0-37.0); MCV 85.4 fL (80.0-100.0); PLATELET COUNT 281 thou/uL (150-400); RDW 16.7 % (10.5-14.5); WBC 15.2 thou/uL (4.0-11.0)
[2021-04-29 14:58] LABS: ALBUMIN 1.8 g/dL (3.4-5.0); CALCIUM 8.4 mg/dL (8.5-10.1); CREATININE 0.6 mg/dL (0.6-1.0); POTASSIUM 3.7 mmol/L (3.5-5.1); TOTAL BILIRUBIN 0.2 mg/dL (0.2-1.0); TOTAL PROTEIN 7.8 g/dL (6.4-8.2)
[2021-04-29 16:05] LABS: ABSOLUTE NEUTROPHILS 12.5 thou/uL (1.4-8.2); ATYPICAL LYMPHS 2 %; NUCLEATED RBCS 2 /100WBC
[2021-04-29 16:06] LABS: ANISOCYTOSIS 1+
[2021-04-30] VITALS (24 sets, daily range): BP systolic 121–165; BP diastolic 71–95
--- NOTE | 2021-04-30 06:00 | NUR ---
REMAINS TRACHED ABND VENTED. AWAKE SAND ALERT. PROGRESSING TOWARD GOALS POSSIBLE [facility] WITH [employer] APPROVAL.
[2021-04-30 06:50] LABS: HEMATOCRIT 26.7 % (37.0-47.0); HEMOGLOBIN 8.2 gm/dL (12.0-15.0); MCH 26.6 pg (26.0-34.0); MCHC 30.8 g/dL (28.0-37.0); MCV 86.2 fL (80.0-100.0); PLATELET COUNT 277 thou/uL (150-400); RBC 3.09 mil/uL (4.20-5.00); RDW 16.9 % (10.5-14.5); WBC 14.4 thou/uL (4.0-11.0)
[2021-04-30 07:06] LABS: ALBUMIN 1.7 g/dL (3.4-5.0); CALCIUM 8.7 mg/dL (8.5-10.1); CREATININE 0.5 mg/dL (0.6-1.0); MAGNESIUM 1.9 mg/dL (1.8-2.4); PHOSPHORUS 3.9 mg/dL (2.5-4.9); POTASSIUM 4.2 mmol/L (3.5-5.1); TOTAL BILIRUBIN 0.1 mg/dL (0.2-1.0); TOTAL PROTEIN 7.8 g/dL (6.4-8.2)
[2021-04-30 09:54] LABS: ABSOLUTE NEUTROPHILS 9.1 thou/uL (1.4-8.2); NUCLEATED RBCS 2 /100WBC; PLATELET ESTIMATE NORMAL
--- NOTE | 2021-04-30 14:54 | NUR ---
PT CONTINUES TO CALL OUT NUMEROUS TIMES A DAY OFTEN WITHIN THE 5-10X PER HR RANGE FOR VERY MINOR THINGS. PT C/O OF FEELING FULL IN THE ABD AND STATES SHE FEELS CONSTIPATED. PT TOLERATING TUBE FEEDING WELL WITH RESIDUALS UNDER 20ML. PT PRESENTLY AT 20ML/HR TUBE FEED RATE. ADEQUATE URINE OUTPUT. DR. DIAZ MET WITH PATIENT TODAY AND AGREED TO GETTING KUB OF PT ABDOMEN. ALL DRAINS REMAIN IN PLACE. PT ALSO ABLE TO SIT ON THE EDGE OF BED VERY BRIEFLY TODAY WITH PT. WILL CONTINUE TO FOLLOW POC.
[2021-05-01] VITALS (19 sets, daily range): BP systolic 114–159; BP diastolic 62–94
--- NOTE | 2021-05-01 04:42 | NUR ---
PT RESTING IN NO ACUTE DISTRESS AT THIS TIME.A/OX3.FOLLOWS COMMANDS AND ABLE TO VOICE HER NEEDS TO STAFF.PT C/O ABDOMINAL AND NAUSEA W/O VOMITING.PAIN MEDS AND ANTIEMTIC WERE ADMINISTERED W/RELIEF.NG TUBE TO LIS,TO GREEN DRAINAGE.TF ON HOLD.TPN INFUSING.JAZLYN DRAINS IN PLACE W/MINIMAL PURULENT DRAINAGE.ABD INCISIONS WITH YTLER.FMS IN PLACE.GUTIERREZ DD.ASSESSMENT COMPLETED DOCUMENTED.NO OTHER CONCERNS VOICED BT THE PT.POC IS TO DISCHARGE TO [facility] ONCE INSURANCE IS AVAILABLE.
[2021-05-01 12:29] LABS: AMYLASE 28 U/L (25-115); LIPASE 136 U/L (73-393)
--- NOTE | 2021-05-01 16:20 | NUR ---
PT'S CARE DISCUSSED DURING ICU ROUNDS THIS AM. CARE TEAM INDICATED THAT SURGERY STOPPED TUBE FEEDS AND WAS PUT TO LIS. PT CONTINUES ON TPN. DR. JONES INDICATED HE WAS GOING TO SPEAK TO SURGERY ABOUT A CONTRAST STUDY. CM INDICATED TO CARE TEAM WE ARE AWAITING HER MEDICAID TO BE ACTIVE FOR POSSIBLE ADMISSION TO [facility]. CM FOLLOWING
--- NOTE | 2021-05-01 18:41 | NUR ---
PT MOTHER VISITED AT [id number]. PT WAS PUT ON CPAP TRIAL FROM 11:30-1300. PT GOT TACHYPNIC AND WE SWITCHED HER BACK. PT HAS BEEN COMPLAINING OF ABD PAIN AFTER GIVING MEDS AND CLAMPING PEG TUBE FOR 30 MINUTES AFTER GIVING MEDICATION. PT HAS BEEN REQUESTING DILAUDID FOR PAIN CONTROL. PAIN IS A 5-6. PT RESTING COMFORTABLY CURRENTLY. WILL CONTINUE TO MONITOR.
[2021-05-02] VITALS (15 sets, daily range): BP systolic 113–172; BP diastolic 67–96
[2021-05-03] VITALS (25 sets, daily range): BP systolic 136–174; BP diastolic 83–108
[2021-05-04] VITALS (24 sets, daily range): BP systolic 104–187; BP diastolic 64–114
--- NOTE | 2021-05-04 06:39 | NUR ---
Pt. requested for anxiety and pain med at beginning of shift. She gets very anxious and needs a lot of reassurance. She slept fair during the night then anxious again when awake.Meds given with some help. Complete bed bath given this am. She has been repositioned. Max temp 100.4 orally then afebrile this am.Refused to wear SCD's though she requested PRAFO boots on then requested it off again. Kept NPO , oral care given. Peg to LIS. Maintaining O2 sat in the upper 90's on current vent settings at 30% FIO2. JAZLYN drains flushed with NS. Morphine silvade to buttocks last night then Z guard this am after bath. TPN infusing. Making some progress towards care plan goals.
[2021-05-04 07:21] LABS: ALBUMIN 1.8 g/dL (3.4-5.0); CALCIUM 8.7 mg/dL (8.5-10.1); CREATININE 0.6 mg/dL (0.6-1.0); MAGNESIUM 1.9 mg/dL (1.8-2.4); PHOSPHORUS 3.4 mg/dL (2.6-4.7); TOTAL BILIRUBIN 0.2 mg/dL (0.2-1.0)
--- NOTE | 2021-05-04 14:30 | NUR ---
PT TRACH/VENT ABLE TO MAKE NEEDS KNOW. PT C/O PAIN PRN PAIN MEDICTAION GIVEN WITH SOME REIELF. BP ELEVATED THIS AFTERNOON SCHEDULED BP MEDICATION GIVEN. MATT, FMS TO DD. TYLER TO ABD INCISION INTACT. JAZLYN DRAINS WITH PURULENT DRAINAGE NOTED. PT MOM AT BEDSIDE THIS AFTERNOON. MEDICARE IS PENDING . PT WILL TRANSFER TO [facility].
--- NOTE | 2021-05-04 16:13 | NUR ---
CM REVIEWED CHAT AND SPOKE WITH NURSING. PT'S CARE ALSO DISCUSSED IN ICU ROUNDS THIS DAY. PT CONTINUES ON VENT AT 30%. PT CONTINUES ON TPN. STILL AWAITING HER MEDICAID TO BE ACTIVE. CM TO UPDATE [facility] AND THEY HAD INDICATED SHE WOULD BE A GOOD CANDIDATE. CM FOLLOWING REGARDING DC PLANNING.
[2021-05-05] VITALS (24 sets, daily range): BP systolic 133–195; BP diastolic 77–109
[2021-05-05 06:05] LABS: BE(vivo) 4.1 mmol/L (-2 to +3); HCO3 29.3 mmol/L (22.0-26.0); PCO2 47.3 mmHg (35.0-45.0); PO2 79.7 mmHg (80.0-100.0); sO2 95.8 % (92.0-98.0)
--- NOTE | 2021-05-05 21:50 | NUR ---
SPOKE WITH Jv PERSON NP. D/T PT C/O HEADACHE, HYPERTENSIVE (170S/100S), TEMP 99.8. ORDERS RECEIVED.
[2021-05-06] VITALS (24 sets, daily range): BP systolic 95–175; BP diastolic 56–109
--- NOTE | 2021-05-06 21:00 | NUR ---
AT APPROX 2030, PT HAD EPISODE OF EMESIS, GREEN IN COLOR, MODERATE OUTPUT, ABOUT 30 MIN-1 HR AFTER MEDS ADMINISTERED INCLUDING ANTI-EMETIC. IN-LINE SUCTIONING DONE, NOTED THICK SECRETIONS, BUSTOS IN COLOR. RESPIRATOTY ROUNDED AND COMPLETED TRACH CARE AND CHANGED TUBING ONCE EMESIS SUBSIDED. AT 2100, PEG TO LIS
[2021-05-07] VITALS (22 sets, daily range): BP systolic 117–169; BP diastolic 71–116
[2021-05-07 05:19] LABS: BE(vivo) 1.3 mmol/L (-2 to +3); HCO3 27.1 mmol/L (22.0-26.0); PCO2 48.9 mmHg (35.0-45.0); PO2 68.7 mmHg (80.0-100.0); pH 7.362 (7.360-7.450)
[2021-05-07 05:20] LABS: ABSOLUTE NEUTROPHILS 7.4 thou/uL (1.4-8.2); BASOPHILS 0.4 % (0.0-2.0); EOSINOPHILS 1.7 % (0.0-3.0); HEMATOCRIT 26.5 % (37.0-47.0); HEMOGLOBIN 8.3 gm/dL (12.0-15.0); MCHC 31.3 g/dL (28.0-37.0); MCV 86.3 fL (80.0-100.0); MONOCYTES 13.1 % (1.0-8.0); PLATELET COUNT 232 thou/uL (150-400); POLYS 62.8 % (36.0-66.0); RBC 3.07 mil/uL (4.20-5.00); RDW 17.3 % (10.5-14.5); WBC 11.9 thou/uL (4.0-11.0)
[2021-05-07 05:27] LABS: ALBUMIN 1.9 g/dL (3.4-5.0); CALCIUM 8.5 mg/dL (8.5-10.1); CREATININE 0.5 mg/dL (0.6-1.0); POTASSIUM 4.3 mmol/L (3.5-5.1); TOTAL BILIRUBIN 0.2 mg/dL (0.2-1.0)
--- NOTE | 2021-05-07 16:30 | NUR ---
Awaiting pt's medicaid to become active. Cm following.
[2021-05-08] VITALS (18 sets, daily range): BP systolic 105–172; BP diastolic 54–103
[2021-05-09] VITALS (19 sets, daily range): BP systolic 126–192; BP diastolic 77–122
--- NOTE | 2021-05-09 06:57 | NUR ---
ASSUME CARE 1900. PT/VITALS STABLE. INTERMITTENT HEADACHES INDICATED WITH RELIEF FROM TYLENOL. A/O X 4. MOUTHS WORD TO COMMUNICATE NEEDS. ANXIETY NOTED WITH INCREASED HR TO 130s AND TACHYPNEA IN 50s. ANXIETY MEDS GIVEN AND PT ENCOURAGED TO TAKE SLOW DEEP BREATHS. DIARRHEA NOTED. ON TPN AND LIPDS. WILL FURTHER INVESTIGATE IF TUBE FEEDING NEEDS TO BE STARTED. STRONG COUGH EGGORT NOTED WITH COPIOUS SECRETIONS. ASSESSMENT CHATED. PROGRESSSINF MODERATELY TOWARDS POC., PLAN IS TO CONITNUE WITH ABX/NUTRITION THERAPY/MONITOR WOUND HEALING AND INFECTION, AND WORK WITH CSM FOR PLACEMENT AT [facility]. WILL CONTINUE TO MONITOR AND FOLLOW WITH POC
--- NOTE | 2021-05-09 13:01 | NUR ---
ASSUMED CARE OF PT AT 0700 PT USES HER CALL LIGHT FREQUENTLY HER SISTER AND MOTHER HAVE BEEN AT THE BEDSIDE OFF AND ON THROUGHOUT THE DAY. THE MOTHER WANTS TO KNOW WHEN HER DAUGHTER WILL BE TAKEN OFF THE VENT BECAUSE ACCORING TO HER ONCE SHE IS OFF THE VENT SHE CAN GO HOME. PT COMPLAINING OF PAIN, DR. SANTANA AT BEDSIDE AND ADDRESSING THIS ISSUE.
[2021-05-10] VITALS (24 sets, daily range): BP systolic 96–183; BP diastolic 47–108
[2021-05-10 05:42] LABS: HEMATOCRIT 27.4 % (37.0-47.0); HEMOGLOBIN 8.7 gm/dL (12.0-15.0); MCH 26.9 pg (26.0-34.0); MCHC 31.7 g/dL (28.0-37.0); MCV 84.7 fL (80.0-100.0); RBC 3.23 mil/uL (4.20-5.00); RDW 17.7 % (10.5-14.5); WBC 13.2 thou/uL (4.0-11.0)
[2021-05-10 06:10] LABS: CALCIUM 8.8 mg/dL (8.5-10.1); CREATININE 0.5 mg/dL (0.6-1.0); POTASSIUM 4.5 mmol/L (3.5-5.1)
--- NOTE | 2021-05-10 15:17 | NUR ---
CM REVIEWED CHART AND SPOKE WITH CARE TEAM THIS DAY. STILL AWAITING PT'S [place] TO BECOME ACTIVE. CM FOLLOWING WITH [facility] TRANSFER TO [facility] ONCE [place] MED[place] IS ACTIVE.
[2021-05-11] VITALS (34 sets, daily range): BP systolic 85–222; BP diastolic 45–115
--- NOTE | 2021-05-11 14:50 | NUR ---
Still awaiting pt's Medicaid to be come active. Once active anticipate transfer to [facility]. Cm following.
--- NOTE | 2021-05-11 15:56 | NUR ---
PT REMAINS VENT/TRACH, ALERT AND ORIENTED TIMES FOUR. VSS. TPN INFUSING PER ORDER. GUTIERREZ TO DD. FMS PLACED THIS SHIFT DUE TO DIARRHEA. PT DENIES PAIN AT THIS TIME. PT WORKED WELL WITH PT, BUT DID NOT WANT TO SIT ON THE EDGE OF THE BED TODAY. PT BEST FRIEND AT BEDSIDE THROUGHT THE SHIFT. PT PROGRESSING TOWRADS POC GOALS. PENDING INSURANCE APPROVAL TO BE TRANSFERRED.
[2021-05-12] VITALS (34 sets, daily range): BP systolic 129–168; BP diastolic 78–98
[2021-05-12 06:12] LABS: ABSOLUTE NEUTROPHILS 7.1 thou/uL (1.4-8.2); BASOPHILS 0.3 % (0.0-2.0); EOSINOPHILS 2.7 % (0.0-3.0); HEMATOCRIT 26.5 % (37.0-47.0); HEMOGLOBIN 8.5 gm/dL (12.0-15.0); LYMPHOCYTES 19.7 % (24.0-44.0); MCH 27.2 pg (26.0-34.0); MCHC 32.1 g/dL (28.0-37.0); MCV 84.7 fL (80.0-100.0); MONOCYTES 7.9 % (1.0-8.0); PLATELET COUNT 279 thou/uL (150-400); POLYS 69.4 % (36.0-66.0); RBC 3.13 mil/uL (4.20-5.00); RDW 17.4 % (10.5-14.5); WBC 10.3 thou/uL (4.0-11.0)
[2021-05-12 06:50] LABS: CALCIUM 9.1 mg/dL (8.5-10.1); CREATININE 0.5 mg/dL (0.6-1.0); POTASSIUM 4.4 mmol/L (3.5-5.1); TOTAL BILIRUBIN 0.2 mg/dL (0.2-1.0); TOTAL PROTEIN 8.1 g/dL (6.4-8.2)
[2021-05-13] VITALS (39 sets, daily range): BP systolic 135–183; BP diastolic 75–102
[2021-05-13 05:09] LABS: CALCIUM 8.9 mg/dL (8.5-10.1); CREATININE 0.5 mg/dL (0.6-1.0); MAGNESIUM 1.6 mg/dL (1.8-2.4); PHOSPHORUS 4.6 mg/dL (2.6-4.7); POTASSIUM 4.5 mmol/L (3.5-5.1)
--- NOTE | 2021-05-13 13:29 | NUR ---
REPORT GIVEN TO YANICK MITCHELL AT 1315 TO TAKE OVER CARE OF PATIENT
[2021-05-13 17:20] LABS: BE(vivo) 1.8 mmol/L (-2 to +3); HCO3 27.4 mmol/L (22.0-26.0); PCO2 47.3 mmHg (35.0-45.0); PO2 77.1 mmHg (80.0-100.0); sO2 95.1 % (92.0-98.0)
--- NOTE | 2021-05-13 17:56 | NUR ---
PT OVER BREATHING THE VENT AND TACYCARDIC. CONTACT DR. JONES AND OBTAIN ORDERS. START PT ON VERSED GTT. WILL CONTINUE TO ASSESS.
[2021-05-13 17:58] LABS: CREATININE 0.6 mg/dL (0.6-1.0); POTASSIUM 4.5 mmol/L (3.5-5.1)
[2021-05-13 18:32] LABS: RBC 3.36 mil/uL (4.20-5.00); WBC 14.6 thou/uL (4.0-11.0)
[2021-05-13 18:33] LABS: HEMATOCRIT 28.9 % (37.0-47.0); HEMOGLOBIN 9.1 gm/dL (12.0-15.0); MCHC 31.4 % (28.0-37.0); MCV 86.2 fL (80.0-100.0); RDW 17.8 % (10.5-14.5)
[2021-05-14] VITALS (45 sets, daily range): BP systolic 136–175; BP diastolic 83–105
[2021-05-14 05:42] LABS: BE(vivo) 2.9 mmol/L (-2 to +3); HCO3 27.9 mmol/L (22.0-26.0); PCO2 44.9 mmHg (35.0-45.0); PO2 94.3 mmHg (80.0-100.0); pH 7.411 (7.360-7.450); sO2 97.2 % (92.0-98.0)
[2021-05-14 05:49] LABS: HEMOGLOBIN 8.4 gm/dL (12.0-15.0); MCH 26.7 pg (26.0-34.0); RBC 3.14 mil/uL (4.20-5.00); RDW 17.9 % (10.5-14.5); WBC 11.1 thou/uL (4.0-11.0)
[2021-05-14 06:06] LABS: CALCIUM 8.6 mg/dL (8.5-10.1); CREATININE 0.5 mg/dL (0.6-1.0); MAGNESIUM 1.6 mg/dL (1.8-2.4); POTASSIUM 4.5 mmol/L (3.5-5.1)
--- NOTE | 2021-05-14 09:01 | NUR ---
0845: PT'S NIECE AT BEDSIDE TO VISIT. UPDATED HER ON CURRENT POC.
--- NOTE | 2021-05-14 12:05 | NUR ---
SPOKE WITH DR. DIAZ OVER THE PHONE ABOUT PT LEFT SIDED JAZLYN DRAIN LEAKING AROUND INCISION SITE AND HE STATED THAT IT WAS A NORMAL FINDING AT THIS TIME, AND UPDATED HIM ON THE BANDAGE THAT IS SECURING THE DRAIN IN THE PLACE AND HE IS OK WITH PLACING A CLEAR TAGADERM DRESSING OVER THE SITE. I AM ATTEMPTING TO TITRATE PT VERSED GTT DOWN/OFF TO SEE IF PT RESPIRARTOY RATE WILL REMAIN WITHIN NORMAL LIMITS FOR THE PATIENT.
--- NOTE | 2021-05-14 17:02 | NUR ---
STILL NO INDICATIONG THAT PT'S [place] IS ACT[place]. CARE TEAM WERE TO REACH OUT TO SURGERY TEAM TO DISCUSS POSSIBLE NEED FOR ADDTIONAL ABD IMAGINING. CM FOLLOWING.
[2021-05-15] VITALS (10 sets, daily range): BP systolic 137–173; BP diastolic 87–102
[2021-05-15 04:32] LABS: CREATININE 0.5 mg/dL (0.6-1.0); POTASSIUM 4.3 mmol/L (3.5-5.1)
[2021-05-15 04:51] LABS: MCH 26.8 pg (26.0-34.0); MCHC 31.1 g/dL (28.0-37.0); MCV 86.4 fL (80.0-100.0); RBC 3.35 mil/uL (4.20-5.00); RDW 18.1 % (10.5-14.5); WBC 11.9 thou/uL (4.0-11.0)
--- NOTE | 2021-05-15 15:55 | NUR ---
pt worked with physical therapy, then sat up in bed in chair-like position leaning to her right side for about 2 hrs. then occupational therapy present to work with her, pt sat on edge of bed for 15 minutes and continued her exercises with OT assist. back to bed again on leaning to right side in chair-like position. martín remains calm, pleasant, well tolerated with resp rate in upper 30's.
--- NOTE | 2021-05-15 16:26 | NUR ---
Cm reviwed chart and spoke with nurse. Pt's care discussed during icu rounds this day. Care team indicated that pt is back on a little sedation. Surgery asked to assess possible staple removal and drains. Pt continues on TPN. Care team indicated they check with surgery about reinitating tube feeds. Stll awaiting Pt's medicaid to become active. Cm following.
[2021-05-16] VITALS (12 sets, daily range): BP systolic 143–174; BP diastolic 92–116
[2021-05-16 05:48] LABS: CALCIUM 9.1 mg/dL (8.5-10.1); CREATININE 0.5 mg/dL (0.6-1.0); PHOSPHORUS 4.7 mg/dL (2.5-4.9); POTASSIUM 4.2 mmol/L (3.5-5.1)
--- NOTE | 2021-05-16 16:15 | NUR ---
[facility] updates administration daily on progress with medicaid DCN number. At this time cont to await verification.
--- NOTE | 2021-05-16 20:23 | NUR ---
PT IS PROGRESSING TOWARDS DISCHARGE, CURRENTLY AWAITING MEDICARE APPROVAL, DAY 97 OF ADMISSION, PT AT THIS TIME IS TOLERATING THE VENT SETTING VERY WELL NO ISSUES. WITH CONCURRENT USE OF VERSED AND CLEAR INSTRUCTIONS/PLAN FOR THE DAY, PT IS ABLE TO PARTICIPATE IN CARE WITHOUT ANXIETY AND HAS BEEN ABLE TO REST. PT ABLE TO GET UP TO THE EDGE OF THE BED WITH PT/OT WORK, WAS ABLE TO BRUSH OWN TEETH AND RN HAS BEEN INSTRUCTING PT TO DO MUCH POSSIBLE ON OWN IN ORDER TO GET BETTER PRIOR TO TRANSFER/DISCHARGE. PT AGREED TO CARE PLAN. PT IS TO INIATE TRICKLE FEEDING PER MD'S ORDERS, NO OTHER ISSUES AT THIS TIME NOTED. WILL RECOMMEND TO ANGLE ROLL OPERATOR TO SEE IF PT CAN ADVANCE FROM VENTILATOR SETTING WHEN POSSIBLE. RN SIGNING OFF
[2021-05-17] VITALS (26 sets, daily range): BP systolic 126–179; BP diastolic 75–118
--- NOTE | 2021-05-17 04:09 | NUR ---
PT SLEPT MOST OF THE NIGHT. RR REMAINED IN THE 30S. TOLERATING VENT SETTINGS WELL. GUTIERREZ TO DD WITH GOOD URINE OUTPUT. PRN HYDRALAZINE AND SCHEDULED METOPROLOL GIVEN FOR HTN. BP IMPROVED WITH MEDICATIONS. TRICKLE TF INFUSING VIA PEG TUBE. TPN INFUSING WELL. WILL CONTINUE TO MONITOR PT FURTHER.
--- NOTE | 2021-05-17 10:08 | NUR ---
PT ABLE TO WITHSTAND APPROX 5 MINS OF BEING OFF THE VENTILATOR BREATHING ON HER OWN THIS MORNING WITH LOWEST OXYGEN SATURATION BEING 92% AND RR REMAINED WITIN NORMAL LIMITS FOR THE PATIENT OF 28-36. RT AND RN AT BEDSIDE DURING WEANING TRIAL, PT ABLE TO GIVE THE THUMBS UP AND APPEARED TO BE IN NO DISTRESS DURING BRIEF TRIAL, MAY SUGGEST TRACH SHIELD DURING THE DAY AND POSSIBLE VENT USE AT NIGHT. PT WORKING WITH PT AT THIS MOMENT SITTING UPRIGHT ON THE EDGE OF THE BED. WILL CONTINUE TO PROMOTE PT ACTIVITY TOLERATED AND FOLLOW POC.
--- NOTE | 2021-05-17 14:57 | NUR ---
Cm reviewed chart and spoke with nurse. Pt care discussed during icu rounds this day. Pt is on Avycaz 6 and Micafungin. ID indicated that they anticpate 1 days of ibx treatment. Pt remains on vent fio2 30% peep 6. Pt continues on TPN. Pt was initiated on trickel feeds via peg vital hp. Care team indicated that pt had sat eob with PT and Ot. Care team were to possibly trial pt on trach shield this day. Still awaiting a DCN number for pt to transition to LTAC level of care at [facility]. Cm following. .
[2021-05-18] VITALS (21 sets, daily range): BP systolic 97–148; BP diastolic 52–90
--- NOTE | 2021-05-18 06:55 | NUR ---
NO SIGNIFICANT CHANGES DURING THE NIGHT. PT SLEPT MOST OF THE NIGHT. TOLERATING VENT WELL. RR LOW 30S WHEN SLEEPING. PT LESS ANXIOUS WITH VERSED GTT INFUSING. TRICKLE TF VIA PEG TUBE. RESIDUALS < 60ML ALL SHIFT. PT HAD ONE EPISODE OF N/V DUE TO SEVERE COUGHING. ZOFRAN GIVEN WITH GOOD RELIEF. TPN INFUSING VIA CENTRAL LINE. VSS. HTN BETTER CONTROLLED THIS SHIFT. PT WAS ABLE TO HELP DO HER OWN ORAL CARE THIS MORNING. PROGRESSING SLOWLY TOWARD POC GOALS. REPORT GIVEN TO ONCOMING NURSE.
--- NOTE | 2021-05-18 10:27 | NUR ---
PT STARTED ON T-PIECE TRACH SHIELD AT 35% OXYGEN AT 1020. PT RESTING COMFORTABLY (SLEEPING) AT THIS TIME WITH OXYGENATION READING 100% AND RR BETWEEN 23-28 BPM. WILL CONTINUE TO MONTIOR AND REASSESS NEED FOR VENTILATOR.
[2021-05-19] VITALS (7 sets, daily range): BP systolic 142–161; BP diastolic 84–98
[2021-05-19 06:09] LABS: ALBUMIN 2.1 g/dL (3.4-5.0); CALCIUM 8.9 mg/dL (8.5-10.1); CREATININE 0.6 mg/dL (0.6-1.0); MAGNESIUM 1.8 mg/dL (1.8-2.4); POTASSIUM 4.5 mmol/L (3.5-5.1); TOTAL BILIRUBIN 0.2 mg/dL (0.2-1.0); TOTAL PROTEIN 7.9 g/dL (6.4-8.2)
[2021-05-20] VITALS (12 sets, daily range): BP systolic 135–174; BP diastolic 83–105
[2021-05-20 06:22] LABS: CALCIUM 9.1 mg/dL (8.5-10.1); CREATININE 0.5 mg/dL (0.6-1.0); MAGNESIUM 1.9 mg/dL (1.8-2.4); PHOSPHORUS 4.6 mg/dL (2.6-4.7); POTASSIUM 4.4 mmol/L (3.5-5.1)
[2021-05-21] VITALS (7 sets, daily range): BP systolic 146–175; BP diastolic 90–99
--- NOTE | 2021-05-21 06:00 | NUR ---
AWAKE AND ALERT TRACHED ON T TUBE 35% O2 GINA WELL SUCTIONED FOR A MOD SECRETIONS. SLEPT AT INTERVALS TONIGHT. ABD JAZLYN DRAINS INTACT. PT LOOKS SO MUCH BETTER. PROGRESSING TOWARD GOALS. REMAINS A MED SURG TELE OVERFLOW
[2021-05-21 06:56] LABS: CALCIUM 9.2 mg/dL (8.5-10.1); CREATININE 0.5 mg/dL (0.6-1.0); MAGNESIUM 1.8 mg/dL (1.8-2.4); PHOSPHORUS 4.5 mg/dL (2.5-4.9); POTASSIUM 4.4 mmol/L (3.5-5.1)
--- NOTE | 2021-05-21 09:33 | NUR ---
Patient worked with PT and sat on side of bed.
--- NOTE | 2021-05-21 09:45 | NUR ---
pt has been tolerating trickle feeds at 10ml/hr, so would trial slight increase to 15ml/hr.
--- NOTE | 2021-05-21 15:39 | NUR ---
Rec'd message that [place]'s [place] has been [place]. Awaiting confirmation and DCN. Clinical updated faxed to [facility] and notice of ins called to their liason. They do not have a bed at present but expect some dc's this week. He is not sure if they will be able to accept another [place] pt but will check with the business office as they have taken several recently. Awaiting updated facesheet. Pt is medically stable to dc to ltac and is progressing. She is working with therapy, continues on tpn with trickle feedings per peg and is on 30% o2 per t-tube. Will follow.
[2021-05-22 00:40] VITALS: BP 126/75
--- NOTE | 2021-05-22 06:00 | NUR ---
PT AWAKE AND ALERT. LOOKS GREAT! TRACH TO T TUBE 35% O2 EXCELLENT PRODUCTIVE COUGH. AWAITING A BED AT [facility], [facility] WAS APPROVED PROGRESSING TOWARD GOALS
[2021-05-22 12:59] VITALS: BP 165/101
--- NOTE | 2021-05-22 15:34 | NUR ---
Pt's mother Jessi updated on [place] and LTAC level of care and options discussed. She would like to speak to the attending as she does not feel pt is ready to tranfer to an LTAC and notes she had a family member at [facility]. LTAC options/limitations with ins plan discussed. [facility] ltac will review but take limited number of [place] pts. [facility] does not accept [place] medicaid referrals at all. [facility] is reviewing her clinical and not certain when they will have a bed. Pt is working with therapy and off the vent and on 30% o2 per T tube. She continues on TPN with trickle tube feedings and drain care. Message sent to the attending. Referral faxed to [facility] for consideration. Will follow.
[2021-05-22 17:43] VITALS: BP 165/98
[2021-05-22 22:04] VITALS: BP 166/95
[2021-05-22 23:00] VITALS: BP 165/102
[2021-05-23 05:14] VITALS: BP 178/109
[2021-05-23 11:27] VITALS: BP 162/90
--- NOTE | 2021-05-23 13:43 | NUR ---
PT'S [place]ICA[place] BECAME ACTIVE 05/21. UPDATES WERE SENT TO [facility]. THEY HAD INDICATED THAT THEY DON'T HAVE ANY [place] BEDS AT THIS MOMENT. CM HAD PREVIOUSLY INFORMED PT AND HER MOTHER AT BEDSIDE AND OVER PHONE THAT NEXT LEVEL OF CARE IS LTAC AND THAT REFERRALS HAD BEEN SENT TO ALL THREE [facility], [facility], AND [facility]. FAMILY AND PT WANTED [facility] IT'S CLOSEST TO HERE. CM HAD INFORMED THEM THAT THE ONLY FACILITY WHO HAD INDICATED THEY WERE ABLE TO ACCEPT PT WAS [facility]. THEY HAD INIDCATED NO RESISTANCE TO DC TO [facility] PREVIOUSLY.. MOTHER NOW REFUSING DC TO [facility] THEY HAD A FAMILY MEMEMBER PASS THERE. DR. ROMANO CALLED AND SPOKE WITH PT'S MOTHER AND EXPLAINED LEVELS OF CARE. DR. ROMANO WAS GOING TO SPEAK TO N PHYSICIAN TO SEE IF THEY WOULD CONSIDER POSSIBLY ACCEPTING PT. CM FOLLOWING.
[2021-05-23 18:17] VITALS: BP 173/99
[2021-05-23 18:25] VITALS: BP 173/99
--- NOTE | 2021-05-23 18:35 | NUR ---
mother present today, providing support to pt. pt sat on bedside for 23 minutes today and performed exercises while seated. had 2 loose stools, one large and one moderate. zofran administered for nausea, tube feeding off for a couple of hours then restarted. nausea resolved. tylenol for generalized discomfort x 1 with relief. progressing for transfer to rehab facility.
[2021-05-24 07:02] LABS: CREATININE 0.5 mg/dL (0.6-1.0); MAGNESIUM 1.6 mg/dL (1.8-2.4); PHOSPHORUS 4.5 mg/dL (2.5-4.9); POTASSIUM 4.2 mmol/L (3.5-5.1)
--- NOTE | 2021-05-24 11:02 | NUR ---
ASSUMED CARE OF PT AT 0700 PTS MOTHER AT BEDSIDE AT 0830 PT WORKED WITH PT/OT AND STOOD AT THE SIDE OF THE BED WITH ASSISTANCE FOR 10 SECONDS. PER OT THEY ARE TRYING TO GET THE PT INTO THE REHAB UNIT UPSTAIRS.
--- NOTE | 2021-05-24 11:21 | NUR ---
Clinical updated faxed to admissions at [facility]. They have have a bed for the pt this weekend and will submit [place] auth. Care team updated. Pt could [facility] with o2 per [facility] [phone] as she is still too weak to tolerate the ride in a w/c. Chart copy will be needed and report called to [phone]. [facility] is following along for possible acute rehab admission once she is able tolerate increased hours of therapy.
--- NOTE | 2021-05-24 15:44 | NUR ---
50 year old female remains on 35% trach shield and updates sent to [facility] for possible transfer today or tomorrow. Spoke with mother Jessi Robles at [phone] to update on plan for discharge as soon as LTAC has bed available. ANDRZEJ in faxed to admission at [facility] this AM updates and that [facility] stret[facility] for transport can be called at [phone] once [facility] calls to the nurses station and has a bed to accept. Once that time is confirmed nursing to then call report to [facility] at [phone]. CM will follow.
[2021-05-24 23:22] VITALS: BP 154/82
[2021-05-25 00:06] VITALS: BP 152/91
--- NOTE | 2021-05-25 04:28 | NUR ---
PT RESTING IN NO ACUTE DISTRESS.A/OX3.VOICES NEEDS.TOLERATING TRACH SHIELD,ON FIO2 OF 35%.PLAN TO DISCHARGE TO REHAB OR SNF THIS WEEKEND.
[2021-05-25 06:01] VITALS: BP 167/101
[2021-05-25 08:41] VITALS: BP 155/86
--- NOTE | 2021-05-25 10:02 | NUR ---
recommend increase tube feed rate to trial of 30ml/hr since pt has been tolerating. Spoke with pharmacy and tpn rate will decrease to 60ml/hr
[2021-05-25 12:29] VITALS: BP 152/94
--- NOTE | 2021-05-25 15:52 | NUR ---
PT MOTHER AT BEDSIDE THIS MORNING, UPDATED HER ON OVERNIGHT EVENTS AND PROGRESS. FAMILY IS VERY SUPPORTIVE AND APPROPRIATE AND ENCOURAGES PATIENT TO PARTICIPATE IN DAILY CARES.
[2021-05-25 17:39] VITALS: BP 161/97
[2021-05-25 20:35] VITALS: BP 151/89
[2021-05-26 05:06] VITALS: BP 165/96
[2021-05-26 05:25] VITALS: BP 150/94
--- NOTE | 2021-05-26 06:24 | NUR ---
PATIENT AAOX4 RESTING IN BED. PATIENT HAS TRACH IN PLACE. COUGHING UP THICK SECRETIONS. TOLERATES SUCTIONING WELL. TPN AND TUBE FEEDING INFUSING. COMPLAINED OF DIFFICULTY SLEEPING AND A HEADACHE. PRN TYLENOL ADMINISTERED FOR HEAD. PRN ATIVAN ADMINISTERED FOR ANXIETY/RESTLESSNESS. PATIENT HAS [address] THAT ARE PATENT[address] CONTINUE TO HAVE SOME ISSUES WITH HER B/P. NO S/S OF DISTRESS NOTED. WILL CONTINUE TO MONITOR.
[2021-05-26 06:27] LABS: HEMATOCRIT 28.5 % (37.0-47.0); MCH 27.1 pg (26.0-34.0); MCHC 31.5 g/dL (28.0-37.0); MCV 85.9 fL (80.0-100.0); RBC 3.32 mil/uL (4.20-5.00); RDW 17.2 % (10.5-14.5); WBC 6.2 thou/uL (4.0-11.0)
[2021-05-26 07:11] LABS: ALBUMIN 2.3 g/dL (3.4-5.0); CALCIUM 9.2 mg/dL (8.5-10.1); CREATININE 0.5 mg/dL (0.6-1.0); MAGNESIUM 1.8 mg/dL (1.8-2.4); PHOSPHORUS 4.7 mg/dL (2.5-4.9); POTASSIUM 4.4 mmol/L (3.5-5.1)
[2021-05-26 08:19] VITALS: BP 164/103
[2021-05-26 13:30] VITALS: BP 151/87
[2021-05-26 21:14] VITALS: BP 157/95
[2021-05-27 01:31] VITALS: BP 150/81
--- NOTE | 2021-05-27 07:15 | NUR ---
Pt is progressing towards plan of care. Pt is awaiting SNF placement. Assessments as charted.
[2021-05-27 08:29] VITALS: BP 154/98
[2021-05-27 08:36] VITALS: BP 161/99
[2021-05-27 14:42] VITALS: BP 139/96
[2021-05-27 20:00] VITALS: BP 139/96
--- NOTE | 2021-05-28 03:02 | NUR ---
PROGRESS PT A/O X4. ABLE TO MAKE NEEDS KNOWN. REPOSITIONED FREQUENTLY. PT C/O HEADACHE AT A LEVEL OF 5 AND TYLENOL GIVEN WITH SOME EFFECT RATING IT A 3 AFTER. PT HAVING DIFFICULTY GETTING TO SLEEP REQUESTED ATIVAN AND GIVEN WITH SLIGHT EFFECT. GUTIERREZ INTACT. 4 JAZLYN'S WITH VARIED DRAINAGE NOTED ONE CLEAR, ONE SEROUS, AND ONE SEROSANGUINOUS, AND ON EMPTY. VSS. TELEMETRY INTACT READING ST WITH RATES IN 90'S TO LOW 100'S. PEG TUBE IN PLACE AND VITAL AF INFUSING AT 30CC/HR PT REPORTED SLIGHT NAUSEA AND FEELING FULL. TUBE FEED TURNED OFF FOR 2 HOURS AND ZOFRAN GIVEN PT VERBALIZED RELIEF. CHECKED FOR RESIDUAL AND 60CC NOTED AND RETURNED TUBE FEEDING RESTARTED. CONTINUE TO MONITOR.
[2021-05-28 07:55] VITALS: BP 158/97
[2021-05-28 13:27] VITALS: BP 144/84
--- NOTE | 2021-05-28 15:44 | NUR ---
Chart review. Discussed during los with the attending physician and during unit rounds with pulmonary MD. Trach and peg. tapering down on tpn and increased peg tube feeding as ordered. Will cont. following as needed. Updates sent to [facility], per liaison not been approved to take [place] and will has to have administration review.
[2021-05-28 21:26] VITALS: BP 133/94
[2021-05-28 23:50] VITALS: BP 130/71
[2021-05-29 05:08] LABS: CALCIUM 9.1 mg/dL (8.5-10.1); CREATININE 0.5 mg/dL (0.6-1.0); MAGNESIUM 1.7 mg/dL (1.8-2.4); PHOSPHORUS 5.2 mg/dL (2.5-4.9); POTASSIUM 4.4 mmol/L (3.5-5.1)
[2021-05-29 06:03] VITALS: BP 145/91
--- NOTE | 2021-05-29 11:46 | NUR ---
ICU rounds: changing formula to vital AF 1.2 with goal 70ml/hr. Increase tube feed rate by 10ml/hr per day until goal is reached. TPN will decrease to 40ml/hr today and is being taper off by pharmacy as tube feed rate is increased.
--- NOTE | 2021-05-29 14:42 | NUR ---
Cm notified by [facility] liaison that unfortunately they have deny due to cost of care. Spoke with [facility] acute rehab [facility], they are following, have not denied her, she will need to be off TPN and oxygen needs less than 10L. Will cont following as needed for dc needs.
--- NOTE | 2021-05-29 15:21 | NUR ---
PT IS PROGRESSING TOWARDS DISCHARGE, PER NOTES PT IS NOT ACCEPTED TO [facility] DUE TO INACCEPTANCE OF [place] MEDICAID, RN SPOKE WITH STAFF FROM [facility] AND IF/WHEN PT MEETS THE FOLLOW CATEGORIED: O2 SUPPLEMENT <10L, OFF OF TPN PT MAY BE ABLE TO GO TO REHAB PT WAS ABLE TO PARTICIPATE IN PT/OT TODAY AND TIRED AFTERWARDS AND SLEEPING SOUNDLY. RN DISCUSSED GOALS WITH PATIENT AT THE BEGINNING OF THE SHIFT WHICH IS TO MOVE AROUND AND PERFORM MUCH SELF CARE DUTIES POSSIBLE. PT UNDERSTOOD AND ACTIVELY WORKING TOWARDS GOAL POSSIBLE. TUBE FEEDING IS BEING TOLERATED, THE TREATMENT PLAN IS TO INCREASE TF RATE BY 10 AND DECREASE TPN BY 10 EVERYDAY LONG TUBE FEEDING IS TOLERATED. O2 DEMAND CAN PROBABLY LESSEN GIVEN PT'S PRESENTATION RN WILL WORK WITH RT REGARDING THIS MATTER. NO ACTIVE COMPLAINTS FROM PATIENT; PT DOES CALL OUT WITH NEEDS IT COMES UP AND RN/STAFF MEMBER ALIKE ASSISTING WITH PROVIDING COMFORT TO THE PATIENT. RN CONTINUING TO MONITOR AT THIS TIME. FAMILY WAS UPDATED AT BEDSIDE THIS MORNING
[2021-05-29 21:34] VITALS: BP 141/83
[2021-05-30 08:52] VITALS: BP 155/102
[2021-05-30 12:01] VITALS: BP 139/76
[2021-05-30 12:02] VITALS: BP 125/71
--- NOTE | 2021-05-30 13:28 | NUR ---
Discussed during los phone call with the attending physician and during unite rounds with pulmonary MD. [facility] is still following and she will need to be on 8L or less and off TPN for acute [facility] re[facility]. CM spoke with her mom darcy via phone call, no needs or concerns voiced. Will cont following as needed.
--- NOTE | 2021-05-30 17:37 | NUR ---
PATIENT PROGRESSING TOWARDS THE PLAN OF CARE. OFF TPN TO POSSIBLE TRANSFER TO [facility]. TUBE FEEDINGS BEING TOLERATED WELL BY THE PT. PATIENT UNDER 8L ON TRACH SHIELD THROUGHOUT THE ENTIRE DAY.
[2021-05-30 21:11] VITALS: BP 144/91
[2021-05-31 00:16] VITALS: BP 141/91
[2021-05-31 04:00] VITALS: BP 136/91
--- NOTE | 2021-05-31 05:29 | NUR ---
PT BEEN RESTING IN NO ACUTE DISTRESS.VSS.DENIES PAIN.TOLERATING HIGH FLOW VIA TRACH ADAPTER.PLAN TO TRANSFER TO REHAB [facility].
[2021-05-31 08:47] VITALS: BP 179/104
[2021-05-31 08:54] VITALS: BP 150/95
--- NOTE | 2021-05-31 16:07 | NUR ---
Patient transfered to CCU 203. Patient's mother notified of transfer, new room number, and status. All belongings sent with patient. Patient oriented to new room, transfered to tele/O2, and resting comfortably in bed. Jazmín HERNDON at bedside.
[2021-05-31 16:09] VITALS: BP 144/93
--- NOTE | 2021-05-31 16:24 | NUR ---
[facility] liason called indicating they are working [place];however pt now identifed as having a [facility] medicaid plan. Ins info provided to the liason to submit auth request. Pt is now on CCU and off TPN. Continuing to work with therapy. Pt accepted to acute rehab once ins auth is in place.
--- NOTE | 2021-05-31 16:48 | NUR ---
PATIENT HAS [facility] COMMUNITY MEDICAID PLAN. WAS ABLE TO CONTACT [facility] AND SPOKE WITH ANASTASIYA Lisa TO REQUEST AUTHORIZATION FOR ACUTE INPATIENT REHAB. REF #[id number]. AWAITING REQUEST FROM [facility] FOR CLINICAL INFORMATION TO ACCOMPANY AUTHORIZATION REQUEST.
[2021-05-31 19:59] VITALS: BP 141/84
[2021-06-01 03:23] LABS: HEMATOCRIT 31.9 % (37.0-47.0); MCH 27.2 pg (26.0-34.0); MCHC 31.5 g/dL (28.0-37.0); MCV 86.3 fL (80.0-100.0); RBC 3.69 mil/uL (4.20-5.00); RDW 16.6 % (10.5-14.5)
--- NOTE | 2021-06-01 04:22 | NUR ---
PT IS A/O X4 AND IS ON BEDREST. MEDICATIONS GIVEN PER PEG DIRECTED. VSS. AFEBRILE. SR/ST ON THE MONITOR. BRTX GIVEN DIRECTED. GUTIERREZ IN PLACE DRAINING YELLOW URINE. NO BM THIS SHIFT. DENIES C/O PAIN. REPOSITIONED PT OFTEN FOR COMFORT LEVEL. JAZLYN DRAINS IN PLACE. NO OUT PUT FOR THEM THIS SHIFT. FALL PRECUATIONS IN PLACE. PT CALLS OUT APPROPRIATELY FOR ASSISTANCE. CALL LIGHT IS WITHIN REACH
[2021-06-01 04:49] LABS: ALBUMIN 2.7 g/dL (3.4-5.0); CALCIUM 9.5 mg/dL (8.5-10.1); CREATININE 0.6 mg/dL (0.6-1.0); POTASSIUM 3.9 mmol/L (3.5-5.1)
[2021-06-01 07:30] VITALS: BP 156/100
[2021-06-01 11:10] VITALS: BP 144/92
[2021-06-01 15:03] VITALS: BP 134/85
--- NOTE | 2021-06-01 16:00 | NUR ---
CHART REVIEWED AND DISCUSSED WITH CARE TEAM. PT NO LONGER ON TPN. PT HAS BEEN APPROVED TO [facility]. AWAITING INS AUTH. ONCE APPROVED. PT READY TO DC TO [facility].
--- NOTE | 2021-06-01 16:06 | NUR ---
RECEIVED MESSAGE FROM [facility]. PT INS AUTH DENIED AND REPORTED OXYGEN REQUIREMENTS ARE TO HIGH. THEY ARE REQUESTING A PEER TO PEER. UNABLE TO MAKE HAPPEN TODAY. RENE WORKING WITH DR ALVAREZ FOR PEER TO PEER ON FRIDAY. PATIENT WILL REMAIN ON [facility] OVER THE WEEKEND. PT DOES NOT REQUIRE HIGH LEVEL OF OXYGEN SHE REQUIRES HIGH LEVELS OF HUMIDIFIATION. DR Aguero TO CLARIFY IN PEER TO PEER ON FRIDAY.
--- NOTE | 2021-06-01 16:09 | NUR ---
PATIENT'S INSURANCE CALLED WITH DENIAL FOR ACUTE REHAB STAY. REASON FOR DENIAL WAS THAT PATIENT WAS ON TOO HIGH OF A LEVEL OF O2. REFERENCE NUMBER [id number]. TOILET ATTENDANT DR. LAU. REASON FOR DENIAL: O2 CONSUMPTION IS TOO HIGH. PEER TO PEER ARRANGED FOR FRIDAY [facility] DR. MENENDEZ. D/C COAL TRIMMER AND UM INFORMED.
[2021-06-01 20:07] VITALS: BP 130/90
--- NOTE | 2021-06-02 00:40 | NUR ---
complained of some nausea at bedtime. zofran effective for control. unable to allow to rest at night, and not be disturbed based on providers orders. continues on vital af tube feeding. patient is good about asking for turns.
[2021-06-02 04:21] VITALS: BP 152/83
[2021-06-02 08:32] VITALS: BP 128/86
[2021-06-02 11:51] VITALS: BP 127/82
--- NOTE | 2021-06-02 12:57 | NUR ---
AT 1215 I PLACED THIS PATIENT ON A SPEAKING VALVE. I MONITORED HER OXYGEN WHILEIN THE ROOM AND THEN BEFORELEAVING THE UNIT. SHE IS STILL ON HER 35% TRACH SHIELD FOR HUMIDITY WITH A SATURATION OF 100%. NOTIFIED DR JONES THAT PATIENT IS TOLERATING SPEAKING VALVE WELL.
[2021-06-02 15:21] VITALS: BP 102/70
--- NOTE | 2021-06-02 16:38 | NUR ---
ASSESSMENT CHARTED - MEDS PER JUL - GIVEN PAIN MEDS X 1 FOR CO'S OF PAIN IN BACK WITH GOOD RELIEF. PT REMAINS ON TRACH SHIELD - SPEAKIN VALVE PLACED ON TRACH TODAY. PT WHISPERS TO SPEAK. PEG TUBE FEEDING CONTINUE - FEEDING BAG CHANGED THIS SHIFT - GINA TUBE FEEDINGS. PT TURNED SHE REQUESTED - CREAM/ BARRIER PLACED TO BUTTOCKS. DRAINS X 4 TO ABDO WITH MIN DRAINAGE IN EACH - INCISION TO ABDO INTACT - HEALING. PT WITH NO CO'S AT THE PRESENT TIME - APPEARS TO BE RESTING COMFORTABLY.
[2021-06-02 19:44] VITALS: BP 136/90
[2021-06-03 03:28] VITALS: BP 125/82
[2021-06-03 08:28] VITALS: BP 121/97
[2021-06-03 11:54] VITALS: BP 134/76
[2021-06-03 15:13] VITALS: BP 98/55
--- NOTE | 2021-06-03 17:59 | NUR ---
ASSESSMENT CHARTED - MEDS PER MAR - GIVEN PAIN MEDS X 2 DOSES FOR BACK PAIN AND ZOFRAN X 1 DOSE FOR CO'S OF NAUSEA. PT TURNED REQUESTED - MOUTH CARE GIVEN. CREAM TO BUTTOCKS. DUE TO NAUSEA - TUBE FEEDING TURNED OFF AND CHECKED FOR RESIDUAL - NO RESIDUAL NOTED. SUCTIONED X 3 TODAY - MOD AMOUNT OF THICK WHITE SPUTUM BLOOD TINGED EACH TIME. CONT PULSE OX -SAT IN THE UPPER 90'S. JAZLYN DRAIN X 4 WITH SCAN DRAINAGE. ACCUCHECKS CHARTED - COVERED PER SSI. PT APPEARS TO BE RESTING COMFORTABLY AT THE PRESENT TIME,
[2021-06-03 19:35] VITALS: BP 122/77
[2021-06-04 04:23] VITALS: BP 123/80
[2021-06-04 07:39] VITALS: BP 130/88
[2021-06-04 09:49] LABS: CALCIUM 9.6 mg/dL (8.5-10.1); CREATININE 0.7 mg/dL (0.6-1.0); POTASSIUM 3.9 mmol/L (3.5-5.1)
[2021-06-04 11:15] VITALS: BP 130/87
--- NOTE | 2021-06-04 14:31 | NUR ---
TOOK OVER CARE OF THIS PATIENT AT 0700. PT SLEEPING IN BED AT THIS TIME. ASSESSMENTS CHARTED; VSS; DENIES ANY PAIN. PT CONTINUES TO HAVE 7 SHILEY WITH 35% ON TRACH SHIELD. PT SUCTIONED PRN; THICK WHITE/BRUMFIELD MUCUS SUCTIONED. PT DENIES PAIN AT THIS TIME. PT RESTING COMFORTABLY; TURNS Q2 HOURS. FEEDING INFUSING AT GOAL RATE. DENIES ANY OTHER NEEDS AT THIS TIME.
[2021-06-04 15:50] VITALS: BP 136/86
--- NOTE | 2021-06-04 16:19 | NUR ---
RECEIVED MESSAGE FROM [facility]. PEER TO PEER TO TAKE PLACE TOMORROW FROM 0015-1014 FOR INS AUTH. CM FOLLOWING.
[2021-06-05 04:45] VITALS: BP 149/107
[2021-06-05 08:05] VITALS: BP 131/85
--- NOTE | 2021-06-05 09:46 | NUR ---
TOOK OVER CARE OF THIS PATIENT AT 0700. PT RESTING IN BED AT THIS TIME. PT DENIES ANY PAIN; COMPLAINT OF FEELING ITCHY APPLIED LOTION TO LEGS. DENIES SOA OR CHEST PAIN. TUBE FEEDING GOING AT 50/HOUR DUE TO PATIENT'S COMPLAINTS OF NAUSEA AND VOMITING. PT DENIES ANY ADDITIONAL NEEDS. REHAB NURSE PRACTITIONER SPOKE WITH PATIENT ABOUT GOING TO REHAB. DENIES ANY OTHER NEEDS. FALL PRECAUTIONS IN PLACE. CALL LIGHT WITHIN REACH.
[2021-06-05 11:10] VITALS: BP 115/81
[2021-06-05 16:00] VITALS: BP 110/71
[2021-06-05 19:28] VITALS: BP 127/76
--- NOTE | 2021-06-06 00:54 | NUR ---
PATIENTS CARES WHERE ASSSUMED AT SHIFT CHANGE. PATIENT WAS ASSESSED AND MEDS WHERE PASSED. PATIENT CONTINUES TO HAVE MANY STOOLS MOST LIKELY RELATED TO HER TUB FEEDING. PATIENT IS A TOTAL CARE. SHE IS UNABLE TO TURN HERSELF. SHE IS INCONTINENT OF STOOL. SHE DOES NOT CALL OUT PRIOR TO BM TO PROVIDE HER WITH A BED GARCIA.ROUNDS WHERE DONE, THE BED IS IN A LOW AND LOCKED POSITION.
[2021-06-06 02:23] LABS: HEMATOCRIT 32.8 % (37.0-47.0); HEMOGLOBIN 10.4 gm/dL (12.0-15.0); MCH 27.2 pg (26.0-34.0); MCHC 31.7 g/dL (28.0-37.0); MCV 85.8 fL (80.0-100.0); RBC 3.82 mil/uL (4.20-5.00); RDW 16.1 % (10.5-14.5); WBC 6.3 thou/uL (4.0-11.0)
[2021-06-06 03:39] VITALS: BP 145/92
[2021-06-06 04:40] LABS: CALCIUM 9.6 mg/dL (8.5-10.1); CREATININE 0.7 mg/dL (0.6-1.0); POTASSIUM 3.8 mmol/L (3.5-5.1)
[2021-06-06 07:30] VITALS: BP 151/97
--- NOTE | 2021-06-06 10:22 | NUR ---
Received call from RN regarding pt having multiple liquid bowel movements. Discussion w/ pharmacist and pt on lubiprostone which has laxative effects and used for IBS/constipation. Pharmacy to address dc med with hospitalists. Will also try a fiber containing formula to see if helps to thicken stool.
[2021-06-06] MEDS ORDERED: ENOXAPARIN30 MG/0.3 SUBQ (10:31)
[2021-06-06] MEDS ORDERED: PEPCID20 MG PER TUBE (10:31)
[2021-06-06] MEDS ORDERED: INFANTS' S40 MG/0.6 PER TUBE (10:31)
[2021-06-06] MEDS ORDERED: VALPROIC A250 MG/52 PER TUBE (10:31)
[2021-06-06] MEDS ORDERED: MIRALAX17 GM PER TUBE (10:31)
[2021-06-06] MEDS ORDERED: LANTUS100 UNIT/M SUBQ (10:31)
[2021-06-06] MEDS ORDERED: AMITIZA 24 MCG24 MCG PO ×2 (10:31→11:06)
[2021-06-06] MEDS ORDERED: COREG25 MG PER TUBE (10:31)
[2021-06-06] MEDS ORDERED: SEROQUEL 25 MG25 MG PER TUBE (10:31)
[2021-06-06] MEDS ORDERED: ACCUNEB SO1.25 MG/1 INH (10:31)
[2021-06-06] MEDS ORDERED: IPRAT-ALBUT 0.5-3 ML INH (10:31)
[2021-06-06] MEDS ORDERED: NOVOLOG100 UNIT/M SUBQ (10:31)
[2021-06-06] MEDS ORDERED: ACETAMINOP160 MG/54 PER TUBE (10:31)
[2021-06-06] MEDS ORDERED: OXYCODONE20 MG/1 ML PER TUBE (10:33)
[2021-06-06] MEDS ORDERED: LASIX 40 MG TAB40 MG PO (10:34)
[2021-06-06 11:50] VITALS: BP 126/85
[2021-06-06 15:00] VITALS: BP 118/81
--- NOTE | 2021-06-06 16:37 | NUR ---
PATIENT TRANSFERED TO N ROOM 505. REPORT CALLED TO YANICK SINGH. NO QUESTIONS OR CONERNS AT TIME OF REPORT.
[2021-06-06 16:54] VITALS: BP 118/81
== END 2021-06-06 17:39 | DRG 3 ==
LOC: ER 00:12 → EROBS 02:09 → ICU 02:09 → 2N 05-31 15:49
PROVIDERS: Emergency Medicine; Hospitalist; Internal Medicine; Internal Medicine Nephrology; Internal Medicine Pulmonary Disease; Nurse Practitioner Family; Pediatrics; Specialist; Surgery; ADMIT Hospitalist; ATTEND Hospitalist
PROC: 5A09357 Assistance with Respiratory Ventilation, Less than 24 Consecutive Hours, Continuous Positive Airway Pressure (ICD-10-PCS; principal; 2021-02-08)
PROC: XW033E5 Introduction of Remdesivir Anti-infective into Peripheral Vein, Percutaneous Approach, New Technology Group 5 (ICD-10-PCS; principal; 2021-02-08)
PROC: 02HV33Z Insertion of Infusion Device into Superior Vena Cava, Percutaneous Approach (ICD-10-PCS; principal; 2021-02-08)
PROC: 5A1955Z Respiratory Ventilation, Greater than 96 Consecutive Hours (ICD-10-PCS; principal; 2021-02-08)
PROC: 0B110F4 Bypass Trachea to Cutaneous with Tracheostomy Device, Open Approach (ICD-10-PCS; 2021-02-11)
PROC: 0DH68UZ Insertion of Feeding Device into Stomach, Via Natural or Artificial Opening Endoscopic (ICD-10-PCS; 2021-02-11)
PROC: 0DH60UZ Insertion of Feeding Device into Stomach, Open Approach (ICD-10-PCS; 2021-04-02)
PROC: 0DB60ZZ Excision of Stomach, Open Approach (ICD-10-PCS; 2021-04-02)
DX: A41.89 Other specified sepsis (principal); L89.213 Pressure ulcer of right hip, stage 3; U07.1 COVID-19; J12.82 Pneumonia due to coronavirus disease 2019; L89.893 Pressure ulcer of other site, stage 3; N17.0 Acute kidney failure with tubular necrosis; J80 Acute respiratory distress syndrome; K85.90 Acute pancreatitis without necrosis or infection, unspecified; G92.8 Other toxic encephalopathy; E43 Unspecified severe protein-calorie malnutrition; R65.21 Severe sepsis with septic shock; J69.0 Pneumonitis due to inhalation of food and vomit; T81.61XA Aseptic peritonitis due to foreign substance accidentally left during a procedure, initial encounter; E87.0 Hyperosmolality and hypernatremia; J44.0 Chronic obstructive pulmonary disease with (acute) lower respiratory infection; N39.0 Urinary tract infection, site not specified; K94.23 Gastrostomy malfunction; K56.7 Ileus, unspecified; G93.1 Anoxic brain damage, not elsewhere classified; G72.81 Critical illness myopathy; L02.211 Cutaneous abscess of abdominal wall; J45.909 Unspecified asthma, uncomplicated; R74.01 Elevation of levels of liver transaminase levels; E11.65 Type 2 diabetes mellitus with hyperglycemia; E66.01 Morbid (severe) obesity due to excess calories; E11.22 Type 2 diabetes mellitus with diabetic chronic kidney disease; I12.9 Hypertensive chronic kidney disease with stage 1 through stage 4 chronic kidney disease, or unspecified chronic kidney disease; E87.5 Hyperkalemia; K59.00 Constipation, unspecified; D64.9 Anemia, unspecified; E66.9 Obesity, unspecified; R13.10 Dysphagia, unspecified; R53.81 Other malaise; B96.1 Klebsiella pneumoniae [K. pneumoniae] as the cause of diseases classified elsewhere; B96.5 Pseudomonas (aeruginosa) (mallei) (pseudomallei) as the cause of diseases classified elsewhere; B37.9 Candidiasis, unspecified; Y83.8 Other surgical procedures as the cause of abnormal reaction of the patient, or of later complication, without mention of misadventure at the time of the procedure; Z68.38 Body mass index [BMI] 38.0-38.9, adult; Y82.8 Other medical devices associated with adverse incidents; Z79.899 Other long term (current) drug therapy
CPT/HCPCS: 10078; 10081; 10203; 27000; 50101; 50386; 50403; 50455; 50550; 50643; 50739; 50953; 51412; 56525; 56528; 57092; 57103; 57114; 58585; 58867; 62110; 62900; 65002; 65090; 85076

== ENCOUNTER 2021-05-31 15:01 | Inpatient (IN) | payer OTHER ==
[~2021-05-31] VITALS: Ht 160 cm; Wt 80.7 kg
[2021-06-06] MEDS ORDERED: AMITIZA 24 MCG24 MCG PO ×2 (10:31→11:06)
[2021-06-06] MEDS ORDERED: NOVOLOG100 UNIT/M SUBQ (10:31)
[2021-06-06] MEDS ORDERED: INFANTS' S40 MG/0.6 PER TUBE (10:31)
[2021-06-06] MEDS ORDERED: VALPROIC A250 MG/52 PER TUBE (10:31)
[2021-06-06] MEDS ORDERED: PEPCID20 MG PER TUBE (10:31)
[2021-06-06] MEDS ORDERED: MIRALAX17 GM PER TUBE (10:31)
[2021-06-06] MEDS ORDERED: ACETAMINOP160 MG/54 PER TUBE (10:31)
[2021-06-06] MEDS ORDERED: IPRAT-ALBUT 0.5-3 ML INH (10:31)
[2021-06-06] MEDS ORDERED: LANTUS100 UNIT/M SUBQ (10:31)
[2021-06-06] MEDS ORDERED: COREG25 MG PER TUBE (10:31)
[2021-06-06] MEDS ORDERED: SEROQUEL 25 MG25 MG PER TUBE (10:31)
[2021-06-06] MEDS ORDERED: ACCUNEB SO1.25 MG/1 INH (10:31)
[2021-06-06] MEDS ORDERED: ENOXAPARIN30 MG/0.3 SUBQ (10:31)
[2021-06-06] MEDS ORDERED: OXYCODONE20 MG/1 ML PER TUBE (10:33)
[2021-06-06] MEDS ORDERED: LASIX 40 MG TAB40 MG PO (10:34)
--- NOTE | 2021-06-06 17:20 | NUR ---
PT ARRIVED VIA BED AND WITH TRACH EQUIPEMENT. PT WAS COUGHING WHEN IN ROOM AND RT SUCTIONED PT THREW TRACH, PT HAS THICK YELLOW SPUTUM AND IS ABLE TO COUGH UP SPUTUM MOST OF THE TIME. PT HAS CAP ON TRACH AT THIS TIME WITH HUMIDIFIED AIR, PT ABLE TO [facility] NEEDS. PT HAS CALL LIGHT. PT HAS GUTIERREZ TO DD WITH CLEAR YELLOW URINE. PT NPO AT THIS TIME AND GETTING FEEDING THROUGH PEG TUBE, JEVIITY 55MLS/HR WITH 250ML FLUSH EVERY 6 HRS. PT HAD DIARRHEA WITH TUBE FEEDING VITAL 1.2, PT HAS NOT BEEN HAVING DIARRHEA WITH JEVITY.
[2021-06-06 17:30] VITALS: BP 123/76
--- NOTE | 2021-06-06 19:20 | NUR ---
TOOK OFF PT SPEAK VALVE AND APPLIED HUMIDIFIED OXYGEN ON VIA TRACH SHIELD.
[2021-06-06 20:14] VITALS: BP 135/74
--- NOTE | 2021-06-07 01:55 | NUR ---
assumed care approx 1900 evening 06/06. pt lying in bed with head of bed elevated at change of shift. 02 humidified at 10L per trach shield. resp therapy assisted pt with trach and uncapped at present. diaz to dd with dark yellow urine to bag. peg tube in place with Jevity at 55/hr. pt incontinent of bowel and turned and changed. pt NPO, meds crushed and given per peg tube. central line triple lumen to right neck IJ. continuous pulse oximeter in place sats 92% and greater. pt in isolation as ordered. bed alarm on and call light in reach. will continue to monitor.
[2021-06-07 05:56] LABS: HEMOGLOBIN 10.3 gm/dL (12.0-15.0); MCH 26.9 pg (26.0-34.0); MCHC 31.1 g/dL (28.0-37.0); MCV 86.4 fL (80.0-100.0); RBC 3.82 mil/uL (4.20-5.00); RDW 15.7 % (10.5-14.5)
[2021-06-07 06:17] LABS: ALBUMIN 2.7 g/dL (3.4-5.0); CALCIUM 9.6 mg/dL (8.5-10.1); CREATININE 0.7 mg/dL (0.6-1.0); POTASSIUM 3.6 mmol/L (3.5-5.1); TOTAL BILIRUBIN 0.4 mg/dL (0.2-1.0); TOTAL PROTEIN 7.9 g/dL (6.4-8.2)
[2021-06-07 09:04] LABS: FOLIC ACID 18.8 ng/mL (8.6-58.9)
--- NOTE | 2021-06-07 10:25 | NUR ---
50 yr old female admitted to [facility] on 02/08/21 with covid 19 PNA and acute respiratory failure. she has multiple consultants on case including pulmonary, ID, nephrology, wound care, surgery, psych. she was unable to be extubated and on 03/13/21 she had peg and trach placement. hospital course (118 day stay). Has a trach and peg. prior to hospital she lives at home with her 2 two daughters that live with her 14 and 21 yr old with special needs. few steps to enter. grandmother is watching the younger daughter. Janel was not currently work. independent with ADLs, IADLs.. No DME. No hh or rehab in the past. her mother is very supportive and can assist at discharge.
--- NOTE | 2021-06-07 10:32 | NUR ---
PT LYING IN BED WITH HEAD ELEVATED. PT DOES NOT SHOW ANY SIGNS OF RESP DISTRESS. PT HAS TRACH WITH HUMIDIFIED OXYGEN ON 15L. SPEAKER VALVE WAS PLACED OVER TRACH, PT DOES COUGH WITH ANY MANIPULATION OF TRACH. PT HAS JEVITY 1.5 RUNNING AT 55ML/HR WITH FLUSH SET UP EVERY 6 HOURS. PT TOLERATING FEEDING. PRIOR TO ADM MEDS IN PEG TUBE, ASPIRATION WAS OBTAINED FOR ANY RESIDUAL, NO RESIDUAL WAS SEEN. PT DOES ASK TO BE TURNED AND KNOW IF INCON. OF STOOL, PT HAS GUTIERREZ TO DD WITH CLEAR YELLOW URINE. APPLIED NEW STAT LOCK TO RT LEG FOR GUTIERREZ STABILITY DUE TO BEING SOILED. PT HAS JUGULAR TO RT NECK THAT IS SL.
--- NOTE | 2021-06-07 10:42 | NUR ---
THIS PATIENT IS NOTED TO HAVE A RIGHT IJ CENTRAL LINE ACCESS. DRESSING IS DUE TO BE CHANGED. NO IV MEDS ON THIS PATIENTS MAR. DISCUSSED WITH THE PATIENT AND STAFF NURSE THE IMPORTANCE OF OBTAINING AN ORDER FOR CENTRAL LINE REMOVAL TO DECREASE THE RISK OF A CENTRAL LINE ASSOCIATED BLOOD STREAM INFECTION, IF THE LINE IS NO LONGER NECESSARY.
--- NOTE | 2021-06-07 13:13 | NUR ---
Team meeting, recommendation, video swallow tomorrow. dietitian for tube feeding. dependent with dressing. max assist with bed mobility. mod to max assist with transfers, and did sit up in wheel chair. 2 days remove diaz. re team
--- NOTE | 2021-06-07 13:20 | NUR ---
ORDER OBTAIN FROM BENEFITS DIRECTOR FOR CENTRAL LINE REMOVAL. LINE REMOVED PER POLICY- AN OCCLUSIVE DRESSING WAS APPLIED
[2021-06-07 19:13] VITALS: BP 141/89
[2021-06-07 23:29] VITALS: BP 125/83
--- NOTE | 2021-06-08 01:06 | NUR ---
PT ALERT AND ORIENTED X 4. TRACH INTACT. COUGH PRODUCTIVE YELLOW SPUTUM. SUCTIONED AT START OF SHIFT BY DAY NURSE. PEG TUBE PATENT. GINA FEEDINGS WELL. GUTIERREZ PATENT DRAINING DARK YELLOW URINE. PT C/O HEADACHE. TYLENOL GIVEN ORDERED. HUMIDIFIED 02 PER TRACH MASK. ZGUARD TO BOTTOM PRN. BED ALARM ON FOR SAFETY. PT APPEARS TO BE SLEEPING ON HOURLY ROUNDS.
[2021-06-08 08:00] VITALS: BP 152/102
[2021-06-08 20:16] VITALS: BP 135/94
--- NOTE | 2021-06-09 01:12 | NUR ---
PT ALERT AND ORIENTED X 4. TRACH INTACT. SUCTIONED AT START OF SHIFT FOR SMALL AMT WHITE SPUTUM. 02 PER TRACH SHIELD. PEG TUBE INTACT. PT TOOK HS MEDS CRUSHED IN APPLESAUCE WITHOUT DIFFICULTY. GUTIERREZ PATENT DRAINING YELLOW URINE. PT DENIES PAIN OR DISCOMFORT. BED ALARM ON FOR SAFETY. PT APPEARS TO BE SLEEPING ON HOURLY ROUNDS.
[2021-06-09 08:33] VITALS: BP 134/92
--- NOTE | 2021-06-09 12:00 | NUR ---
ASSUMED CARE OF PATIENT. PT WAS ABLE TO EAT LUNCH WITHOUT ANY ISSUES. PT TOLERATING DIET AT THIS TIME. PT ALSO ABLE TO TAKE MEDS ORAL WITH YOGART. PT HAS TRACH CAP IN ORDER TO TALK. PT STILL HAS HUMIDIFIED OXYGEN ON WHILE IN BED. PT UP TO W/C TODAY WITH ASSIST X1. PT STILL HAS GUTIERREZ TO DD.
--- NOTE | 2021-06-10 03:56 | NUR ---
ASSSUMED CARE OF PT AT 1930 ON 06/09/21. PT IS A&OX4. REPORTED A HEADACHE EARLY THIS SHIFT THAT HAS IMPROVED WITH TYLENOL. REMAINS ON CONTACT ISOLATION PRECAUTION. TRACH & SHILED INTACT. SPEECH VALVE IN CONTAINER. THIS NURSE SUCTIONED PT TWICE THIS SHIFT. G-TUBE IN PLACE, CLAMPED. GUTIERREZ IN PLACE. PT IS TURNED Q2H. FALL PRECAUTIONS & HOURLY ROUNDING CONTINUED THIS SHIFT. MEDS CRUSHED IN YOGURT. CONTINUES ON ACHS ACCU CHECKS WITH MOD DOSE SLIDING SCALE INSULIN. LABS & VITALS REVIWED. WILL CONTINUE TO MONITOR.
[2021-06-10 05:06] VITALS: BP 120/78
[2021-06-10 09:58] VITALS: BP 138/96
--- NOTE | 2021-06-10 13:36 | NUR ---
PT HAS HAD PASSEY SHONNA VALVE IN ALL DAY EXCEPT WHEN RT HAS BEEN WITH PT. PT TOLERATING WELL. HAS GOOD EFFORT WITH CLEARING SECRETIONS. GUTIERREZ CATHETER REMAINS PATENT AND DRAINING WELL. WAS INCONTINENT OF STOOL X 1 THIS SHIFT.
--- NOTE | 2021-06-10 15:16 | NUR ---
PT SUCTIONED X 1 PER PT REQUEST. SMALL AMOUNT OF MUCOUS SUCTIONED. PT TOLERATED WELL. PASSEY SHONNA VALVE AND MASK SECURED BACK IN PLACE.
[2021-06-10 19:27] VITALS: BP 105/67
--- NOTE | 2021-06-11 01:38 | NUR ---
PT ASSESSMENT COMPLETED AND VSS. MEDS GIVEN ORDERED AND WELL TOLERATED. FALL PRECAUTIONS IN PLACE. ASST WITH REPOSITION FREQUENTLY. TRACH WNL. PT SAT WNL ON CONT 02 SAT MONITOR. PRN TYLENOL HELPFUL FOR A CHURCHILL. PEG TUBE INTACT. INSULIN GIVEN ORDERED. SNACK PROVIDED WITH OBSERVATION WHILE EATING. SLEEPING WELL AT THIS TIME. WILL CONTINUE TO MONITOR FREQUENTLY.
[2021-06-11 09:32] VITALS: BP 141/88
--- NOTE | 2021-06-11 18:30 | NUR ---
PT'S FAMILY AND MEDICAL OFFICE SECRETARY CAME THIS EVENING TO GIVE HER THE NEWS OF HER ELDEST SON'S PASSING. PT TEARFUL, BUT WAS ABLE TO REMEMBER GOOD TIMES WITH FAMILY. WAS LAUGHING AND ABLE TO GRIEVE SOME WITH FAMILY PRESENT. FAMILY THANKFUL THAT THEY WERE ALLOWED TO COME TELL PT IN PERSON AND THAT THEY WERE ALLOWED TO GRIEVE ALONG WITH THE PT.
--- NOTE | 2021-06-12 01:09 | NUR ---
ASSUMED CARE AT 1915 OF 06/11. PATIENT'S FAMILY WAS STILL VISITING AT SHIFT CHANGE AND PATIENT WAS NOT ABLE TO HAVE HER DINNER TRAY UNTIL THEY LEFT. MAXIMUM ASSIISTOF 1 WITH PIVOT TRANSFER TO / USING GB. PATIENT SAT UP IN [facility] TO HAVE HER DINNER AROUND 1999 WITH SUPERVISION, CONSUMED ABOUT 30% OF HER MEAL. SLIDING SCALE INSULIN WAS HELD ACCORDING TO PROTOCOL AND HS INSULIN GLARGINE ADMINISTERED. PATIENT TOLERATED ORAL MEDS CRUSHED IN YOGURT. RT PRESENT AT HS TO PROVIDE TRACH CARE. G-TUBE IN PLACE, INTACT AND CLAMPED. GUTIERREZ TO DD, DRAINING YELLOW URINE. ASSITED WITH Q2H TURNS. FALL PRECAUTIONS IN PLACE. CALL LIGHT WITHIN REACH, WILL CONTINUE TO MONITOR.
[2021-06-12 06:02] LABS: ABSOLUTE NEUTROPHILS 2.9 thou/uL (1.4-8.2); BASOPHILS 0.3 % (0.0-2.0); EOSINOPHILS 2.5 % (0.0-3.0); HEMATOCRIT 30.9 % (37.0-47.0); HEMOGLOBIN 9.9 gm/dL (12.0-15.0); LYMPHOCYTES 37.9 % (24.0-44.0); MCH 27.2 pg (26.0-34.0); MCHC 32.2 g/dL (28.0-37.0); MCV 84.6 fL (80.0-100.0); MONOCYTES 10.4 % (1.0-8.0); PLATELET COUNT 227 thou/uL (150-400); POLYS 48.9 % (36.0-66.0); RBC 3.65 mil/uL (4.20-5.00)
[2021-06-12 06:16] LABS: CALCIUM 9.2 mg/dL (8.5-10.1); CREATININE 0.7 mg/dL (0.6-1.0); MAGNESIUM 1.9 mg/dL (1.8-2.4); POTASSIUM 3.4 mmol/L (3.5-5.1)
[2021-06-12 08:40] VITALS: BP 138/85
--- NOTE | 2021-06-12 10:00 | NUR ---
PT SITTING UP IN CHAIR FOR BREAKFAST. PT MOM AT BEDSIDE. PT HAS OXYGEN BLED THROUGH TO VIV BARRAZA AT 35%. PT HAS GUTIERREZ TO DD WITH CLEAR YELLOW URINE. PT TOOK MEDS PO CRUSHED IN YOGART. PT DENIES ANY PAIN AT THIS TIME. G-TUBE CLAMPED AT THIS TIME AND TOLERATING DIET. PT HAS SPEAK VALVE ON AT THIS TIME. PT DOES HAVE COUGH AND ABLE TO BRING UP STRINGY CLEAR SPUTUM. PT STILL HAS WEAKNESS TO LOWER EXT. PT ABLE TO FEED SELF. PT HAS DRY SKIN TO LE AND FEET.
--- NOTE | 2021-06-12 11:30 | NUR ---
SUCTIONED PT AT THIS TIME VIA TRACH DUE TO COUGHING FOR A FEW HOURS AND NEEDING ASSISTANCE CLEARING TRACH AREA. PT MOM AND BROTHER AT BEDSIDE, MOM IS WASHING PT HAIR AND BROTHER IS PUTTING LOTION ON FEET.
--- NOTE | 2021-06-12 12:28 | NUR ---
ADM KDUR 40MEQ X1 PER ORDERS BROKEN UP IN YOGART.
[2021-06-12 20:12] VITALS: BP 129/80
--- NOTE | 2021-06-13 01:54 | NUR ---
PT ASSESSMENT COMPLETED AND VSS. MEDS GIVEN ORDERED AND WELL TOLERATED. FALL PRECAUTIONS IN PLACE. SUPPORTIVE FRIEND IN TO SEE PT EARLY DURING THE SHIFT. PT TALKED ABOUT SON THAT RECENTLY. PROVIDED MUCH EMOTIONAL SUPPORT. PEG TUBE WNL. TRACH WNL. ASST WITH FREQUENY REPOSITION USING PILLOWS FOR COMFORT. SLEEPING WELL. WILL CONTINUE TO MONITOR FREQUENTLY. CONT 02 SAT MONITOR ON AND WNL.
[2021-06-13 08:00] VITALS: BP 128/85
--- NOTE | 2021-06-13 09:23 | NUR ---
PT UP TO CHAIR AFTER WORKING WITH THERAPY. PT EATING WITH SOME COUGHING AND NOSE RUNNING. PT STATED IF SHE FEELS COLD SHE HAS A NOSE RUNNING. PT HAS PEDAL EDEMA TO FEET. PT HAS GUTIERREZ TO DD WITH CLEAR YELLOW URINE. PT DENIES ANY PAIN. PT UP X1-2 ASSIST WITH GAIT BELT. PT TRANSFER FROM BED TO W/C AND VICE VERSA. PT UP TO W/C WITH ALL MEALS. PT HAS SOME RHONCHI TO UPPER LOBES. PT IS COUGHING UP STRINGY SPUTUM. TRACH HAS SPEAK VALVE IN PLACE AT THIS TIME. STILL HAS HUMIDIFIED OXYGEN ON AT 10L AT 35%. PT TOOK MEDS CRUSHED WITH YOGART.
--- NOTE | 2021-06-13 10:27 | NUR ---
ASSISTED PT BACK TO BED FROM W/C. PT WAS ABLE TO STAND AND PIVOT TO BED X1 PERSON. SEEMS LIKE PT GETS WEAKER THE DAY PROGRESS, PT TRANSFERED TO BED X2 PERSON DURING THE EVENING YESTERDAY. PT DID HAVE SOME COUGHING AND WAS ABLE TO SPIT UP FROTHY SPUTUM, TOOK OFF SPEAK VALVE AND SEEN IF SECRETIONS WAS IN TRACH, USED YAUNKER TO OUTSIDE OF TRACH.
--- NOTE | 2021-06-13 12:15 | NUR ---
PT UP TO CHAIR FOR LUNCH. ST IN ROOM AND PT TOLERATING DIET AND THIN LIQUIDS WITHOUT ANY ISSUES.
[2021-06-13 20:15] VITALS: BP 130/85
--- NOTE | 2021-06-14 04:45 | NUR ---
ASSUMED CARE AT 1915 OF 06/13. PATIENT IS A&OX4, REPORTED A HEADACHE AND SOME NECK PAIN AT HS. PRN TYLENOL ADMINISTERED TO MANAGE PAIN. TOLERATED ORAL MEDS CRUSHED IN YOGURT. ASSISTED WITH REPOSITIONING FREQUENTLY OVERNIGHT. LOTION APPLIED TO BLE PER PATIENT REQUEST. PRAFO BOOTS ON WHILE IN BED. PATIENT REMAINS ON PRECAUTIONS FOR PSEUDOMONAS IN SPUTUM. RT WAS PRESENT AT HS TO PROVIDE TRACH CARE. FALL PRECAUTIONS IN PLACE, CALL LIGHT WITHIN REACH. WILL CONTINUE TO MONITOR.
[2021-06-14 09:48] VITALS: BP 151/96
--- NOTE | 2021-06-14 14:00 | NUR ---
team meeting, recommendation: will need assist with bills and pills. might need fww and wheelchair. trach supplies, o2 and tube feeding. Isolation for infection in sputum. re team
--- NOTE | 2021-06-14 18:18 | NUR ---
PATIENT IS ALERT AND ORIENTED X4. sHE IS ON 10L OXYGEN OVER HER TRACH. PATIENTS PEG TUBE IS CLAPBED. PATIENT HAS EATEN >50% OF ALL HER MEALS THIS SHIFT. PATIENT HAS TAKEN ALL OF HER MEDS CRUSHED WITH YOGURT THIS SHIFT. PATIENT HAS A GUTIERREZ CATHETER IN PLACE THAT IS PATENT. PATIENT HAS EXTREMLY DRY SKIN. EUCERIN CREAM IS APPLIED LIBERALLY TO PATIENTS BODY. PATIENT HAS BEEN UP WITH ALL MEALS THIS SHIFT. PATIENT WILL CONTINUE TO BE MONITORED.
[2021-06-14 20:50] VITALS: BP 135/89
--- NOTE | 2021-06-15 02:39 | NUR ---
ASSUMED CARE AT 191 OF 06/14. PATIENT IS A&OX4, ABLE TO MAKE NEEDS KNOWN. REPORTS A HEADACHE AND A NECK ACHE, WHICH IS MANAGED WITH PRN TYLENOL AND REPOSITIONING. ASSISTED WITH REPOSITIONING, PRAFO BOOTS ON WHILE IN BED. PATIENT WAS INCONTINENT OF BOWEL AT START OF SHIFT AND REQUIRED ENTIRE BED LINENS CHANGED. SHERIFF PROVIDED A BED BATH TO PATIENT AT THAT TIME. PATIENT'S GUTIERREZ WAS REMOVED AT 2200 OF 06/14 PER ORDER. WITHDREW 10CC OF NS FROM BALLOON. CATHETER REMOVED WITHOUT DIFFICULTY, CATHETER TIP INTACT. PATIENT TOLERATED PROCEDURE WELL. PATIENT INSTRUCTED TO NOTIFY NURSE OF ANY URGES TO VOID. AT 0200 PATIENT CALLED TO BE CHANGED DUE TO BLADDER INCONTINENCE. PATIENT REQUIRED ANOTHER FULL BED LINEN CHANGE. BLADDER SCANNED AND PVR WAS ONLY 47CC. PATIENT REPORTS SHE FELT A SLIGHT URGE TO VOID WITH THAT EPISODE OF BLADDER INCONTINENCE. PATIENT IS REMINDED TO CALL WITH ANY URGE TO VOID. FALL PRECAUTIONS IN PLACE, CALL LIGHT WITHIN REACH. WILL CONTINUE TO MONITOR.
[2021-06-15 08:01] VITALS: BP 148/90
--- NOTE | 2021-06-15 16:29 | NUR ---
ASSUMED CARE OF PATIENT AT 0700. PATIENT HAD NO C/O PAIN. ABLE TO GET UP FROM BED INTO WC WITH ONE ASSIST FOR MEALS. SPEAKING VALVE IN PLACE. PEG TUBE REMAINS CLAMPED. PATIENT ABLE TO VOID ON BEDPAN. HAS HAD NO NEED FOR INSULIN SO FAR THIS SHIFT. REMAINS IN PRECAUTIONS FOR PSEDUOMONAS IN SPUTUM. PRODUCTIVE COUGH. TAKES PILLS CRUSHED IN YOGURT. ADVANCED TO A REGULAR DIET FOR DINNER. TURNS SELF IN BED. PATIENT PROGRESSING TOWARD POC.
[2021-06-15 17:01] VITALS: BP 143/84
[2021-06-15 21:02] VITALS: BP 145/83
--- NOTE | 2021-06-16 03:58 | NUR ---
assumed care approx 1900 evening 06/15. pt awake and alert at change of shift. pts family visited later in evening. pt with trach shield in place, denies complaints. pt using bedpan tonight for bm and voiding. pt took meds crushed with yogurt. pt appears to be sleeping soundly off and on. bed alarm on and call light in reach. will continue to monitor.
[2021-06-16 05:47] LABS: ABSOLUTE NEUTROPHILS 2.9 thou/uL (1.4-8.2); BASOPHILS 0.3 % (0.0-2.0); EOSINOPHILS 3.1 % (0.0-3.0); HEMATOCRIT 30.7 % (37.0-47.0); HEMOGLOBIN 9.6 gm/dL (12.0-15.0); LYMPHOCYTES 38.3 % (24.0-44.0); MCH 26.6 pg (26.0-34.0); MCHC 31.3 g/dL (28.0-37.0); MCV 85.1 fL (80.0-100.0); MONOCYTES 9.4 % (1.0-8.0); PLATELET COUNT 210 thou/uL (150-400); POLYS 48.9 % (36.0-66.0); RDW 14.8 % (10.5-14.5)
[2021-06-16 05:51] LABS: CALCIUM 8.9 mg/dL (8.5-10.1); CREATININE 0.7 mg/dL (0.6-1.0); MAGNESIUM 1.4 mg/dL (1.8-2.4); POTASSIUM 3.4 mmol/L (3.5-5.1)
[2021-06-16 08:00] VITALS: BP 143/97
--- NOTE | 2021-06-16 15:53 | NUR ---
ASSUMED CARE OF PT AT 0700. PT A&OX4. PT IS INCONTINENT OF B&B. PT TOOK MEDS CRUSHED IN YOGURT. PT HAD FAMILY MEMBERS VISITING TODAY.
[2021-06-16 20:00] VITALS: BP 125/78
--- NOTE | 2021-06-17 04:25 | NUR ---
assumed care approx 1900 evening 06/16. pt lying in bed with head of bed elevated at change of shift. pt with trach shield in place and continuous pulse oximetry in place. pt took hs meds crushed with yogurt tolerating well. pt incontinent of bowel and bladder, assist with changing. pt appears to be sleeping off and on. bed alarm on and call light in reach. will continue to monitor.
[2021-06-17 07:28] VITALS: BP 130/89
--- NOTE | 2021-06-17 17:48 | NUR ---
ASSUMED CARE OF PATIENT AT 0700 THIS DAY. PATIENT AAX 4. PATIENT INCONTINENT OF URINE THIS MORNING BUT PROGRESSED THROUGH SHIFT TO BEING CONTINENT OF BOTH URINE AND BOWEL. APPETITE VERY GOOD WITH FAMILY MEMBER BRINGING IN DINNER FOR PATIENT. PATIENT UP TO WHEELCHAIR WITH EACH MEAL. BLOOD SUGARS MAINTAINED THROUGH OUT SHIFT. MEDICATIONS CRUSHED IN STRAWBERRY YOGURT IN SMALL MEDICINE CUP.
[2021-06-17 19:52] VITALS: BP 141/94
--- NOTE | 2021-06-18 02:46 | NUR ---
ASSUMED CARE AT 1935 OF 06/17. PATIENT IS A&OX4, ABLE TO MAKE NEEDS KNOWN. PATIENT REQUESTED FOR SUCTION OF TRACH AT START OF SHIFT DUE TO EXCESSIVE COUGHING AND SPUTUM IN AIRWAY. RT WAS PRESENT AT HS TO PERFORM TRACH CARE. PACI VALVE REMOVED AND PLACED IN BOX AT BEDSIDE.TRACH SHIELD IN PLACE. PATIENT REMAINS ON CONTACT PRECAUTIONS DUE TO PSEUDOMONAS IN SPUTUM. PATIENT HAD AN EPISODE OF BOWEL INCONTINENCE AT START OF SHIFT WHICH REQUIRE FULL LINEN CHANGE. HAS BEEN CALLING TO USE BEDPAN SINCE. ASSISTED WITH REPOSITIONING USING WEDGE AND PILLOWS FOR COMFORT. PRAFO BOOTS ON WHILE IN BED. NO PAIN REPORTED BY PATIENT. FALL PRECUATIONS IN PLACE, CALL LIGHT WITHIN REACH. WILL CONTINUE TO MONITOR.
[2021-06-18 08:00] VITALS: BP 149/92
--- NOTE | 2021-06-18 15:12 | NUR ---
THIS NURSE ASSUMED CARE OF PATIENT AT 0700 THIS SHIFT. PATIENT INCREASING COUGH EXERTION WITH SPUTUM. SUCTIONING REQUIRED AT TIMES. THIS NURSE AMBULATED PATIENT TO AND FROM BEDSIDE COMMODE THIS SHIFT. PATIENT INCREASING ENDURANCE WITH USE OF WALKER TO STABILIZE HERSELF. APPETITE IS GOOD. PATIENT ENJOYS PLENTY OF WATER AND ICE TO QUENCH THIRST AND HELP WITH SECRETIONS. PATIENT ENJOYED BEING DRESSED FOR THE DAY. PATIENT STILL EXHIBITING SHORTNESS OF BREATH UPON EXERTION TO WALKER, WHEELCHAIR, AND BED.
[2021-06-18 19:11] VITALS: BP 145/81
--- NOTE | 2021-06-19 03:51 | NUR ---
ASSUMED CARE AT 1915 OF 06/18. PATIENT IS A&OX4, ABLE TO MAKE NEEDS KNOWN. FAMILY WAS PRESENT AT BEDSIDE AT START OF SHIFT, AND PATIENT APPEARED HAPPY AND JOVIAL AROUND FAMILY. CALLING TO USE THE BEDPAN OVERNIGHT. REPORTED A HEADACHE AT HS, PRN TYLENOL ADMINISTERED PER PATIENT REQUEST. PATIENT IS ASSISTED WITH REPOSITIONING TOLERATED. TRACH CARE PROVIDED BY RT AT HS. NO SUCTION REQUIRED THIS SHIFT, PATIENT HAS BEEN COUGHIN INTERMITENTLY. FALL PRECAUTIONS IN PLACE, CALL LIGHT WITHIN REACH. WILL CONTINUE TO MONITOR.
[2021-06-19 08:00] VITALS: BP 126/65
--- NOTE | 2021-06-19 19:40 | NUR ---
THIS NURSE ASSUMED CARE OF THIS PATIENT AT 0700. PATIENT AOX4. PATIENT AMBULATES WELL TO BEDSIDE COMMODE WITH GAIT BELT AND WALKER WITH ONE ASSIST. PATIENT WALKED WITH THERAPIST THIS AFTERNOON. PATIENT'S ENDURANCE INCREASING WITH WALKER. PATIENT ENJOYS DRESSING INTO HER CLOTHES AND WEARS BRIEF DURING DAY. PATIENT'S SPIRIT GOOD. MEDICATIONS ARE CRUSHED AND PLACED IN STRAWBERRY YOGURT. PATIENT'S BLOOD SUGARS GOOD WITH METFORMIN AND NO INSULIN.
[2021-06-19 21:52] VITALS: BP 145/89
[2021-06-19 21:56] VITALS: BP 145/89
--- NOTE | 2021-06-19 23:31 | NUR ---
ASSUMED CARE OF PT AT 1915. PT IS A&OX4. CONTINUES WITH TRACH WITH 5L OF O2/SHIELD. SPEECH VALVE REMOVED & PLACED IN PURPLE CUP AT BEDSIDE. SUCTION EQUIPMENT AT BEDSIDE. PT IS STABLE. DENIES PAIN, DIFFICULTY BREATHING, OR ANY OTHER SYMPTOMS AT THIS TIME. IS ABLE TO TURN SELF. IS UP WITH 1 ASSIST, GB, WALKER. FALL PRECAUTIONS & HOURLY ROUNDING CONTINUED THIS SHIFT. LABS & VITALS REVIWED. WILL CONTINUE TO MONITOR. CALL LIGHT WITHIN REACH. REMAINS ON ISOLATION PRECAUTIONS FOR INFECTIOUS BACTERIA IN SPUTUM. IS ACROSS FROM NURSE STATION.
[2021-06-20 11:40] VITALS: BP 150/90
--- NOTE | 2021-06-20 14:55 | NUR ---
PT WALKED WITH THERAPY IN HALLWAY. GAIT STEADY WITH WALKER AND GAIT BELT. DESAT TO 87% ON RA WHILE WALKING. PT TOLERATING REGULAR DIET. MEDS CRUSHED IN YOUGURT. WILL CONTINUE TO MONITOR.
--- NOTE | 2021-06-21 02:20 | NUR ---
assumed care approx 1900 evening 06/20. pt sitting up in recliner at change of shift visiting with family at bedside. pt remains in isolation as ordered. pt assist into bed after family left. pts speaker valve removed and resp placed trach shield. pt has called out several times this night to be put on bedpan and pt with several diarrhea stools. stool specimen sent to lab for cdiff. pt appears to be sleeping soundly at present. call light in reach. bed alarm on , will continue to monitor.
[2021-06-21 08:00] VITALS: BP 125/79
--- NOTE | 2021-06-21 12:50 | NUR ---
Team meeting, recommendation. Diet changed regular thin no straw. Will need assist with medication and finances. will need family training with her mom prior to discharge. Will need dme, wheelchair, roller walker, oxygen, bsc and shower bench. Reteam next week with possible dc 07/03/21. She needs to be as independent. will need nursing.
[2021-06-21 22:23] VITALS: BP 155/82
--- NOTE | 2021-06-22 00:31 | NUR ---
PATIENT CARE WAS RESUMED AT 1900. SHE IS ALERT AND ORIENTED WITH MAX ASSIST WITH CARE.LUNGS ARE CLEAR BS ACTIVE X4 QUADS.SHE DENIES ANY DISCOMFORT AT THIS TIME.SHE TOOK HER MEDS CRUSHED WITH PUDDING. DOUG-CARE IS PROVIDED AND SHE IS REPOSITIONED.SHE IS CONTINENT OF BOWEL AND BLADDER.ABLE TO VERBALISED HER NEEDS. CONTINUE CARE
[2021-06-22 06:16] LABS: ABSOLUTE NEUTROPHILS 3.5 thou/uL (1.4-8.2); BASOPHILS 0.7 % (0.0-2.0); EOSINOPHILS 3.3 % (0.0-3.0); HEMATOCRIT 31.2 % (37.0-47.0); MCHC 32.1 g/dL (28.0-37.0); MONOCYTES 9.1 % (1.0-8.0); PLATELET COUNT 164 thou/uL (150-400); POLYS 52.9 % (36.0-66.0); RBC 3.71 mil/uL (4.20-5.00); RDW 15.4 % (10.5-14.5); WBC 6.7 thou/uL (4.0-11.0)
[2021-06-22 06:33] LABS: CALCIUM 8.9 mg/dL (8.5-10.1); CREATININE 0.6 mg/dL (0.6-1.0); MAGNESIUM 1.4 mg/dL (1.8-2.4); POTASSIUM 3.2 mmol/L (3.5-5.1)
[2021-06-22 07:58] VITALS: BP 149/92
--- NOTE | 2021-06-22 14:58 | NUR ---
jerzy visited with her mom, she agrees with discharge plan. she is willing to come in for family training with therapy and nursing if needed. happy bday to me, that my daughter will come home on my bday 07/03/21 per janie.
--- NOTE | 2021-06-22 17:00 | NUR ---
PT WORE PASSEY SHONNA VALVE ALL DAY TODAY WITHOUT INCIDENT. DID NOT NEED SUCTIONING. DID GIVE 1 TIME DOSE OF K+ AND MG+. DENIED ANY PAIN.
[2021-06-22 20:11] VITALS: BP 144/89
--- NOTE | 2021-06-23 01:05 | NUR ---
PT ASSESSMENT COMPLETED AND VSS. MEDS GIVEN ORDERED AND WELL TOLERATED. FALL PRECAUTIONS IN PLACE. UP TO THE BSC WITH ASST/GAIT/WALKER. MODERATE ASST NEEDED. VOIDING LARGE AMOUNT OF YELLOW URINE. CONT 02 SAT MONITOR ON. PASSING MIRROR VALVE IN PLACE. SLEEPING WELL. WILL CONTINUE TO MONITOR FREQUENTLY.
[2021-06-23 10:36] VITALS: BP 127/64
--- NOTE | 2021-06-23 14:22 | NUR ---
HAS HAD TRACH CAPPED ALL SHIFT. IS ON O2 BTWN 1-2L/NC AND TOLERATING WELL. REMAINS ON CONTACT PRECAUTIONS. ABLE TO MAKE NEEDS KNOWN. DENIES ANY PAIN OR DISCOMFORT.
[2021-06-23 20:00] VITALS: BP 146/85
[2021-06-24 07:20] VITALS: BP 128/79
--- NOTE | 2021-06-24 13:20 | NUR ---
REMAINS ON CONTACT PRECAUTIONS. HAS BEEN TURNED Q 2 HOURS. HAS HAD TRACH CAPPED ENTIRE SHIFT AND TOLERATED WELL. REMAINS ON O2 PER NC BTWN 1-2L. UP TO W/C FOR ALL MEALS AND BSC WHEN NEEDING TO GO TO THE BATHROOM.
--- NOTE | 2021-06-24 23:27 | NUR ---
PT ASSESSMENT COMPLETED AND VSS. MEDS GIVEN ORDERED AND WELL TOLERATED. FALL PRECAUTIONS IN PLACE. SAT WNL ON NC WITH CONT 02 SAT MONITOR. ASST WITH FREQUENT REPOSITION FOR COMFORT. PT HAD A LARGE LOOSE BM AT HS. VOIDING LARGE AMOUNTS OF URINE. PRN TYLENOL HELPFUL FOR CHURCHILL. SLEEPING WELL AT THIS TIME. WILL CONTINUE TO MONITOR FREQUENTLY.
[2021-06-25 08:41] VITALS: BP 120/45
[2021-06-25 08:43] VITALS: BP 129/79
[2021-06-25 10:45] VITALS: BP 129/79
--- NOTE | 2021-06-25 17:55 | NUR ---
Assumed pt care this morning from overnight shift. Pt presented flat and calm at this time, and was cooperative to cares. Pt oriented 4x at this time. Trach and peg tube present but not currently in use. Pt on 2 liters of oxygen satting 96 %; on room air mid 80% Have been encouraging pt to perform her own ADLs during this shift. Pt has been working with pt and ot in order to regain skills for ADLs during this shift, and presented with shortness of breath when overexerted. 1-2 person assist needed when toileting, as pt felt more comfortable using bedpan during this shift. Pt voices that she cannot feel when she is continent constantly, so have occasional episodes of incontinence. Bedpan used and pad replaced. Pt room arranged to help with ADLs. Pt toileted several times during shift. Pt took all medication crushed in yogurt without issues. No further concerns at this time.
[2021-06-25 21:28] VITALS: BP 121/76
--- NOTE | 2021-06-26 04:47 | NUR ---
patient aox4 makes needs known. patient contient this shift and uses bedside commode / bed mccarty. patient on 2 l of oxygen no soa or distress noted this shift. patient took meds and encouraged fluids. patient needs maximum assistance with adl, bed mobility, transfer and toileting.fall precaution in place. patient in bed asleep at this time breathing regular and unlaboured.
[2021-06-26 05:55] LABS: ABSOLUTE NEUTROPHILS 3.1 thou/uL (1.4-8.2); BASOPHILS 0.4 % (0.0-2.0); EOSINOPHILS 3.4 % (0.0-3.0); HEMATOCRIT 30.3 % (37.0-47.0); HEMOGLOBIN 9.7 gm/dL (12.0-15.0); MCH 26.5 pg (26.0-34.0); MCHC 31.8 g/dL (28.0-37.0); MCV 83.4 fL (80.0-100.0); PLATELET COUNT 215 thou/uL (150-400); POLYS 50.2 % (36.0-66.0); RBC 3.64 mil/uL (4.20-5.00); WBC 6.2 thou/uL (4.0-11.0)
[2021-06-26 05:58] LABS: CALCIUM 8.7 mg/dL (8.5-10.1); CREATININE 0.7 mg/dL (0.6-1.0); MAGNESIUM 1.6 mg/dL (1.8-2.4); POTASSIUM 3.9 mmol/L (3.5-5.1)
[2021-06-26 08:00] VITALS: BP 150/85
--- NOTE | 2021-06-26 08:58 | NUR ---
PT WAS SLEEPING THIS AM. PT UP TO BSC X1 ASSIST. PT ABLE TO STAND AND WALK A FEW STEPS TO W/C. PT HAS TRACH THAT IS CAPPED, PT DOES HAVE OXYGEN ON 2L NC. PT DENIES ANY PAIN. PT STILL TAKING MEDS CRUSHED IN YOGART, PT TOLERATING DIET WITH EATING MORE THAN 50%. PT PEG TUBE IS CLAMPED.
--- NOTE | 2021-06-26 18:28 | NUR ---
PT REFUSED TO EAT LUNCH AND DINNER. PT STATED SHE WAS HAVING DINNER BROUGHT TO HER TONIGHT. PT HAS BEEN UP TO BSC AND VOIDED. PT UP X1 ASSIST.
--- NOTE | 2021-06-27 01:12 | NUR ---
assumed care approx 1900 evening 06/26. pt sitting up in bed at change of shift visiting with family at bedside. pt alert and oriented x4. family stayed for short visit and pt requested to get ready for bed early. assist into gown and on bsc at hs. pt took meds crushed in yogurt. trach capped, 02 at 2L per n/c. continuous pulse oximeter on. pt appears to be sleeping soundly. bed alarm on and call light in reach. will continue to monitor.
[2021-06-27 08:00] VITALS: BP 144/82
--- NOTE | 2021-06-27 09:16 | NUR ---
PT AWAKING UP THIS AM. PT HAS OXYGEN ON 2L NC, PT DIDN'T REALLY HAVE OXYGEN IN NARES, SAT ON CON. PULSE OX IS 98%. PT NEEDED TO USE BATHROOM. PT ABLE TO STAND AND PIVOT TO BSC TO VOID. PT TO W/C AFTER TO EAT BREAKFAST. PT TAKES MEDS CRUSHED IN YOGART. PT TRACH IS STILL CAPPED. NO ISSUES WITH SWALLOWING MEDS OR DIET. PT HAS PEDAL EDEMA +2, NO SIGNS OF EDEMA TO ANKLES OR LE.
--- NOTE | 2021-06-27 13:09 | NUR ---
CALLED DR. DIAZ OFFICE TO SEE IF PT CAN HAVE PEG TUBE D/C DUE TO EATING OVER 50% OF MEALS.
--- NOTE | 2021-06-27 13:38 | NUR ---
CALLED DR. DIAZ ABOUT POSS D/C PEG TUBE PRIOR TO D/C. HIS RESPONSE IS TO LEAVE IN AND HE WILL ADDRESS IT IN HIS OFFICE WHEN SHE F/U.
[2021-06-27 19:45] VITALS: BP 153/101
[2021-06-27 21:45] VITALS: BP 131/80
--- NOTE | 2021-06-28 01:19 | NUR ---
ASSUMED CARE AT 1930 OF 06/27. PATIENT IS A&OX4, ABLE TO MAKE NEEDS KNOWN. REMAINS ON ISOLATION DUE TO PSEUDOMONAS IN SPUTUM. TRACH CARE PROVIDED BY RT AT . ON CONTINUOUS 1L OF O2 VIA NC OVERNIGHT. CONTINUOUS PULSE OXIMETRY ON. MODERATE ASSIST OF 1, USING GB AND WALKER TO TRANSFER TO BSC TO VOID YELLOW URINE. FALL PRECAUTIONS IN PLACE, CALL LIGHT WITHIN REACH. WILL CONTINUE TO MONITOR.
[2021-06-28 05:52] VITALS: BP 141/79
[2021-06-28 08:00] VITALS: BP 141/79
--- NOTE | 2021-06-28 13:17 | HC ---
[facility] [place] [address] CONSULTATION Name: RICCI DRISCOLL Room #: 505-P [facility] IN M.R.#: [id number] Admission: 06/06/21 Attend Phys: Kannan Lu MD Discharge: Date of : 72 Report #: [id number] THIS REPORT FOR: cc: [facility] - Clinic physician unknown [facility] - Clinic physician unknown Gabe Maya PhD ~ DATE OF SERVICE: 06/24/2021 NEUROBEHAVIORAL STATUS EXAM AGE: 50 ATTENDING PHYSICIAN: Kannan Lu MD RISK MANAGEMENT PROFESSIONAL: Gabe Maya, PhD CLINICAL PRESENTATION: The patient is a 50-year-old female, initially admitted to [facility] on 02/08/2021 with COVID-19 pneumonia and acute respiratory failure. The patient required PEG and tracheostomy placement and was noted to have right neglect. Her medical problem list included abdominal abscess, acute respiratory failure with hypoxia, acute kidney injury, asthma, COPD, COVID-19, diabetes mellitus type 2, hypertension and morbid obesity with a BMI of 40-44.9. Klebsiella pneumoniae was also reported. Her assessment on admission to the rehabilitation unit included critical illness myopathy, COVID-19 pneumonia with acute respiratory failure and sepsis, aspiration pneumonia, abdominal abscess, tinnitus status post exploratory laparoscopic washout, GISSEL improved, PEG tube placement, poorly controlled type 2 diabetes, anemia, stage III pressure ulcer in the right cheek and perirectal left gluteal area resolving and obesity. A complete description of her medical condition and history can be found in her medical record. Neuropsychological consultation was requested to provide assistance in the assessment of cognitive and emotional status and to provide recommendations and services. Prior to this most recent admission, the patient was living independently in her own home. She reports having been and having had 4 children. Two children have . She reports that her son was recently shot on an [employer] and killed. 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 She had 2 siblings. TECHNIQUES UTILIZED: Clinical interview, review of medical records, staff consultation and behavioral observation, mini mental status exam 2 standard version, category fluency. EXAMINATION FINDINGS: The patient was alert and cooperative with the assessment. She accurately described events surrounding her admission. She [facility] [address] [place] [address] CONSULTATION Name: RICCI DRISCOLL Room #: 505-P [facility] IN ..#: [id number] Admission: 06/06/21 Attend Phys: Kannan Lu MD Discharge: Date of : 72 Report #: [id number] does not present with aphasia or auditory or visual hallucinations. She describes her sleep and appetite as within normal limits. She does not report difficulty with memory, word finding or concentration. Performance on the MMSE 2 brief version is within normal limits with raw score of 16/16. She was 26/30 on the MMSE 2 standard version with some difficulty in concentration with serial sevens being 1/5. The patient was within normal limits in category fluency assessment. She appears to be showing an improvement in overall cognition. Speech therapy indicated comprehension is within normal limits. Mild deficits and expression are described along with mild to moderate deficits in cognition and memory. At this time, the patient is presenting with an improvement in overall neurocognitive functioning. However, mild neurocognitive disorder is suggested. 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 RECOMMENDATIONS: The patient is likely to require increased assistance in the management of instrumental activities of daily living upon discharge. Further compensatory strategies from speech therapy to help with management of medication, finances and nutrition will likely be helpful. Further assessment of mood may also be necessary as she reported the recent of her son. Thank you very much for allowing me to provide the consultation on this patient. <ELECTRONICALLY SIGNED> By: Gabe Maya, PhD 06/28/21 [id number] Gabe Maya, PhD /nt
--- NOTE | 2021-06-28 15:47 | NUR ---
Team meeting, recommendation if more days approved by Medicaid discharge on 07/06 vs 07/03, still needing assist with trach care, peg care, stairs and mobility. Her mom to come in for training with therapy. Patient going to be staying with her mom for a while at discharge. Cm visited with patient after team, she agrees with discharge plan.
[2021-06-28 21:45] VITALS: BP 137/89
--- NOTE | 2021-06-29 05:25 | NUR ---
ASSUMED CARE AT 1915 OF 2. PATIENT IS A&OX4, DENIES PAIN OR SHORTNESS OF BREATH. ON CONTINUOUS 1L OF O2 VIA NC AT . MINIMAL TO SBA WITH TRANSFER TO BSC, USING GB AND WALKER. ASSISTED WITH REPOSITIONING, PATIENT REPORTS SHE PREFERS TO USE PILLOW TO OFFLOAD HEELS AND NOT PRAFO BOOTS. EDUCATION ON BENEFITS OF PRAFO BOOTS PROVIDED. PEDAL EDEMA NOTED, BLE ELEVATED WHILE IN BED. FALL PRECAUTIONS IN PLACE, CALL LIGHT WITHIN REACH WILL CONTINUE TO MONITOR.
[2021-06-29 07:33] VITALS: BP 131/84
--- NOTE | 2021-06-29 10:11 | NUR ---
SPECIAL PERMISSION VIA UNDER TRIMMER HAS BEEN OBTAINED FOR PATIENT'S FAMILY TO TRAIN WITH THERAPIES, INCLUDING PT'S MOTHER AND CHILDREN TODAY FOR A BRIEF PERIOD OF TIME TO ENSURE SAFE DISCHARGE PLAN FOR NEXT WEEK.
--- NOTE | 2021-06-29 10:49 | NUR ---
CALLED DR. CARRANZA'S OFFICE TO CHECK ON TRACH REMOVAL. DR. CARRANZA IS OUT OF TOWN UNTIL SUNDAY 07/02. HUMANITIES DEPARTMENT CHAIR STATED HE WOULD CALL BACK FRIDAY EVENING.
--- NOTE | 2021-06-29 14:48 | NUR ---
ASSUMED CARE OF PT AT 0700 THIS AM. PT FAMILY IN FOR TRAINING. THIS NURSE SHOWED FAMILY HOW TO CRUSH MEDS AND ADMINISTER. THIS NURSE ALSO DEMONSTRATED HOW TO GIVE A LOVENOX INJECTION IN CASE PT DC'S HOME ON LOVENOX.
--- NOTE | 2021-06-29 16:30 | NUR ---
Pt's dc date is anticipated for 07/05 as pt's son's is on 07/06. W/c script and documentation faxed to [facility]. Referral called to their liason as they have a 20' w/c in stock. They will check insurance and confirm with the unit cm Friday. They are aware that she may need home o2 as well. Provider [facility] does not have any 20' in stock and [facility] does [employer]. Pt's trach is capped and peg tube likely to dc'd in the future as pt is eating greater than 50%. Will followup next week to finalize any other dme /or hh needs.
[2021-06-29 21:18] VITALS: BP 156/97
--- NOTE | 2021-06-30 01:24 | NUR ---
assumed care approx 1900 evening 06/29. pt lying in bed at change of shift. family visiting in evening. pt alert and oriented x4, appropriate and cooperative. pt up to bsc with minimal assist. pt took hs meds with yogurt tolerating well. pt appears to be sleeping soundly. bed alarm on and call light in reach. will continue to monitor.
[2021-06-30 09:15] VITALS: BP 134/92
--- NOTE | 2021-06-30 11:25 | NUR ---
PT DOES NOT LIKE TO BE WOKE UP UNTIL APPROX 0900 OR LATER. PT TAKES MEDS CRUSHED IN YOUGURT. TOLERATING REGULAR DIET. APPETITE GREAT. PT WILLINGLY WORKS WITH THERAPIES, STEADY GATE NOTED. WILL CONTNIUE TO MONITOR.
[2021-06-30 20:00] VITALS: BP 130/85
--- NOTE | 2021-07-01 02:50 | NUR ---
assumed care approx 1900 evening 06/30. pt alert and oriented x4,appropriate and cooperative. pt remains in isolation as ordered. assist pt with going to bathroom and voiding in toilet and also on bsc. 02 at 2L per n/c. pt appears to be sleeping soundly. bed alarm on and call light in reach. will continue to monitor.
[2021-07-01 08:10] VITALS: BP 131/87
--- NOTE | 2021-07-01 12:14 | NUR ---
THIS NURSE ASSUMED CARE OF THIS PATIENT AT 0700. PATIENT IS PREPARING FOR D/C 07/05/21 TO [facility]. PATIENT IS TITRATING O2 FROM 2 LITERS TO ROOM AIR. TRACH IS CAPPED. PATIENT PARTICIPATES IN RESPIRATORY THERAPY. PATIENT HAS NO IV ACCESS. BLOOD SUGARS ARE BREAKFAST AND DINNER ONLY. BS BEING MAINTAINED WELL. MEDICATIONS BEING CRUSHED IN STRAWBERRY YOGURT. PEG TUBE CLAMPED. BOWEL MOVEMENT ON 06/27 WITH DIARRHEA LESS AND LESS.
[2021-07-01 21:21] VITALS: BP 139/80
--- NOTE | 2021-07-01 22:52 | NUR ---
PT ASSESSMENT COMPLETED AND VSS. MEDS GIVEN ORDERED AND WELL TOLERATED. FALL PRECAUTIONS IN PLACE. SUPPORTIVE FRIEND IN TO SEE PT EARLY THIS EVENING. TYLENOL GIVEN FOR A CHURCHILL. UP TO THE BSC WITH ASST/GAIT. LARGE SOFT FORMED BM AT HS. PT SAT WNL ON 2L NC. SLEEPING WELL AT THIS TIME. WILL CONTINUE TO MONITOR FREQUENTLY.
--- NOTE | 2021-07-02 11:08 | NUR ---
THIS NURSE ASSUMED CARE OF PATIENT AT 0700. PATIENT ABLE TO SWALLOW MEDICATIONS WHOLE ONE AT A TIME WITH WATER. CONSULTING WITH GI TO D/C TRACH AND ENT FOR PEG TUB D/C. PATIENT ON ROOM AIR DURING DAY. WILL INTERMITTENTLY PULSE OX TO MONITOR O2 SATURATION LEVELS THROUGH OUT DAY.
--- NOTE | 2021-07-02 15:05 | NUR ---
PEG TUBE OF PATIENT TAKEN OUT THIS SHIFT. DR. CARRANZA CONSULTED WITH DR. DIAZ FOR DC OF TRACH. DR. CARRANZA SAID THAT IT WAS ALRIGHT TO DC TRACH D/T PATIENT BEING DISCHARGED THIS FRIDAY.
--- NOTE | 2021-07-02 16:22 | NUR ---
Spoke with pt's mother and attempted to conf call to include the pt to discuss the plan for her dc home on 07/05. Call was unsuccessful so the pt's mother is coming up to the hospital to bring her dinner and will clarify pt's plan to return to her home address [place] vs her mothers home in [place]. Family is planning on 24hr supervision and support. W/c has been ordered per [facility] and will be delievered on Fri. Family to purchase or borrow a used Rollar walker. Awaiting exercise ox/sats and decision about trach being dc'd to order O2/humidification/suction/or trach supplies. Pt's peg was dc'd today. HH referrals initiated to [facility], [facility] , [facility], [facility], [facility], and call center manager HH. [facility]/and [facility] indicate they do not accept this plan. [facility] is on diversion in her area. Awaiting response from the others as they are checking the insurance plan. Super[employer] contacted the ins plan and they indicate that the pt's plan would cover therapy as well as nursing for hh. Pt's mother notes the pt utilized [facility] prior to admission. Call placed to try and make a f/u appt for 1-2 weeks after dc and writer technical publications was sent to the nurse triage line to try and facilitate a quicker appt [phone]. Pt's son's is on Friday07/06/21. Will follow.
[2021-07-02 19:27] VITALS: BP 141/82
--- NOTE | 2021-07-03 00:10 | NUR ---
PT ASSESSMENT COMPLETED AND VSS. MEDS GIVEN ORDERED AND WELL TOLERATED. FALL PRECAUTIONS IN PLACE. PEG TUBE REMOVED DURING THE DAY AND DRESSING DRY AND INTACT. PT FELT MORE COMFORTABLE CRUSHING PILLS WITH YOGART THIS EVENING. PT UP TO THE BSC WITH ASST. PT STATES THAT SHE IS EXCITED ABOUT D/C ON FRIDAY BUT IS NERVOUS ALSO. PROVIDED MUCH EMOTIONAL SUPPORT. SAT 88% ON RA AT HS WHEN TIRED. PT PLACED ON 2L NC. SAT NOW UP TO 96%. PT SLEEPING WELL. WILL CONTINUE TO MONITOR FREUQENTLY.
[2021-07-03 05:50] LABS: ABSOLUTE NEUTROPHILS 3.5 thou/uL (1.4-8.2); BASOPHILS 0.6 % (0.0-2.0); EOSINOPHILS 4.6 % (0.0-3.0); HEMATOCRIT 33.6 % (37.0-47.0); HEMOGLOBIN 10.7 gm/dL (12.0-15.0); LYMPHOCYTES 34.6 % (24.0-44.0); MCH 26.8 pg (26.0-34.0); MCV 83.7 fL (80.0-100.0); MONOCYTES 9.4 % (1.0-8.0); PLATELET COUNT 245 thou/uL (150-400); POLYS 50.8 % (36.0-66.0); RBC 4.01 mil/uL (4.20-5.00); RDW 15.1 % (10.5-14.5); WBC 6.9 thou/uL (4.0-11.0)
[2021-07-03 06:04] LABS: CALCIUM 8.7 mg/dL (8.5-10.1); CREATININE 0.8 mg/dL (0.6-1.0); MAGNESIUM 1.9 mg/dL (1.8-2.4); POTASSIUM 3.7 mmol/L (3.5-5.1)
[2021-07-03 08:00] VITALS: BP 123/83
[2021-07-03 20:15] VITALS: BP 153/96
--- NOTE | 2021-07-03 20:25 | NUR ---
THIS NURSE ASSUMED CARE OF PATIENT AT 0700. PATIENT PREPARING FOR DISCHARGE FRIDAY. PATIENT PROGRESSING TOWARDS INDEPENDENCE. PATIENT ABLE TO TAKE MEDICATIONS WHOLE, ONE BY ONE, WITH WATER. PATIENT AMBULATED WELL WITH ONE ASSIST TO BEDSIDE COMMODE THIS MORNING. PATIENT ABLE TO SCOOT IN BED TO ADJUST POSITIONS. PATIENT AMBULATES HEEL OFF WITH PILLOW UNDERNEATH.
--- NOTE | 2021-07-04 02:42 | NUR ---
ASSUMED CARE AT 1930 OF 07/03. PATIENT IS A&OX4. ABLE TO MAKE NEEDS KNOWN. STAND BY ASSIST WITH TRANSFERS AND AMBULATION USING GB AND WALKER. PATIENT IS STILL EXHIBITING SOB DURING TRANSFER, ON 2L OF O2 VIA NC, WITH 02 SAT REMAINING >96%. LUQ DRESSING FROM PEG TUBE REMOVAL REMAINS C/D/I. TOLERATED ORAL MEDS CRUSHED IN YOGURT. DENIES PAIN. FALL PRECAUTIONS IN PLACE, CALL LIGHT WITHIN REACH. WILL CONTINUE TO MONITOR.
[2021-07-04 08:00] VITALS: BP 141/96
[2021-07-04 14:02] VITALS: BP 141/96
--- NOTE | 2021-07-04 14:08 | NUR ---
DC plan is home tomorrow with hh. CM still working on locating a hh provider that will accept pt insurance plan and that can accept. [facility], [facility] and [facility] declined due to staffing/or at capacity with their medicaid cases.[facility] only does peds. Message left for crew caller HH as well as the pt's [facility] case technician Emi iRbeirot [phone] auth #[id number] to see if she can help locate a provider from the insurance side. [facility] contacted to see if they can do a few fátima visits. F/u appointment arranged with [facility] Dr. Astorga for Friday08/10/21 AT 8:20am as this was the soonest appt. Message left for their triage nurse to see if they can squeeze her in sooner. They also noted that pt can call daily to check for cancelations. Pt's has been decannulated and is having a exercise ox/ra sat per RT to see if she needs home o2. W/c being delievered by [facility] today. Family to work on getting a used rwalker. Nursing will need to put in pt's pharmacy info for dc tomorrow. Pt's family is wanting to pick her up as early as possible tomorrow. All parties hoping pt will be dc ready by lunchtime. Will follow.
[2021-07-04 14:29] VITALS: BP 141/96
--- NOTE | 2021-07-04 16:30 | NUR ---
PATIENT ALERT AND ORIENTED X 4. UP WITH SBA AND WALKER. CALM AND PLEASANT. MAKES NEEDS KNOWN. TAKING MEDS WHOLE WITH WATER WITHOUT DIFFICULTY. TRACH REMOVED TODAY BY DR DIAZ. NO RESPIRATORY ISSUES. PLAN TO DC HOME TOMORROW
[2021-07-04 20:29] VITALS: BP 152/97
--- NOTE | 2021-07-05 05:17 | NUR ---
ASSUMED CARE AT 1915 OF 07/04. PATIENT IS A&OX4, ABLE TO MAKE NEEDS KNOWN. STAND BY ASSIST WITH TRANSFER TO [facility]. DRESSING OVER TRACH SITE AND PEG TUBE SITE REMAIN CLEAN DRY AND INTACT. DENIES PAIN OR SHORTNESS OF BREATH. ON ROOM AIR WITH O2 SAT REMAINING ABOVE 94%. ASSITED WITH REPOSITIONING IN BED. TOLERATED ORAL MEDICATION WHOLE, ONE AT A TIME WITH THIN LIQUIDS. FALL PRECAUTION IN PLACE, CALL LIGHT WITHIN REACH. WILL CONTINUE TO MONITOR.
--- NOTE | 2021-07-05 08:11 | NUR ---
PATIENT WITH O2 SAT AT 84% ON ra AT REST WHILE LYING IN BED-WHEN THIS RN GOT TO ROOM, PATIENT DOWN TO 76% ON RA STILL LYING IN BED. PLACED ON 2L O2 AND RECHECKED-UP TO 97% ON 2LNC. PATIENT DENIES SOB/DIFFICULTY BREATHING
[2021-07-05 09:21] VITALS: BP 127/90
[2021-07-05 09:24] VITALS: BP 141/96
[2021-07-05 10:00] VITALS: BP 141/96
[2021-07-05] MEDS ORDERED: VENTOLIN HFA 1818 GM INH (10:14)
[2021-07-05] MEDS ORDERED: COREG25 MG PER TUBE (10:14)
[2021-07-05] MEDS ORDERED: PEPCID20 MG PER TUBE (10:14)
[2021-07-05] MEDS ORDERED: GLIPIZIDE ER2.5 MG PO (10:14)
[2021-07-05] MEDS ORDERED: SEROQUEL 25 MG25 MG PO (10:14)
[2021-07-05] MEDS ORDERED: BAYER CHEWABLE81 MG PO (10:14)
[2021-07-05] MEDS ORDERED: DEPAKOTE500 MG PO (10:14)
[2021-07-05] MEDS ORDERED: LASIX 40 MG TAB40 MG PO (10:14)
--- NOTE | 2021-07-05 11:56 | NUR ---
Pt dcing home around noon today with her mother. Plan is to go to mom's house in [place] today and maybe stay there a couple days to get through the . (This is different from our previous conversations) Script and documentation for home o2 faxed and confirmed with Melvina with [facility]. [facility]vina was here this am and instructed the pt on her portable tank and delievered her w/c. Pt has qualifying roomair sats in the 80's and 70's after being off o2 overnight. [facility] is able to do a few fátima visits but will also see if they can do a one time contract with pt's ins plan since we were not able to find a in network provider willing to accept. Pt's mother is aware of the whole person program and HCBS services. Guardian [facility]ack[facility] will f/u with them. Mom also aware of the [facility] appt with Dr Astorga on 08/10 and she can take her. Dc plan confirmed with pt's mother. Pt is excited to be leaving the hospital and going home to be with her family. DC summary and orders faxed to both [facility] and [facility].
--- NOTE | 2021-07-05 13:45 | NUR ---
Team meeting, cont with dc today, family here to bring her home. Team went to tell her congratulation here along with other hospital staff.
== END 2021-07-05 12:50 | disposition home health service (06) | DRG 682 ==
PROVIDERS: Nurse Practitioner; Nurse Practitioner Family; ADMIT Physical Medicine & Rehabilitation; ATTEND Physical Medicine & Rehabilitation
DX: N17.0 Acute kidney failure with tubular necrosis (principal); L89.893 Pressure ulcer of other site, stage 3; L89.223 Pressure ulcer of left hip, stage 3; J96.01 Acute respiratory failure with hypoxia; U07.1 COVID-19; K65.9 Peritonitis, unspecified; J69.0 Pneumonitis due to inhalation of food and vomit; A41.9 Sepsis, unspecified organism; G92.9 Unspecified toxic encephalopathy; R65.20 Severe sepsis without septic shock; G72.81 Critical illness myopathy; K52.1 Toxic gastroenteritis and colitis; L02.211 Cutaneous abscess of abdominal wall; K56.7 Ileus, unspecified; N18.9 Chronic kidney disease, unspecified; E66.01 Morbid (severe) obesity due to excess calories; G31.84 Mild cognitive impairment of uncertain or unknown etiology; D63.8 Anemia in other chronic diseases classified elsewhere; I12.9 Hypertensive chronic kidney disease with stage 1 through stage 4 chronic kidney disease, or unspecified chronic kidney disease; R13.10 Dysphagia, unspecified; T38.3X5A Adverse effect of insulin and oral hypoglycemic [antidiabetic] drugs, initial encounter; Y92.89 Other specified places as the place of occurrence of the external cause; Z68.31 Body mass index [BMI] 31.0-31.9, adult; Z93.1 Gastrostomy status; Z88.8 Allergy status to other drugs, medicaments and biological substances
CPT/HCPCS: 10112